=== PATIENT | female | born 1955 | race Caucasian/White ===

== ENCOUNTER 2023-05-11 08:03 | Outpatient (OUT) | payer MEDICARE, OTHER, SELFPAY ==
--- NOTE | 2023-05-11 08:15 | XR_ITS ---
The [address] [address] Patient Name: JAMES AYALA MRN: [id number] date: 1955 Sex: F Assigned Patient Location: [facility] Current Patient Location: [facility] Accession/Order Number: [id number] Exam Date: 05/11/2023 08:15 Report Date: 05/11/2023 08:39 At the request of: DANNY GUY Procedure: XR abdomen 1V EXAMINATION: XR abdomen 1V HISTORY: Kidney Stone N20.0 COMPARISON: XR KUB 08/02/2018 FINDINGS: KIDNEY/URETER - RIGHT: No visible renal or ureteral calcifications. KIDNEY/URETER - LEFT: No visible renal or ureteral calcifications. PELVIS: No visible ureteral stones. Chronic pelvic calcifications consistent with phleboliths. BOWEL: No abnormal dilation or deviation. BONES: Posterior mechanical fusion L3-4-5. OTHER: Multiple surgical clips within abdomen. XR/XR abdomen 1V IMPRESSION: 1. No appreciable urinary tract calculi. Electronically authenticated by: ANN PERKINS Date: 05/11/2023 08:39
== END 2023-05-11 08:04 | disposition home or self-care (01) ==
PROVIDERS: Visit Provider Urology
DX: N20.0 Calculus of kidney (principal)
CPT/HCPCS: 74018

== ENCOUNTER 2024-04-17 03:18 | Emergency (ER) | payer MEDICARE, OTHER, SELFPAY ==
[2024-04-17 03:24] VITALS: BP 188/99; PULSE 81; TEMP 36.6; O2SAT 98; BMI 32.3
--- NOTE | 2024-04-17 03:42 | ED.GENADUL1 ---
HPI HPI - General Adult General Chief complaint: Back Pain/Injury Stated complaint: flank pain Time Seen by Provider: 04/17/24 03:37 Source: patient Mode of arrival: walk-in Limitations: no limitations History of Present Illness HPI narrative: left flank pain 2 days radiates to LLQ. Past lumbar back surgery. Denies pain radiating down her leg. no fever or nausea Related Data Home Medications ?Medication ?Instructions ?Recorded ?Confirmed cetirizine 10 mg tablet (24Hour 10 mg PO DAILY 04/17/24 04/17/24 Allergy) losartan 100 mg tablet 100 mg PO DAILY 04/17/24 04/17/24 omeprazole 20 mg capsule,delayed 20 mg PO DAILY 04/17/24 04/17/24 release potassium bicarbonate-citric acid 25 meq PO BID 04/17/24 04/17/24 25 mEq effervescent tablet (Klor-Con/EF) Allergies Allergy/AdvReac Type Severity Reaction Status Date / Time Sulfa (Sulfonamide Allergy Rash Verified 04/17/24 03:28 Antibiotics) codeine AdvReac Nausea Verified 04/17/24 03:28 Opioid HPI Opioid Management Most Recent Opioid Data: Last Pain Scale 0 04/17/24 04:57 Last ED Pain Assessment 04/17/24 04:57 Last MAR Pain Assessment 04/17/24 04:05 Review of Systems ROS Status of ROS 10 or more systems reviewed and unremarkable except as noted in history and below [facility] Medical History (Updated 04/17/24 @ 06:39 by Srikanth Snyder MD) HTN (hypertension) ?I10 - Essential (primary) hypertension (ICD-10) Surgical History (Updated 04/17/24 @ 03:34 by Krystal Molina) Bariatric surgery status ?Z98.84 - Bariatric surgery status (ICD-10) Exam Constitutional Vital Signs, click to edit/add: Last Vital Signs Temp 98 F 04/17/24 03:24 Pulse 62 04/17/24 05:53 Resp 16 04/17/24 05:53 BP 97/67 04/17/24 05:53 Pulse Ox 97 04/17/24 05:53 O2 Del Method Room Air 04/17/24 05:00 Common normals: no apparent distress, average body habitus and oriented x3 HENMT Common normals: normocephalic and head/scalp atraumatic Eye Common normals: EOMs intact bilaterally and conjunctivae normal Respiratory Common normals: normal respiratory effort, no retractions, no use of accessory muscles and clear to auscultation bilaterally Cardio Common normals: regular rate, regular rhythm, S1 normal heart sound and S2 normal heart sound Back & Pelvis Other: mild L CVA tenderness Extremity Common normals: normal to inspection and full ROM Neuro Common normals: oriented x3, CN's II-XII intact bilaterally and moves all extremities Psych Appearance: grossly normal Course Vital Signs Vital signs: Vital Signs Temperature 98 F 04/17/24 03:24 Pulse Rate 81 04/17/24 03:24 Respiratory Rate 20 04/17/24 03:24 Blood Pressure 188/99 H 04/17/24 03:24 Pulse Oximetry 98 04/17/24 03:24 Oxygen Delivery Method Room Air 04/17/24 03:24 Temperature 98 F 04/17/24 03:24 Pulse Rate 62 04/17/24 05:53 Respiratory Rate 16 04/17/24 05:53 Blood Pressure 97/67 04/17/24 05:53 Pulse Oximetry 97 04/17/24 05:53 Oxygen Delivery Method Room Air 04/17/24 05:00 Medical Decision Making [facility] Narrative Medical decision making narrative: patient presents complaining of left CVA pain radiating to her LLQ suspicious for kidney stone. Past history of stones. CT without finding of left ureteral stone. did find non obstructive right 2mm stone. labs unremarkable except mild elevated Random BS at 128. likely elevated due to pain. UA pending. Pain has improved nicely with Toradol UA returned without findings of infection. she is advised that her back pain is likely the cause of her pain. Discharged with flexeril and advised to follow up with her doctor Lab Data Labs: Lab Results 04/17/24 04/17/24 Range/Units 03:32 05:43 WBC 8.3 (4.0-11.0) 10^3/uL RBC 4.65 (4.20-5.40) 10^6/uL Hgb 13.4 (12.0-16.0) g/dL Hct 42.3 (36.0-48.0) % MCV 91.0 (81.0-99.0) fL MCH 28.8 (26.7-34.0) pg MCHC 31.7 (29.9-35.2) g/dL RDW 13.4 (11.0-15.0) % Plt Count 233 (150-450) 10^3/uL MPV 10.7 (9.5-13.5) fL Neut % (Auto) 67.3 (43.0-75.0) % Lymph % (Auto) 24.8 (20.5-60.0) % Dane % (Auto) 5.4 (1.7-12.0) % Eos % (Auto) 0.6 L (0.9-7.0) % Baso % (Auto) 0.7 (0.2-2.0) % Neut # (Auto) 5.6 (1.4-6.5) 10^3/uL Lymph # (Auto) 2.1 (1.2-3.8) 10^3/uL Dane # (Auto) 0.5 (0.3-0.8) 10^3/uL Eos # (Auto) 0.1 (0.0-0.7) 10^3/uL Baso # (Auto) 0.1 (0.0-0.1) 10^3/uL Abs Immat Gran (auto) 0.10 H (0.00-0.03) 10^3/uL Imm/Tot Granulo (auto) 1.2 H (0.0-0.5) % Sodium 137 (136-145) mmol/L Potassium 4.1 (3.5-5.1) mmol/L Chloride 102 (98-107) mmol/L Carbon Dioxide 28.8 (21.0-32.0) mmol/L Anion Gap 10.3 BUN 12.0 (7.0-18.0) mg/dL Creatinine 0.79 (0.55-1.02) mg/dL Est GFR ( Amer) >60 (>=60) Est GFR (Non-Af Amer) >60 (>=60) BUN/Creatinine Ratio 15.2 Glucose 128 H (74-106) mg/dL Calcium 9.2 (8.5-10.1) mg/dL Urine Color Yellow (YELLOW) Urine Clarity Clear (CLEAR) Urine pH 6.5 (5.0-9.0) Ur Specific [place] 1.020 (1.005-1.025) Urine Protein Negative (NEG/TRACE) mg/dL Urine Glucose (UA) Negative (NEGATIVE) mg/dL Urine Ketones Negative (NEGATIVE) mg/dL Urine Occult Blood Negative (NEGATIVE) Urine Nitrite Negative (NEGATIVE) Urine Bilirubin Negative (NEGATIVE) Urine Urobilinogen 0.2 (0.2-1.0) EU/dL Ur Leukocyte Esterase Small A (NEGATIVE) Urine RBC None seen (0-2) #/HPF Urine WBC 2-5 A (NONE SEEN) #/HPF Ur Squamous Epith Cells Rare (NONE/RARE) #/LPF Urine Crystals None seen (None Seen) #/HPF Amorphous Sediment Rare Urine Bacteria None seen (NONE SEEN) #/HPF Urine Casts None seen (NONE SEEN) #/LPF Urine Mucus Trace A (NONE SEEN) Ur Culture Indicated? No Discharge Plan Discharge Stand Alone Forms: Work/School Release, Portal Instructions Chief Complaint: Back Pain/Injury Clinical Impression: Acute left flank pain Patient Disposition: Home, Self-Care Prescriptions / Home Meds: No Action losartan 100 mg tablet 100 mg PO DAILY Klor-Con/EF 25 mEq tablet, effervescent 25 meq PO BID omeprazole 20 mg capsule,delayed release(DR/EC) 20 mg PO DAILY cetirizine [24Hour Allergy] 10 mg tablet 10 mg PO DAILY Print Language: Hong [place]er Instructions: Flank Pain (ED) Referrals: Physician,Non-Staff, MD [Primary Care Provider] - 1 week
--- NOTE | 2024-04-17 03:43 | CT_ITS ---
The [address] [address] Patient Name: JAMES AYALA MRN: [facility]:[id number] date: 1955 Sex: F Assigned Patient Location: ER Current Patient Location: Accession/Order Number: [id number] Exam Date: 04/17/2024 04:08 Report Date: 04/17/2024 05:21 At the request of: TEJ MEZA Procedure: CT abdomen pelvis wo con EXAM: CT abdomen pelvis wo con HISTORY: left flank pain COMPARISON: CT abdomen and pelvis examination dated 05/24/2021. TECHNIQUE: Noncontrast axial CT images through the abdomen and pelvis were obtained with coronal and sagittal reformats. Dose reduction techniques were achieved by using automated exposure control and/or adjustment of mA and/or kV according to patient size and/or use of iterative reconstruction technique. FINDINGS: There is a stable, likely benign 1.7 cm nodule in the right lower lobe (series 3, image 1). Abdomen: Please note that the sensitivity for detection of focal lesions or vascular disease is markedly reduced without intravenous contrast. The liver and spleen are unremarkable. There is no intra or extrahepatic biliary duct dilatation. The gallbladder is surgically absent. There are nonobstructive right renal calculi measuring up to 2 mm. No ureteral calculus is seen. There is colonic diverticulosis without evidence of acute inflammation. There are postsurgical changes of a gastric bypass. Otherwise, the pancreas, adrenal glands, and bowel loops, including the appendix, are unremarkable. There is no mesenteric or retroperitoneal lymphadenopathy. Pelvis: The bladder demonstrates wall thickening. The rectum is unremarkable. There is no iliac or inguinal lymphadenopathy. The uterus is present. The left ovary appears within normal limits by CT. The right ovary is not clearly seen. There is mild atherosclerotic disease. Bone windows show no aggressive osseous lesions. There are postsurgical changes of L3-L5 posterior spinal fusion. The hardware causes streak artifact which renders evaluation of adjacent structures suboptimal. There is some lucency about the L5 screws. There is a new compression deformity of the L1 vertebral body. CT/CT abdomen pelvis wo con IMPRESSION: 1. Nonobstructive right renal calculi with no ureteral calculus or left renal calculi seen. 2. Status post cholecystectomy and gastric bypass. 3. Colonic diverticulosis without evidence of acute inflammation. 4. Normal appendix. 5. Urinary bladder wall thickening. Please correlate with urinalysis for infection. 6. Remote appearing compression deformity of the L1 vertebral body, new since at least 05/24/2021. Please correlate with point tenderness. 7. Postsurgical changes of L3-L5 posterior spinal fusion with some lucency about the L5 screw suggestive of loosening. Electronically authenticated by: Brett CHOW Date: 04/17/2024 05:21
[2024-04-17 03:51] LABS: Basophils Absolute Auto 0.1 10^3/uL (0.0-0.1); Basophils Percent Auto 0.7 % (0.2-2.0); Eosinophils Absolute Auto 0.1 10^3/uL (0.0-0.7); Eosinophils Percent Auto 0.6 % (0.9-7.0); Hematocrit 42.3 % (36.0-48.0); Hemoglobin 13.4 g/dL (12.0-16.0); Immature Granulocytes Pct Auto 1.2 % (0.0-0.5); Lymphocytes Absolute Auto 2.1 10^3/uL (1.2-3.8); Lymphocytes Percent Auto 24.8 % (20.5-60.0); Mean Corpuscular HGB Conc 31.7 g/dL (29.9-35.2); Mean Corpuscular Hemoglobin 28.8 pg (26.7-34.0); Mean Platelet Volume 10.7 fL (9.5-13.5); Monocytes Absolute Auto 0.5 10^3/uL (0.3-0.8); Monocytes Percent Auto 5.4 % (1.7-12.0); Neutrophils Absolute Auto 5.6 10^3/uL (1.4-6.5); Neutrophils Percent Auto 67.3 % (43.0-75.0); Platelet Count 233 10^3/uL (150-450); Red Blood Count 4.65 10^6/uL (4.20-5.40); Red Cell Distribution Width 13.4 % (11.0-15.0); White Blood Count 8.3 10^3/uL (4.0-11.0)
[2024-04-17 03:52] LABS: Anion Gap 10.3; BUN Creatinine Ratio 15.2; Calcium 9.2 mg/dL (8.5-10.1); Carbon Dioxide 28.8 mmol/L (21.0-32.0); Chloride 102 mmol/L (98-107); Estimated GFR (African America >60 (>=60); Estimated GFR (Non-African Ame >60 (>=60); Glucose 128 mg/dL (74-106); Potassium 4.1 mmol/L (3.5-5.1); Sodium 137 mmol/L (136-145)
[2024-04-17] MEDS: KETOROLAC TROMETHAMINE 30 MG/ML VIAL IVP (04:05)
[2024-04-17 04:57] VITALS: BP 142/68; PULSE 77; O2SAT 95
[2024-04-17 05:53] VITALS: BP 97/67; PULSE 62; O2SAT 97
[2024-04-17 05:53] LABS: Bilirubin Urine NEGATIVE (NEGATIVE); Blood Urine NEGATIVE (NEGATIVE); Clarity Urine CLEAR (CLEAR); Color Urine YELLOW (YELLOW); Glucose Urine UA NEGATIVE (NEGATIVE); Ketones Urine NEGATIVE (NEGATIVE); Leukocyte Esterase Urine SMALL (NEGATIVE); Nitrite Urine NEGATIVE (NEGATIVE); Protein Urine NEGATIVE (NEG/TRACE); Urobilinogen Urine 0.2 EU/dL (0.2-1.0); pH Urine 6.5 (5.0-9.0)
[2024-04-17 05:56] LABS: Urine Microscopic Indicated YES
[2024-04-17 05:59] LABS: Amorphous Sediment Urine RARE; Bacteria Urine NONE SEEN #/HPF (NONE SEEN); Cast Seen? NONE SEEN #/LPF (NONE SEEN); Crystals Seen? None Seen #/HPF (None Seen); Mucus Urine TRACE (NONE SEEN); RBC Urine NONE SEEN #/HPF (0-2); Squamous Epithelial Cell Urine RARE #/LPF (NONE/RARE); Urine Culture Indicated NO
[2024-04-17] MEDS: CYCLOBENZAPRINE HCL 10 MG TABLET PO (06:53)
[2024-04-17 07:03] VITALS: BP 147/86; PULSE 69; O2SAT 98
== END 2024-04-17 07:08 | disposition home or self-care (01) ==
PROVIDERS: Emergency Provider Internal Medicine
DX: R10.9 Unspecified abdominal pain (principal); Z87.442 Personal history of urinary calculi
CPT/HCPCS: 36415; 74176; 80048; 81001; 85025; 96374; 99284; J1885

== ENCOUNTER 2024-04-23 11:54 | Observation (INO) | payer MEDICARE, OTHER, SELFPAY ==
[2024-04-23] VITALS (19 sets, daily range): BP systolic 90–132; BP diastolic 54–75; PULSE 66–87; TEMP 36.6–37.9; O2SAT 91–98; BMI 32.3; BMI 33.6
--- NOTE | 2024-04-23 12:35 | ECG_ITS ---
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
--- NOTE | 2024-04-23 12:36 | PC.NURSE ---
2 weeks ago dx with kidney stone. 10 days ago seen for back pain at [facility]. dx with UTI prescribed keflex. Last dose taken today. positive blood cultures. no further medications prescribed.
[2024-04-23] MEDS: 0.9 % SODIUM CHLORIDE 1,000 ML 1000 ML IV (12:49)
[2024-04-23] MEDS: ONDANSETRON PF 4 MG/2 ML VIAL IV (12:50)
[2024-04-23] MEDS: KETOROLAC TROMETHAMINE 30 MG/ML VIAL 15 MG IVP (12:50)
[2024-04-23] MEDS: MORPHINE SULFATE 2 MG/ML SYRINGE IV (12:51)
[2024-04-23 12:55] LABS: Hematocrit 33.8 % (36.0-48.0); Hemoglobin 10.7 g/dL (12.0-16.0); Mean Corpuscular HGB Conc 31.7 g/dL (29.9-35.2); Mean Corpuscular Hemoglobin 28.1 pg (26.7-34.0); Mean Corpuscular Volume 88.7 fL (81.0-99.0); Mean Platelet Volume 10.5 fL (9.5-13.5); Platelet Count 219 10^3/uL (150-450); Red Blood Count 3.81 10^6/uL (4.20-5.40); Red Cell Distribution Width 13.6 % (11.0-15.0); White Blood Count 6.5 10^3/uL (4.0-11.0)
--- OUTSIDE RECORDS SUMMARY | 2024-04-23 13:11 | XMS_ITS | CCD ---
Author Organization [facility] [employer] Care Team Providers Care Director [employer] Name Role Phone MD NICOLAS MARTINEZ Admitting Unavail able MD NICOLAS MARTINEZ Attending Unavail able PUENTE, DARY MARLY Primary Care Unavailable RAMA ELIZALDE Consulting Unavailab Kareem MONGE, Neville Delgadillo Consulting Unavaila WILLIAM Benson Consulting Unavailable PUENTE, DARY MARLY Consulting Unavailable MD NICOLAS MARTINEZ Attending Unavail able PUENTE, DARY MARLY Primary Care Unavailable MD NICOLAS MARTINEZ Attending Unavail able PUENTE, DARY MARLY Primary Care Unavailable JAYLYN RUIZ Attending Unavailable [facility] Primary Care Unavailable [place] Consulting Unavailable JAYLYN RUIZ Admitting Unavailable JAYLYN RUIZ Consulting Unavailable PUENTE, DARY Farhad Primary Care Physician [phone] Martin ALEMAN Attending Unavailable YOUNG FONTAINE Attending Unavailab lauren HANPUENTE, DARY L Referring Unavailable PUENTE, DARY L Primary Care Unavailable SARITHA DARY L Referring Unavailable PUENTE, DARY L Primary Care Unavailable Dary Puente MD Primary Care Provider MIGDALIA CARVER Attending Unavailable PUENTE, DARY L Primary Care Unavailable PUENTE, DARY L Referring Unavailable ELGAFY, RYAN Attending Unavailable ELGAFY, RYAN Attending Unavailable ELGAFY, RYAN Attending Unavailable ELGAFY, RYAN Attending Unavailable ELGAFY, RYAN Attending Unavailable Allergies Allergy Classification Reported Allergen(s) Allergy Type Date of Onset Reaction(s) Facility NSAIDs (1 source) NSAIDs; Translations: [NSAIDs] Drug Allergy [facility] Repository Opioid Agonists (1 source) Codeine; Translations: [codeine] Drug Allergy [facility] Repository Sulfamethoxazole / Trimethoprim (1 source) Sulfamethoxazole / Trimethoprim; Translations: [Bactrim] Drug Allergy [facility] Repository (4 sources) Codeine; Translations: [CODEINE] Drug Allergy 11-10-19 14 [facility] Repository (1 source) Sulfamethoxazole / Trimethoprim Drug Allergy 04-05-20 13 [facility] Repository (7 sources) nickel; Translations: [Nickel] Drug Allergy 10-29-19 22 Unknown (qualifier value), Itching [facility] (3 sources) Sulfonamides (Antibiotic); Translations: [sulfa drugs] Drug allergy Unknown (qualifier value) [facility] (2 sources) Sulfamethoxazole / Trimethoprim; Translations: [SULFAMETHOXAZOLE-T RIMETHOPRIM] Drug Allergy 02-20-20 17 [facility] Repository (4 sources) Sulfonamides (Antibiotic); Translations: [SULFA (SULFONAMIDE ANTIBIOTICS)] Propensity to adverse reactions to drug (disorder) 01-01-20 17 Hives, Rash [facility] Repository (1 source) Codeine Drug Allergy 11-27-19 18 Vomiting [facility] Medications Current Medications Medication Drug Class(es) Dates Sig (Normalized) Sig (Original) [id number] 200 actuat albuterol 0.09 mg/actuat metered dose inhaler (3 sources) beta2-Adrenergic Agonist Start: 01-09-2022 take 2 puff(s) by inhalation every six hours as needed for wheezing albuterol (PROVENTIL HFA;VENTOLIN HFA) 90 mcg/actuation inhaler Indications: Mild intermittent asthma without complication Inhale 2 puffs every 6 (six) hours as needed for wheezing or shortness of breath. 18 g 11 01/09/2022 Active Start: 10-18-2021 albuterol (PRO VENTIL,VENTOLIN) nebulizer solution 2.5 mg End: 10-08-2023 albuterol sulfate (PROAIR HF A INHL) Inhale as needed. 0 10/08/2023 Discontinued (Duplicate Listing) Biotin (2 sources) Start: 06-02-2023 biotin Daily, Refills(s) 0 Start Date: 06/02/23 Status: Ordered take 1 capsule by mouth in the m orning biotin 10,000 mcg capsule Take 1 capsule by mouth in the morning. 0 Active calcium citrate 1190 mg / cholecalciferol 0.005 mg oral tablet (1 source) Vitamin D Start: 06-02-2023 take 1 tablet by mouth twice daily calcium (as citrate)-vitamin D 250 mg-200 intl units oral tablet tab(s), Oral, BID, Refill(s) 0 Start Date: 06/02/23 Status: Ordered calcium citrate/vitamin D3 (CALCIUM CITRATE + D ORAL) (1 source) calcium citrate/vitamin D3 (CALCIUM CITRATE + D ORAL) Take by mouth 3 (three) times a day. 0 Active Zyrtec (2 sources) Histamine-1 Receptor Antagonist Start: 06-02-2023 Zyrtec Daily, Refills(s) 0 Start Date: 06/02/23 Status: Ordered Start: 05-04-2017 take 1 tablet by pradeep once daily cetirizine (ZyrTEC) 10 mg tablet Indications: Seasonal allergic rhinitis due to pollen , Mild persistent asthma without complication Take 1 tablet (10 mg total) by mouth daily. 90 tablet 2 05/04/2017 Active fluticasone propionate 0.05 mg/actuat metered dose nasal spray (1 source) Corticosteroid Start: 05-04-2017 take 2 spray(s) nasal route once daily fluticasone (FLONASE) 50 mcg/actuation nasal spray Indications: Seasonal allergic rhinitis due to pollen , Mild persistent asthma without complication Administer 2 sprays into each nostril daily. 90 day supply 47.4 mL 2 05/04/2017 Active losartan potassium 50 mg oral tablet (3 sources) Angiotensin 2 Receptor Elisabeth Start: 09-08-2023 take 1 tablet by mouth in the morning losartan (COZAAR) 50 mg tablet Take 1 tablet (50 mg total) by mouth in the morning. 0 09/08/2023 Active Start: 06-02-2023 losartan 25 mg Tab Refills(s) 0 Start Date: 06/02/23 Status: Ordered multivitamin capsule (1 source) take 1 capsule by mouth in the morning multivitamin capsule Take 1 capsule by mouth in the morning. 0 Active Multivitamins and Minerals (2 sources) Start: Multivitamins and Minerals Refill(s) 0 Start Date: 04/29/21 Status: Ordered omeprazole 20 mg delayed release oral capsule (3 sources) Proton Pump Inhibitor Start: omeprazole 20 mg Cap-DR 90 EA, Refills(s) 0 Start Date: 06/02/22 Status: Ordered Start: 02-04-2022 take 1 capsule by [facility] once daily in the morning omeprazole (PriLOSEC) 20 mg capsule 1 capsule in am Orally Once a day 0 02/04/2022 Active trolamine salicylate (1 source) trolamine salicy late (ASPERCREME TOP) Apply topically as needed. 0 Active Completed/Discontinued Medications Medication Drug Class(es) Dates Sig (Normalized) Sig (Original) Effer-K 25 mEq oral tablet, effervescent (1 source) Start: 06-02-2022 take 1 tablet by mouth twice daily Effer-K 25 mEq oral tablet, effervescent 25 mEq = 1 tab(s), Oral, BID, # 60 tab(s), Refills(s) 6, [id number], 167, cm, 06/02/22 11:47:00 EDT, Height/Length Dosing, 103.7, kg, 06/02/22 11:47:00 EDT, Weight Dosing Start Date: 06/02/22 Status: Ordered FLUoxetine 10 mg oral capsule (3 sources) Serotonin Reuptake Inhibitor Start: 06-02-2022 take 1 capsule by mouth once daily FLUoxetine 10 mg Cap 30 EA, take 1 capsule by mouth once daily, Refills(s) 0 Start Date: 06/02/22 Status: Ordered FLUoxetine (PROz ac) 10 mg tablet Take 1 tablet (10 mg total) by mouth. 0 Active gabapentin 300 mg oral capsule (1 source) Anti-epileptic Agent Start: 11-19-2022 End: 10-08-2023 gabapentin (NEURONTIN) 300 mg capsule 1 capsule (300 mg total) 3 (three) times a day. 0 11/19/2022 10/08/2023 Discontinued (Surgery) magnesium oxide 400 mg oral tablet (1 source) End: 10-08-2023 take 1 tablet by mouth every other day magnesium oxide (MAGOX) 400 mg tablet Take 1 tablet (400 mg total) by mouth every other day. 0 10/08/2023 Discontinued (Patient Stopped On Own) potassium bicarbonate 25 meq effervescent oral tablet (2 sources) Start: 09-05-2021 take 1 tablet by mouth twice daily Effer-K 25 mEq oral tablet, effervescent 25 mEq = 1 tab(s), Oral, BID, # 60 tab(s), Refills(s) 6, [facility]acy: [facility] #[id number], 167, cm, 06/02/22 11:47:00 EDT, Height/Length Dosing, 103.7, kg, 06/02/22 11:47:00 EDT, Weight Dosing Start Date: 06/02/22 Status: Ordered Problems Active Problems Problem Classification Problem Date Documented Da te Episodic/Chronic Abdominal pain (4 sources) Unspecified abdominal pain; Translations: [UNSPECIFIED ABDOMINAL PAIN] Onset: 05-24-2021 Episodic Asthma (3 sources) Asthma; Translations: [Asthmatic bronchitis] Onset: 01-29-2017 04-29-2021 Chronic Calculus of urinary tract (6 sources) Personal history of urinary calculi; Translations: [Kidney stone] Onset: 05-28-2021 06-02-2022 Episodic Diabetes mellitus without complication (3 sources) Type 2 diabetes mellitus without complications; Translations: [Type 2 diabetes mellitus without complication] Onset: 01-02-2017 01-02-2017 Chronic Disorders of lipid metabolism (4 sources) Pure hypercholesterolemi a, unspecified; Translations: [Hypercholesterolem ia] Onset: 01-02-2017 04-29-2021 Chronic Esophageal disorders (2 sources) Gastro-esophageal reflux disease without esophagitis; Translations: [Gastroesophageal reflux disease] Onset: 01-29-2017 01-29-2017 Chronic Essential hypertension (4 sources) Essential (primary) hypertension; Translations: [Hypertensive disorder] Onset: 01-29-2017 04-29-2021 Chronic Mood disorders (1 source) Major depressive disorder; Translations: [Major depressive disorder, single episode, unspecified] Onset: 01-29-2017 01-29-2017 Chronic Nonmalignant breast conditions (4 sources) Unspecified lump in the right breast, upper outer quadrant; Translations: [Lump in right breast] Onset: 09-29-2023 10-08-2023 Episodic Osteoarthritis (2 sources) Arthritis 04-29-2021 Chronic Other aftercare (1 source) care home (current) use of aspirin; Translations: [MCFP CURRENT USE OF ASPIRIN] Onset: 05-28-2021 Episodic Other aftercare (1 source) 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 drugs; Translations: [POLICE LIE[employer] PRECINCT USE ORAL HYPOGLYCEMIC DX] Onset: 05-28-2021 Episodic Other aftercare (1 source) Other termite technician (current) drug therapy; Translations: [OTH POLICE LIEUTENANT PRECINCT CURRENT DRUG THERAPY] Onset: 05-28-2021 Episodic Other and unspecified benign neoplasm (1 source) Lipoma of breast; Translations: [Benign lipomatous neoplasm of skin and subcutaneous tissue of trunk] 10-08-2023 Episodic Other ear and sense organ disorders (1 source) Bilateral hearing loss; Translations: [Unspecified hearing loss, bilateral] Onset: 05-17-2019 05-17-2019 Chronic Other nutritional; endocrine; and metabolic disorders (1 source) Obesity; Translations: [Obesity, unspecified] Onset: 01-29-2017 01-29-2017 Chronic Other nutritional; endocrine; and metabolic disorders (3 sources) Severe obesity; Translations: [Morbid (severe) obesity due to excess calories] Onset: 09-26-2021 09-26-2021 Chronic Other upper respiratory disease (1 source) Seasonal allergic rhinitis; Translations: [Other seasonal allergic rhinitis] Onset: 05-04-2017 05-04-2017 Chronic Residual codes; unclassified (1 source) Obstructive sleep apnea syndrome; Translations: [Obstructive sleep apnea (adult) (pediatric)] Onset: 01-29-2017 01-29-2017 Chronic Residual codes; unclassified (1 source) Acquired absence of other specified parts of digestive tract; Translations: [ACQ ABSENCE OTH PART DIGESTV TRACT] Onset: 05-28-2021 Episodic Unclassified (1 source) New Patient Onset: 10-08-2023 Unclassified (2 sources) Wound Check; Translations: [Wound Check] Onset: 04-08-2023 Urinary tract infections (1 source) Urinary tract infection, site not specified; Translations: [UTI SITE NOT SPECIFIED] Onset: 05-28-2021 Episodic Past or Other Problems Problem Classification Problem Date Documented Date Episodic/Chronic Complications of surgical procedures or medical care (2 sources) Disruption of external operation (surgical) wound, not elsewhere classified, initial encounter; Translations: [Disruption of external operation (surgical) wound, not elsewhere classified, initial encounter] Onset: 04-15-2023 Episodic Deficiency and other anemia (3 sources) Anemia; Translations: [Anemia, unspecified] Onset: 11-26-2017 04-29-2021 Episodic Mood disorders (1 source) Mood disorders Onset: 05-17-2019 05-17-2019 Other aftercare (1 source) Post-discharge follow-up; Translations: [Encounter for follow-up examination after completed treatment for conditions other than malignant neoplasm] Onset: 12-14-2017 12-14-2017 Episodic Other connective tissue disease (2 sources) Arthrodesis status; Translations: [Arthrodesis status] Onset: 04-29-2023 Episodic Other ear and sense organ disorders (1 source) Otalgia, left ear; Translations: [Otalgia, unspecified] Onset: 10-01-2017 10-01-2017 Episodic Other lower respiratory disease (1 source) Nodule of lung; Translations: [Solitary pulmonary nodule] Onset: 01-29-2017 01-29-2017 Episodic Other nervous system disorders (2 sources) Other acute postprocedural pain; Translations: [Other acute postprocedural pain] Onset: 04-29-2023 Episodic Other screening for suspected conditions (not mental disorders or infectious disease) (1 source) Cardiovascular stress test abnormal; Translations: [Abnormal result of other cardiovascular function study] Onset: 10-11-2021 10-11-2021 Episodic Other upper respiratory infections (1 source) Acute frontal sinusitis; Translations: [Acute frontal sinusitis, unspecified] Onset: 10-01-2017 10-01-2017 Episodic Results Test Name Value Interpretation Reference Range Facility Follow-Upon 03-30-2024 Follow-Up [id number] Brian Peterson 1955 Provider Department Center 03/30/2024 RYAN STEVENS MP ORTHO MPORTHO No family history on file Level of Service:65794 MD OFFICE/OUTPATIENT ESTABLISHED LOW MDM 20 MIN (GC) Reason for Visit and Comments: Follow-up [[id number]] [facility] 36on 03-23-2024 36 Approving, but needs appt for additional refills. [facility] Refillon 03-23-2024 Refill [id number] Brian Peterson 1955 F Date Provider Department Center 03/23/2024 HILDAHIEURYAN MP ORTHO TALIBRTHO No family history on file Reason for Visit and Comments: Med Refill [[id number]] [facility] Follow-Upon 09-30-2023 Follow-Up [id number] Brian Peterson 1955 F Date Provider Department Center 09/30/2023 HILDA RYAN MP ORTHO MPORTHO No family history on file Level of Service:25036 MD OFFICE/OUTPATIENT ESTABLISHED [facility] 10 MIN Reason for Visit and Comments: Follow-up [339658] [facility] MAMM DIAGNOSTIC UNILAT RT W CADon 09-29-2023 MAMM DIAGNOSTIC UNILAT RT W CAD MAMM DIAGNOSTIC UNILAT RT W CAD EXAM: MAMM DIAGNOSTIC UNILAT RT W CAD, US BREAST RT LIMITED, 09/29/2023 8:57 AM CLINICAL INDICATIONS: Mass of upper outer quadrant of right breast, COMPARISON: Mammogram 05/13/2023 TECHNIQUE: Supplemental views of the right breast were obtained for diagnostic workup. Digital tomosynthesis images were obtained, with creation of synthetic 2D views. Computer aided detection was utilized. . Targeted ultrasound of the palpable abnormality also performed. FINDINGS: There are scattered areas of fibroglandular density. At the site of palpable abnormality 11:00 right breast, no mammographic abnormality seen. Targeted ultrasound of this region shows a 3.0 x 2.5 x 1.5 cm isoechoic to hyperechoic lesion with slight internal heterogeneity and no internal color flow vascularity. There are no other suspicious masses, calcifications, or areas of architectural distortions. IMPRESSION: Palpable area in the right breast is probably benign, likely a lipoma. Recommend correlation with physical examination findings. Six-month right breast ultrasound suggested to ensure stability. BI-RADS: BI-RADS 3 - Probably Benign Recommendation: Ultrasound in 6 months Patient was given the results before leaving the department. Finalized by Jay Taylor MD on 09/29/2023 9:30 AM 3 b US 6 MONTH [facility] US BREAST RT LIMITEDon 09-29 US BREAST RT LIMITED US BREAST RT LIMITED EXAM: MAMM DIAGNOSTIC UNILAT RT W CAD, US BREAST RT LIMITED, 09/29/2023 8:57 AM CLINICAL INDICATIONS: Mass of upper outer quadrant of right breast, COMPARISON: Mammogram 05/13/2023 TECHNIQUE: Supplemental views of the right breast were obtained for diagnostic workup. Digital tomosynthesis images were obtained, with creation of synthetic 2D views. Computer aided detection was utilized. . Targeted ultrasound of the palpable abnormality also performed. FINDINGS: There are scattered areas of fibroglandular density. At the site of palpable abnormality 11:00 right breast, no mammographic abnormality seen. Targeted ultrasound of this region shows a 3.0 x 2.5 x 1.5 cm isoechoic to hyperechoic lesion with slight internal heterogeneity and no internal color flow vascularity. There are no other suspicious masses, calcifications, or areas of architectural distortions. IMPRESSION: Palpable area in the right breast is probably benign, likely a lipoma. Recommend correlation with physical examination findings. Six-month right breast ultrasound suggested to ensure stability. BI-RADS: BI-RADS 3 - Probably Benign Recommendation: Ultrasound in 6 months Patient was given the results before leaving the department. Finalized by Jay Taylor MD on 09/29/2023 9:30 AM 3 b US 6 MONTH [facility] Ambulatory Visit Summaryon 1 Ambulatory Visit Summary FRANCISCA PETERSON :1955 Visit Date:06/02/2023 Ambulatory Visit Instructions Your Diagnosis Kidney stone Tests Performed Urnls Dip Stick Auto w/o Microscopy POC [id number] US Renal -- Results Pending -- XR Abdomen 1 View -- Results Pending -- Please visit your patient portal for your results or contact your primary care physician. Your Care Team Attending Physician - ZHEN VIDAL, MCKENZIE Fisher Primary Care Physician - SARITHA MONGE, DARY Llamas This Is Your Medications List Contact prescribing physician if questions or concerns biotin calcium-vitamin D (calcium (as citrate)-vitamin D 250 mg-200 intl units oral tablet) cetirizine (Zyrtec) fluoxetine (FLUoxetine 10 mg Cap) losartan (losartan 25 mg Tab) multivitamin with minerals (Multivitamins and Minerals) omeprazole (omeprazole 20 mg Cap-DR) potassium bicarbonate (Effer-K 25 mEq oral tablet, effervescent) Procedures Performed Gastric bypass (02/03/2022), Arthroplasty of the knee, Back, Cholecystectomy, Colonoscopy. Discharge Vitals Heart Rate (Peripheral) 68 Respiratory Rate 16 Blood Pressure 123/80 Height 167 cm Height 66 in Weight 87 kg Weight 191.4 lb BMI 31.2 What to do next Scheduled Follow-Up Appointments Thursday 9:45 AM EDT With: MALENA MONGE, Martin Singh Where: [facility] [place] [facility] Patient Educationon 06-02-20 Patient Education Urology Kidney Stones Kidney stones are rock-like masses that form inside of the kidneys. Kidneys are organs that make pee (urine). A kidney stone may move into other parts of the urinary tract, including: ? The tubes that connect the kidneys to the bladder (ureters). ? The bladder. ? The tube that carries urine out of the body (urethra). Kidney stones can cause very bad pain and can block the flow of pee. The stone usually leaves your body (passes) through your pee. You may need to have a doctor take out the stone. What are the causes? Kidney stones may be caused by: ? A condition in which certain glands make too much parathyroid hormone (primary hyperparathyroidism). ? A buildup of a type of crystals in the bladder made of a chemical called uric acid. The body makes uric acid when you eat certain foods. ? Narrowing (stricture) of one or both of the ureters. ? A kidney blockage that you were born with. ? Past surgery on the kidney or the ureters, such as gastric bypass surgery. What increases the risk? You are more likely to develop this condition if: ? You have had a kidney stone in the past. ? You have a family history of kidney stones. ? You do not drink enough water. ? You eat a diet that is high in protein, salt (sodium), or sugar. ? You are overweight or very overweight (obese). What are the signs or symptoms? Symptoms of a kidney stone may include: ? Pain in the side of the belly, right below the ribs (flank pain). Pain usually spreads (radiates) to the groin. ? Needing to pee often or right away (urgently). ? Pain when going pee (urinating). ? Blood in your pee (hematuria). ? Feeling like you may vomit (nauseous). ? Vomiting. ? Fever and chills. How is this treated? Treatment depends on the size, location, and makeup of the kidney stones. The stones will often pass out of the body through peeing. You may need to: ? Drink more fluid to help pass the stone. In some cases, you may be given fluids through an IV tube put into one of your veins at the hospital. ? Take medicine for pain. ? Make changes in your diet to help keep kidney stones from coming back. Sometimes, medical procedures are needed to remove a kidney stone. This may involve: ? A procedure to break up kidney stones using a beam of light (laser) or shock waves. ? Surgery to remove the kidney stones. Follow these instructions at home: Medicines ? Take [id number]-[id number] and prescription medicines only as told by your doctor. ? Ask your doctor if the medicine prescribed to you requires you to avoid driving or using heavy machinery. Eating and drinking ? Drink enough fluid to keep your pee pale yellow. You may be told to drink at least 8?10 glasses of water each day. This will help you pass the stone. ? If told by your doctor, change your diet. This may include: ? Limiting how much salt you eat. ? Eating more fruits and vegetables. ? Limiting how much meat, poultry, fish, and eggs you eat. ? Follow instructions from your doctor about eating or drinking restrictions. General instructions ? Collect pee samples as told by your doctor. You may need to collect a pee sample: ? 24 hours after a stone comes out. ? 8?12 weeks after a stone comes out, and every 6?12 months after that. ? Strain your pee every time you pee (urinate), for as long as told. Use the strainer that your doctor recommends. ? Do not throw out the stone. Keep it so that it can be tested by your doctor. ? Keep all follow-up visits as told by your doctor. This is important. You may need follow-up tests. How is this prevented? To prevent another kidney stone: ? Drink enough fluid to keep your pee pale yellow. This is the best way to prevent kidney stones. ? Eat healthy foods. ? Avoid certain foods as told by your doctor. You may be told to eat less protein. ? Stay at a healthy weight. Where to find more information ? National Kidney Foundation (NKF): www.kidney.org ? [employer] (UCF): www.urologyhealth.org Contact a doctor if: ? You have pain that gets worse or does not get better with medicine. Get help right away if: ? You have a fever or chills. ? You get very bad pain. ? You get new pain in your belly (abdomen). ? You pass out (faint). ? You cannot pee. Summary ? Kidney stones are rock-like masses that form inside of the kidneys. ? Kidney stones can cause very bad pain and can block the flow of pee. ? The stones will often pass out of the body through peeing. ? Drink enough fluid to keep your pee pale yellow. This information is not intended to replace advice given to you by your health care provider. Make sure you discuss any questions you have with your health care provider. Document Revised: 04/07/2022 Document Reviewed: 04/07/2022 [employer] Patient Education ? 2022 [employer]. [facility] Reminderson 06-02-2023 Reminders - From: Caroline Thompson To: GUERO Fontaine; Sent: 06/02/2023 14:58:54 EDT Show up: 05/03/2024 14:58:00 EDT Subject: KUB and JABIER prior to appt Reminder Message Please Remember to:_have pt complete JABIER and KUB prior to appt. Prefers TB. [facility] Urology Office/Clinic Noteon 06-02-2023 Urology Office/Clinic Note Chief Complaint 1yr KUB HPI Staff PRW pt 1yr KUB DX: Kidney Stone *Pt restarted on Effer-k therapy at time of last encounter... DC'd due to recent gastric bypass surgery at that time. KUB 05/11/23 Denies signs/symptoms of kidney stones. Occasional weak stream and urgency. Not bothersome. Denies urinary concerns. History of Present Illness staff HPI reviewed and agree. Review of Systems PHQ Score Initial Depression Screen Score: 0 no fever, chills, malaise, myalgia. no rash/lesions. no chest pain, palpitations, or SOB. no abdominal pain, nausea, vomiting. no unilateral calf swelling, redness, pain Physical Exam Vitals & Measurements HR: 68(Peripheral) RR: 16 BP: 123/80 HT: 66 in HT: 167 cm WT: 87 kg WT: 191.4 lb BMI: 31.2 General: nontoxic, NAD Mouth: moist mucosa Lungs: normal respiratory effort Cardio: regular rate, good distal perfusion Abdomen: nondistended, no suprapubic distention or tenderness, no CVA tenderness Neurologic: Grossly normal Skin: No rashes or suspicious lesions Assessment/Plan Dr. Aleman pt 1. Kidney stone (N20.0: Calculus of kidney) KUB 04/29/22 [facility] - neg. KUB 05/11/23 [facility] - neg for stones. continues potassium citrate 1 tab BID. no side effects. UA today negative for blood and infection. Denies any stone episodes since last encounter. Will continue to monitor with JABIER (says hx uric acid stones) and KUB. Follow up with KUB and JABIER in 1 year or sooner if needed. Pt understands and agrees with plan. Follow-up With When Contact Information ZHEN VIDAL, MCKENZIE Fisher, URL [address] [place] [address] [phone] Additional Instructions: 1 yr w/ KUB Patient Education Kidney Stones, [id number] Documentation recorded by the georgina Thompson accurately reflects the services(s) I performed and decisions made by me. Authenticated by Mckenzie Fontaine PA-C on 06/02/2023 17:02:02. I, Caroline Thompson, personally scribed for Mckenzie Fontaine PA-C on 06/02/2023 14:57:48. . Problem List/Past Medical History Ongoing Anemia Arthritis Asthma High cholesterol Hypertension Kidney stone Kidney stones Historical No qualifying data Procedure/Surgical History Gastric bypass (02/03/2022), Arthroplasty of the knee, Back, Cholecystectomy, Colonoscopy. Medications biotin, Daily calcium (as citrate)-vitamin D 250 mg-200 intl units oral tablet, Oral, BID Effer-K 25 mEq oral tablet, effervescent, 25 mEq= 1 tab(s), Oral, BID, 6 refills FLUoxetine 10 mg Cap losartan 25 mg Tab Multivitamins and Minerals omeprazole 20 mg Cap-DR Hines, Daily Allergies Nickel (Unknown) sulfa drugs (Unknown) Social History Tobacco Former smoker, quit more than 30 days ago Tobacco Use:. Never Smokeless Tobacco Use:. Cigarettes, Household tobacco concerns: No. Yes, 06/02/2023 Family History Arthritis: Mother. Diabetes mellitus type 2: Mother. Heart disease: Father. High cholesterol: Mother and Father. Hypertension: Mother and Father. Stroke: Mother. Immunizations Vaccine Date Status pneumococcal 13-valent vaccine 05/24/2020 Recorded influenza virus vaccine, inactivated 05/24/2020 Recorded influenza virus vaccine, inactivated 07/06/2019 Recorded influenza virus vaccine, inactivated 06/08/2018 Recorded influenza virus vaccine, inactivated 06/17/2017 Recorded Lab Results Ambulatory Point of Care Results Bilirubin Urine Dipstick: Negative (06/02/23 14:06:00) Blood Urine Dipstick: Negative (06/02/23 14:06:00) Glucose Urine Dipstick: Negative (06/02/23 14:06:00) Ketones Urine Dipstick: Negative (06/02/23 14:06:00) Leukocytes Urine Dipstick: Negative (06/02/23 14:06:00) Nitrite Urine Dipstick: Negative (06/02/23 14:06:00) Protein Urine Dipstick: Negative (06/02/23 14:06:00) Specific [place] Urine Dipstick: 1.020 (06/02/23 14:06:00) Urine Appearance Urine Dipstick: Clear (06/02/23 14:06:00) Urine Color Urine Dipstick: Yellow (06/02/23 14:06:00) Urobilinogen Urine Dipstick: Normal 0.2-1 EU/dl (06/02/23 14:06:00) pH Urine Dipstick: 6 (06/02/23 14:06:00) Normal [facility] Comment on above: Result Comment: Elec tronically Signed By: MCKENZIE FONTAINE PA-C\.br\Date and Time Signed: 06/02/23 17:02 EDT\.br\Electronically Co-Signed By: Caroline Thompson.br\Date and Time Co-Signed: 06/02/23 14:58 EDT RAD - MISCon 05-11-2023 RAD - MISC [id number] [id number] :[id number] [facility] Follow-Upon 04-29-2023 Follow-Up [id number] Brian Peterson estephania 1955 F Date Provider Department Center 04/29/2023 RYAN STEVENS MP ORTHO MPORTHO No family history on file Level of Service:88600 MD POSTOP FOLLOW UP VISIT RELATED TO ORIGINAL PX Reason for Visit and Comments: Follow-up [[id number]] Normal [facility] C-REACTIVE PROTEINon 023 C REACTIVE PROTEIN (MG/L) IN SER/PLAS 24.1 mg/L High 0.0-7.0 [facility] Comment on above: Performed By: #### L [id number] ####[facility] (BEAKER)[address] [place] [address] Labon 04-15-2023 Lab [id number] Brian Peterson estephania 1955 F Date Provider Department Center 04/15/2023 2244-[facility] MP LAB RESOURCE MP DRAW Medical Pavi No family history on file Normal [facility] Office Visiton 04-15-2023 Follow-up visit [id number] Brian Peterson estephania 1955 F Date Provider Department Center 04/15/2023 RYAN STEVENS ORTHO MPORTHO No family history on file Level of Service:25306 MD POSTOP FOLLOW UP VISIT RELATED TO ORIGINAL PX (GC) Reason for Visit and Comments: Follow-up [[id number]] - Requesting lab work, low grade temp Pain [136] - Requesting lab work, low grade temp Wound Check [[id number]] - Requesting lab work, low grade temp Normal [facility] SEDIMENTATION RATEon 023 SEDIMENTATION RATE, ERYTHROCYTE 50 mm/hr High <=20 [facility] Comment on above: Performed By: #### L [id number] #### [facility] ([facility]) [address] [place] [address] URINALYSIS MICROSCOPIC WITH REFLEX CULTUREon 04-15-2023 CALCIUM OXALATE CRYSTALS (#/HPF) IN URINE Many Abnormal None Seen [facility] Comment on above: Performed By: #### L [id number] ####[facility] (BEAKER)[address] [place] [address] CASTS IN URINE Present Abnormal None Seen [facility] Comment on above: Performed By: #### L [id number] ####[facility] [place] [address] CRYSTALS IN URINE Present Abnormal None Seen [facility] Comment on above: Performed By: #### L [id number] ####[facility] [place] [address] HYALINE CASTS /LPF IN URINE SEDIMENT BY MICROSCOPY 7 /LPF High <1 [facility] Comment on above: Performed By: #### L [id number] ####[facility] [place] [address] MUCUS (#/HPF) IN URINE SEDIMENT Many Abnormal None Seen, Occasional, Few [facility] Comment on above: Performed By: #### L [id number] ####[facility] ([facility])[address] [place] [address] OTHER MICROSCOPIC ELEMENTS Normal [facility] Comment on above: Performed By: #### L [id number] ####[facility] (BEAKER)[address] [place] [address] RBC (#/HPF) IN URINE SEDIMENT 0-2 Abnormal None Seen [facility] Comment on above: Performed By: #### L [id number] ####[facility] H[facility]PITAL [facility] (BEAKER)[address] [place] [address] SQUAMOUS EPITHELIAL CELLS (#/HPF) IN URINE SEDIMENT Few Abnormal None Seen, Occasional [facility] Comment on above: Performed By: #### L [id number] ####[facility] (BEAKER)[address] [place] [address] WBC (LEUKOCYTE) (#/HPF) IN URINE SEDIMENT 3-5 Abnormal None Seen [facility] Comment on above: Performed By: #### L [id number] ####[facility] HOSP[facility] LAB ([facility])[address] [place] [address] URINALYSIS WITH REFLEX CULTU REon 04-15-2023 BILIRUBIN, TOTAL PRESENCE IN URINE Negative Normal Negative [facility] Comment on above: Performed By: #### L [id number] #### [facility] ([facility]) [address] [place] [address] Clarity (U) Slightly Cloudy Abnormal Clear [facility] Comment on above: Performed By: #### L [id number] #### [facility] ([facility]) [address] [place] [address] Color (U) Neena Abnormal Yellow [facility] Comment on above: Performed By: #### L [id number] #### [facility] ([facility]) [address] [place] [address] Glucose (U) [Mass/Vol] Negative Normal Negative [facility] Comment on above: Performed By: #### L [id number] #### [facility] ([facility]) [address] [place] [address] HEMOGLOBIN PRESENCE IN URINE Negative Normal Negative [facility] Comment on above: Performed By: #### L [id number] #### [facility] ([facility]) [address] [place] [address] Ketones Ql (U) Negative Normal Negative [facility] Comment on above: Performed By: #### L [id number] #### [facility] ([facility]) [address] [place] [address] LEUKOCYTE ESTERASE PRESENCE IN URINE BY TEST STRIP Trace Abnormal Negative [facility] Comment on above: Performed By: #### L [id number] #### [facility] ([facility]) [address] [place] [address] NITRITE PRESENCE IN URINE Negative Normal Negative [facility] Comment on above: Performed By: #### L [id number] #### [facility] ([facility]AKER) [address] [place] [address] pH (U) 5.0 [pH] Normal 5.0-8.0 [facility] Comment on above: Performed By: #### L [id number] #### [facility] (BEAKER) [address] [place] [address] Protein (U) [Mass/Vol] 30 mg/dL Abnormal Negative [facility] Comment on above: Performed By: #### L [id number] #### [facility] ([facility] [address] [facility] [place] [address] Specific gravity (U) [Rel density] 1.030 High 1.015-1.020 [facility] Comment on above: Performed By: #### L [id number] #### [facility] ([facility]) [address] [place] [address] URINE CULTURE, ROUTINEon Bacteria identified Cx Nom (U) No growth at 18-24 hours Normal [facility] Comment on above: Performed By: #### L [id number] ####[facility] ([facility] [place] [address] 36on 04-14-2023 36 Patient notified and verbalized understanding. Normal [facility] 36 Patient states she h as spiked a fever of 101.3 last night, she has been taking tylenol and got her temp down to 99.3 this morning. She is also experiencing chills. She is unsure whether it is just a cold or if this is the start of an infection. She has finished her script of doxycycline today. She has an appointment with us tomorrow. Do you have any suggestions for her until she sees us tomorrow? Normal [facility] Office Visiton 04-08-2023 Follow-up visit [id number] Brian Peterson 1955 F Date Provider Department Center 04/08/2023 RYAN STEVENS MP ORTHO MPORTHO No family history on file Level of Service:49293 MD POSTOP FOLLOW UP VISIT RELATED TO ORIGINAL PX (GC) Reason for Visit and Comments: Wound Check [[id number]] Normal [facility] CBC AUTO DIFFon 05-24-2021 BASO # 0.0 103/ul Normal 0.0-0.1 [facility] Comment on above: Performed By: #### C BC #### [facility] [address] [place] [address] Dr. Anirudh Richmond Basophils/100 WBC (Bld) 0.2 % Normal 0.2-2.0 [facility] Comment on above: Performed By: #### C BC #### [facility] [address] [place] [address] Dr. Anirudh Richmond EO # 0.0 103/ul Normal 0.0-0.7 [facility] Comment on above: Performed By: #### C BC #### [facility] [address] [place] [address] Dr. Anirudh Richmond Eosinophils/100 WBC (Bld) 0.2 % Critically low 0.9-7.0 [facility] Comment on above: Performed By: #### C BC #### [facility] [address] [place] [address] Dr. Anirudh Richmond Erythrocyte distribution width (RBC) [Ratio] 13.7 % Normal 11.0-15.0 [facility] Comment on above: Performed By: #### C BC #### [facility] [address] [place] [address] Dr. Anirudh Richmond Hematocrit (Bld) [Volume fraction] 44.9 % Normal 36.0-48.0 [facility] Comment on above: Performed By: #### C BC #### [facility] [address] [place] [address] Dr. Anirudh Richmond Hemoglobin (Bld) [Mass/Vol] 14.3 g/dL Normal 12.0-16.0 [facility] Comment on above: Performed By: #### C BC #### [facility] [address] [place] [address] Dr. Anirudh Richmond IG # 0.01 10e3/ul Normal 0.00-0.03 [facility] Comment on above: Performed By: #### C BC #### [facility] [address] [place] [address] Dr. Anirudh Richmond IG % 0.2 % Normal 0.0-0.5 [facility] Comment on above: Performed By: #### C BC #### [facility] [address] [place] [address] Dr. Anirudh Richmond LYMPH # 1.0 103/ul Critically low 1.2-3.8 [facility] Comment on above: Performed By: #### C BC #### [facility] [address] [place] [address] Dr. Anirudh Richmond Lymphocytes/100 WBC (Bld) 19.8 % Critically low 20.5-60.0 [facility] Comment on above: Performed By: #### C BC #### [facility] [address] [place] [address] Dr. Anirudh Richmond MANUAL DIFF REQ NO Normal [facility] Comment on above: Performed By: #### C BC #### [facility] [address] [place] [address] Dr. Anirudh Richmond MCH (RBC) [Entitic mass] 28.6 pg Normal 26.7-34.0 [facility] Comment on above: Performed By: #### C BC #### [facility] [address] [place] [address] Dr. Anirudh Richmond MCHC (RBC) [Mass/Vol] 31.8 g/dL Normal 29.9-35.2 [facility] Comment on above: Performed By: #### C BC #### [facility] [address] [place] [address] Dr. Anirudh Richmond MCV (RBC) [Entitic vol] 89.8 fL Normal 81.0-99.0 [facility] Comment on above: Performed By: #### C BC #### [facility] [address] [place] [address] Dr. Anirudh Richmond MONO # 0.6 103/ul Normal 0.3-0.8 [facility] Comment on above: Performed By: #### C BC #### [facility] [address] [place] [address] Dr. Anirudh Richmond Monocytes/100 WBC (Bld) 12.0 % Normal 1.7-12.0 [facility] Comment on above: Performed By: #### C BC #### [facility] [address] [place] [address] Dr. Anirudh Richmond NEUT # 3.6 103/ul Normal 1.4-6.5 [facility] Comment on above: Performed By: #### C BC #### [facility] [address] [place] [address] Dr. Anirudh Richmond Neutrophils/100 WBC (Bld) 67.6 % Normal 43.0-75.0 [facility] Comment on above: Performed By: #### C BC #### [facility] [address] [place] [address] Dr. Anirudh Richmond Platelet mean volume (Bld) [Entitic vol] 12.0 fL Normal 9.5-13.5 [facility] Comment on above: Performed By: #### C BC #### [facility] [address] [place] [address] Dr. Anirudh Richmond PLT 108 103/ul Critically low 150-450 [facility] Comment on above: Performed By: #### C BC #### [facility] [address] [place] [address] Dr. Anirudh Richmond RBC 5.00 106/ul Normal 4.20-5.40 [facility] Comment on above: Performed By: #### C BC #### [facility] [address] [place] [address] Dr. Anirudh Richmond WBC 5.3 103/ul Normal 4.0-11.0 [facility] Comment on above: Performed By: #### C BC #### [facility] [address] [place] [address] ABD/PELVIS WO CONon 05-24 CT ABD/PELVIS WO CON EXAMINATION: CT ABD/PELVIS WO CON, 05/24/2021 3:06 PM EDT HISTORY: Left flank pain. Difficulty urinating. History of stones. COMPARISON: None. TECHNIQUE: CT scan of the abdomen and pelvis was performed without IV contrast. CT dose reduction technique was used, including Automated Exposure Control. FINDINGS: Within the visualized right lower lobe of the lung there is a partially included 1.7 x 1.6 cm pulmonary nodule, which was present on a prior chest CT from [facility] dated 02/23/2014, previously measuring approximately 1.3 x 1.2 cm. The pleural spaces are clear. Prior cholecystectomy. Mild hepatosplenomegaly. Allowing for the lack of intravenous contrast, the pancreas, adrenal glands and the kidneys are unremarkable. Mild atherosclerotic calcifications are present. No enlarged lymph nodes are present within the abdomen or the pelvis. The appendix has normal appearance. Diverticulosis without radiographic evidence of diverticulitis. Small fat-containing umbilical hernia. Locule of nondependent air is present within the urinary bladder. IMPRESSION: 1. No renal or ureteral calculi. 2. Locule of nondependent air is present within the urinary bladder. Recommend correlation for recent urinary bladder catheterization which may have been introduced air into the urinary bladder. Alternatively, UTI is not excluded on the basis of this study. Recommend correlation with urinalysis. 3. Normal appendix. Diverticulosis without radiographic evidence of diverticulitis. 4. Right lower lobe pulmonary nodule is again identified which is incompletely included on the current study, currently measuring 1.7 x 1.6 cm, previously measuring 1.3 x 1.2 cm on 02/23/2014. This likely secondary to indolent growth of a benign nodule. Continued surveillance with follow-up dedicated chest CT in 12 months time could be considered. 5. Hepatosplenomegaly. Prior cholecystectomy. Electronically authenticated by: LAST TRUONG Date: 2021-05-24 18:02 Normal [facility] CULTURE URINEon 05-24-2021 CULTURE URINE Culture Observations : LIGHT GROWTH OF MIXED GENITAL NALLELY. NO POTENTIAL PATHOGENS SEEN. Normal [facility] Comment on above: Performed By: #### U RCX #### [facility] [address] [place] [address] Dr. Anirudh Richmond ER URINE PROFILEon Bilirubin Ql (U) Negative Normal NEGATIVE [facility] Comment on above: Performed By: #### U MICRO, ERUR #### [facility] [address] [place] [address] Dr. Anirudh Richmond Clarity (U) CLEAR Normal CLEAR [facility] Comment on above: Performed By: #### U MICRO, ERUR #### [facility] [address] [address] [address] Anirudh Richmond Color (U) ORANGE Abnormal YELLOW [facility] Comment on above: Performed By: #### U MICRO, ERUR #### [facility] [address] [address] [address] Anirudh PAZD A micrscopic examination will be performed if indicated. Normal [facility] Comment on above: Performed By: #### U MICRO, ERUR #### [facility] [address] [address] [address] Anirudh Richmond Glucose Ql (U) Negative Normal NEGATIVE [facility] Comment on above: Performed By: #### U MICRO, ERUR #### [facility] [address] [place] [address] Dr. Anirudh Richmond Hemoglobin Ql (U) Negative Normal NEGATIVE [facility] Comment on above: Performed By: #### U MICRO, ERUR #### [facility] [address] [place] [address] Dr. Anirudh Richmond Ketones Ql (U) Negative Normal NEGATIVE [facility] Comment on above: Performed By: #### U MICRO, ERUR #### [facility] [address] [place] [address] Dr. Anirudh Richmond LEUKOCYTES SMALL Abnormal NEGATIVE [facility] Comment on above: Performed By: #### U MICRO, ERUR #### [facility] [address] [address] [address] Anirudh Richmond Nitrite Ql (U) Negative Normal NEGATIVE [facility] Comment on above: Performed By: #### U MICRO, ERUR #### [facility] [address] [place] [address] Dr. Anirudh Richmond pH (U) 5.5 [pH] Normal 5-9 [facility] Comment on above: Performed By: #### U MICRO, ERUR #### [facility] [address] [place] [address] Dr. Anirudh Richmond SPEC GRAVITY >=1.030 Abnormal 1.005-<=1.025 [facility] Comment on above: Performed By: #### U MICRO, ERUR #### [facility] [address] [place] [address] Dr. Anirudh Richmond UA PROTEIN Negative Normal NEGATIVE/ TRACE [facility] Comment on above: Performed By: #### U MICRO, ERUR #### [facility] [address] [place] [address] Dr. Anirudh Richmond UR MICRO IND INDICATED Normal [facility] Comment on above: Performed By: #### U MICRO, ERUR #### [facility] [address] [place] [address] Dr. Anirudh Richmond Urobilinogen Qn (U) 0.2 {Gael'U}/dL Normal 0.2 - 1.0 [facility] Comment on above: Performed By: #### U MICRO, ERUR #### [facility] [address] [place] [address] Dr. Anirudh Richmond LIPASEon 05-24-2021 Lipase [Catalytic activity/Vol] 66.0 U/L Normal 23.0-300.0 [facility] Comment on above: Performed By: #### C LATOYA, LIPA #### [facility] [address] [place] [address] Dr. Anirudh Richmond PROF 14(COMP METB)on 021 Albumin [Mass/Vol] 3.8 g/dL Normal 3.5-5.0 [facility] Comment on above: Performed By: #### C MP, LIPA #### [facility] [address] [place] [address] Dr. Anirudh Richmond Albumin/Globulin [Mass ratio] 1.1 {ratio} Normal [facility] Comment on above: Performed By: #### C MP, LIPA #### [facility] [address] [place] [address] Dr. Anirudh Richmond ALP [Catalytic activity/Vol] 65 U/L Normal 38-126 [facility] Comment on above: Performed By: #### C MP, LIPA #### [facility] Laboratory [address] [address] [address] Anirudh Richmond ALT [Catalytic activity/Vol] 47 U/L Normal 9-52 [facility] Comment on above: Performed By: #### C MP, LIPA #### [facility] Laboratory [address] [address] [address] Anirudh Richmond Anion gap [Moles/Vol] 11.7 mmol/L Normal [facility] Comment on above: Performed By: #### C MP, LIPA #### [facility] Laboratory [address] [place] [address] Dr. Anirudh Richmond AST [Catalytic activity/Vol] 41 U/L Critically high 14-36 [facility] Comment on above: Performed By: #### C MP, LIPA #### [facility] Laboratory [address] [place] [address] Dr. Anirudh Richmond Bilirubin [Mass/Vol] 0.4 mg/dL Normal 0.2-1.3 [facility] Comment on above: Performed By: #### C MP, LIPA #### [facility] Laboratory [address] [place] [address] Dr. Anirudh Richmond Calcium [Mass/Vol] 9.2 mg/dL Normal 8.4-10.2 [facility] Comment on above: Performed By: #### C MP, LIPA #### [facility] Laboratory [address] [place] [address] Dr. Anirudh Richmond Chloride [Moles/Vol] 99 mmol/L Normal 98-107 [facility] Comment on above: Performed By: #### C MP, LIPA #### [facility] Laboratory [address] [place] [address] Dr. Anirudh Richmond CO2 [Moles/Vol] 28.9 mmol/L Normal 22.0-30.0 [facility] Comment on above: Performed By: #### C MP, LIPA #### [facility] Laboratory [address] [place] [address] Dr. Anirudh Richmond Creatinine [Mass/Vol] 0.92 mg/dL Normal 0.52-1.04 [facility] Comment on above: Performed By: #### C MP, LIPA #### [facility] Laboratory [address] [address] [address] Anirudh Richmond EGFR-AF [place] >60 Normal >=60 [facility] Comment on above: Performed By: #### C MP, LIPA #### [facility] Laboratory [address] [address] [address] Anirudh Richmond EGFR-NON AF [place] >60 Normal >=60 [facility] Comment on above: Performed By: #### C MP, LIPA #### [facility] Laboratory [address] [address] [address] Anirudh Richmond Globulin (S) [Mass/Vol] 3.5 g/dL Normal [facility] Comment on above: Performed By: #### C MP, LIPA #### [facility] Laboratory [address] [place] [address] Dr. Anirudh Richmond Glucose [Mass/Vol] 170 mg/dL Critically high 74-106 [facility] Comment on above: Performed By: #### C MP, LIPA #### [facility] Laboratory [address] [address] [address] Anirudh Richmond Potassium [Moles/Vol] 3.6 mmol/L Normal 3.4-5.0 [facility] Comment on above: Performed By: #### C MP, LIPA #### [facility] Laboratory [address] [address] [address] Anirudh Richmond Protein [Mass/Vol] 7.3 g/dL Normal 6.1-8.2 [facility] Comment on above: Performed By: #### C MP, LIPA #### [facility] Laboratory [address] [address] [address] Anirudh Richmond Sodium [Moles/Vol] 136 mmol/L Critically low 137-145 [facility] Comment on above: Performed By: #### C MP, LIPA #### [facility] Laboratory [address] [address] [address] Anirudh Richmond Urea nitrogen [Mass/Vol] 18.0 mg/dL Critically high 7.0-17.0 [facility] Comment on above: Performed By: #### C MP, LIPA #### [facility] Laboratory [address] [address] [address] Anirudh Richmond Urea nitrogen/Creatinin e [Mass ratio] 19.6 mg/mg Normal [facility] Comment on above: Performed By: #### C MP, LIPA #### [facility] Laboratory [address] [place] [address] Dr. Anirudh Richmond URINE MICROSCOPIC ONLYon BACTERIA SMALL Abnormal NONE SEEN [facility] Comment on above: Performed By: #### U MICRO, ERUR #### [facility] Laboratory [address] [place] [address] Dr. Anirudh Richmond Bacteria identified Cx Nom (U) INDICATED Normal [facility] Comment on above: Performed By: #### U MICRO, ERUR #### [facility] Laboratory [address] [place] [address] Dr. Anirudh Richmond CAST NONE SEEN Normal NONE SEEN [facility] Comment on above: Performed By: #### U MICRO, ERUR #### [facility] [address] [place] [address] Dr. Anirudh Richmond Crystals LM Nom (Urine sed) NONE SEEN Normal NONE SEEN [facility] Comment on above: Performed By: #### U MICRO, ERUR #### [facility] [address] [place] [address] Dr. Anirudh Richmond Epithelial cells LM Ql (Urine sed) FEW Abnormal NONE SEEN /RARE [facility] Comment on above: Performed By: #### U MICRO, ERUR #### [facility] [address] [place] [address] Dr. Anirudh Richmond MUCOUS TRACE Abnormal NONE SEEN [facility] Comment on above: Performed By: #### U MICRO, ERUR #### [facility] [address] [place] [address] Dr. Anirudh Richmond RBC NONE SEEN Abnormal 0-2 [facility] Comment on above: Performed By: #### U MICRO, ERUR #### [facility] [address] [place] [address] Dr. Anirudh Richmond WBC 5-10 Abnormal NONE SEEN [facility] Comment on above: Performed By: #### U MICRO, ERUR #### [facility] [address] [address] [address] Anirudh Richmond .eGFRon 03-07-2021 eGFR AA >60 Normal >=60 [facility] Comment on above: Result Comment: See comment. Performed By: #### E GFR #### [facility] [address] [place] [address] eGFR Non-AA >60 Normal >=60 [facility] Comment on above: Result Comment: Stag es of Chronic Kidney Disease GFR Stage 3a Mild to moderate loss of kidney function 59 to 45 Stage 3b Moderate to severe loss of kidney function 44 to 33 Stage 4 Severe loss of kidney function 29 to 15 Stage 5 Kidney failure Less than 15 GFR calculated using the CKD-EPI Creatinine Equation (2009): eGFR = 141 X min(SCr/?, 1)? X max(SCr /?, 1)-1.209 X 0.993Age X 1.018 [if female] X 1.159 [if Black] Abbreviations/Units: eGFR (estimated glomerular filtration rate) = mL/min/1.73 m2 SCr (standardized serum creatinine) = mg/dL ? = 0.7 (females) or 0.9 (males) ? = -0.329 (females) or -0.411 (males) min = indicates the minimum of SCr/? or 1 max = indicates the maximum of SCr/? or 1 age = years Performed By: #### E GFR #### [address] [address] Basic Metabolic Profileon Anion gap [Moles/Vol] 10 mmol/L Normal 7-17 [facility] Comment on above: Performed By: #### C [id number] #### [facility] [address] [place] [address] Calcium [Mass/Vol] 8.1 mg/dL Low 8.5-10.3 [facility] Comment on above: Performed By: #### C [id number] #### [facility] [address] [place] [address] Chloride [Moles/Vol] 103 mmol/L Normal 98-110 [facility] Comment on above: Performed By: #### C [id number] #### [address] [address] CO2 [Moles/Vol] 26 mmol/L Normal 22-32 [facility] Comment on above: Performed By: #### C [id number] #### [address] [address] Creatinine [Mass/Vol] 0.79 mg/dL Normal 0.44-1.03 [facility] Comment on above: Performed By: #### C [id number] #### [address] [address] Glucose [Mass/Vol] 162 mg/dL High 70-99 [facility] Comment on above: Performed By: #### C [id number] #### [address] [address] Potassium [Moles/Vol] 4.0 mmol/L Normal 3.4-4.8 [facility] Comment on above: Performed By: #### C [id number] #### [address] [address] Sodium [Moles/Vol] 135 mmol/L Normal 133-142 [facility] Comment on above: Performed By: #### C [id number] #### [address] [address] Urea nitrogen [Mass/Vol] 21 mg/dL Normal 8-26 [facility] Comment on above: Performed By: #### C [id number] #### [address] [address] Urea nitrogen/Creatinin e [Mass ratio] 26.6 mg/mg High 10.0-20.0 [facility] Comment on above: Performed By: #### C [id number] #### [address] [address] Hgb & Hcton 03-07-2021 Hematocrit (Bld) [Volume fraction] 38.1 % Normal 36.0-46.0 [facility] Comment on above: Performed By: #### H BA1C #### [address] [id number] Hemoglobin (Bld) [Mass/Vol] 12.9 g/dL Normal 12.0-16.0 [facility] Comment on above: Performed By: #### H BA1C #### [address] [address] Hgb A1con 03-07-2021 Glucose [Mass/Vol] 126 mg/dL High 68-114 [facility] Comment on above: Result Comment: Math ematical Calc approx. The mean gluc equivalency of A1c Performed By: #### M G #### [place] [address] Hgb A1c 6.0 % A1c High 4.0-5.6 [facility] Comment on above: Result Comment: Refe rence Range: 4.0 - 5.6 % Normal 5.7 - 6.4 % Pre-Diabetes > 6.5 % Diabetes Performed By: #### M G #### [address] [id number] Inpatient Clinical Summaryon 03-07-2021 Inpatient Clinical Summary [address] [address] [place] [address] Clinical Summary Person Information Name: Francisca Peterson Age: 65 Years : 1955 Sex: Female PCP: Dary Puente MD Marital Status: PCP: [phone] Race: White Ethnicity: Not or Language: Gambian Visit Id: Visit Reason: Speciality: Acuity: Enc Type: Observation Med Service: Surgery Arrival: 03/06/2021 06:33:06 Discharge: Dispo Type: Address: [address] [place] [address] [place] [address] Diagnosis: 1:HTN (hypertension); 2:High cholesterol; 3:Diabetes; 4:Left knee pain; 5:Arthritis of left knee; 6:Asthma; 7:Obesity Discharged To: Home Treatments: Devices/Equipment: Professional Skilled Services: Special Services and Community Resources: Mode of Discharge Transportation: Discharge Orders Activity Restrictions Activity as tolerated-follow precautions. Activity Restrictions Continue to use your walker, crutches or cane as instructed by your physical therapist. Your therapist will tell you when you can discontinue use of walking aids. For many patients walking aids are needed only for the first few days after surgery. Activity Restrictions Exercise twice a day using the exercises on the therapy instructions sheet. It is good to continue this exercise regimen indefinitely. Activity Restrictions Walking is the best form of exercise. Begin with 15 minutes 3-4 times per day. Increase your walking time as tolerated. Activity Restrictions Continue to wear the anti-embolic (DMITRY) stockings 22-24 hours per day for 4 weeks as tolerable. Discharge Patient Education Review and attach [facility] Hip/Knee Inpatient Discharge Special Instructions Your total joint implant may set off metal detectors. Inform appropriate security personnel that you have an implant. You will be able to obtain an appropriate card from your doctor's office (ask the nurse at your follow-up appointment). Discharge Special Instructions Avoid all dental procedures and cleanings for 90 days after your surgery. Discharge Special Instructions If your dentist feels manipulation of your gum/teeth may introduce bacteria into your blood, they will need to prescribe antibiotics. Discharge Special Instructions Watch for these warning sign/symptoms and call your doctor if any occurs: Trouble breathing or shortness of breath; Prolonged nausea or vomiting; Chills or fever above 101 degrees F; Pain getting worse or not being helped by pain medication. Discharge Special Instructions Bruising may occur in the thigh for knee replacement patients. Do not be alarmed if this occurs. Discharge Special Instructions You may shower directly over incision 7 days after your surgery if there is no drainage from your incision, or 24 hours after drainage has stopped. Discharge Special Instructions Apply ice to operative area 20 minutes per hour while awake. Apply cloth between ice and skin for protection. Discharge Special Instructions Maintain a reasonable weight to avoid stress on your hip or knee and other joints. Discharge Special Instructions Inform all doctors who are treating you, including your dentist that you have a total joint implant. Some long-term precautions may need to be taken. Discharge Special Instructions Antibiotic therapy is needed when dental work and some surgical procedures are done. Call your doctor before any dental or surgical appointments for instructions and prescription antibiotic. Discharge Wound Care Leave the Aquacel bandage in place for one week after your surgery (replace only as necessary for drainage with the replacement from the hospital) Allergies Bactrim (Hives) NSAIDs (Ulcer - Gastric or Duodenal) codeine (Nausea & vomiting) Functional Status: Sensory Deficits: None History of Falls: None Mobility Assistance Prior to Admission: ADLs: Minimal assistance Gait: Steady Ambulation Assist: Assistive Device: Gait belt, Walker Special Orthopedic Devices: Current Level of Assistance for Self-Care/Mobility: Cognitive Status: Orientation: Orientation Assessment Oriented x 4 Level of Consciousness: Alert Characteristics of Speech: Clear Aspiration Risk: None Affect/Behavior: Appropriate, Cooperative Laboratory or Other Results This Visit (last charted value for your 03/06/2021 visit) Hematology 03/07/2021 5:58 AM Hct: 38.1 % -- Normal range between ( 36.0 and 46.0 ) Hgb: 12.9 g/dL -- Normal range between ( 12.0 and 16.0 ) Chemistry 03/07/2021 5:58 AM Creatinine Lvl: 0.79 mg/dL -- Normal range between ( 0.44 and 1.03 ) BUN: 21 mg/dL -- Normal range between ( 8 and 26 ) Glucose Lvl: 162 mg/dL -- Normal range between ( 70 and 99 ) Potassium Lvl: 4.0 mmol/L -- Normal range between ( 3.4 and 4.8 ) Sodium Lvl: 135 mmol/L -- Normal range between ( 133 and 142 ) Hgb A1c: 6. (more content not included)... Normal [facility] Magnesiumon 03-07-2021 Magnesium [Mass/Vol] 1.7 mg/dL Normal 1.7-2.4 [facility] Comment on above: Performed By: #### M G #### [address] [address] POC Glucose Randomon 021 Glucose [Mass/Vol] 160 mg/dL High 70-99 [facility] Comment on above: Performed By: #### H BA1C #### [address] [address] Glucose [Mass/Vol] 145 mg/dL High 70-99 [facility] Comment on above: Performed By: #### C [id number] #### [facility] [address] [place] [address] Operative Reporton 1 Operative Report Indication for Surge ry LEFT KNEE ARTHRITIS Preoperative Diagnosis LEFT KNEE ARTHRITIS Postoperative Diagnosis LEFT KNEE ARTHRITIS Operation Arthroplasty Knee Total Replacement-MIS, Left Yo persona total knee Persona CR 7 titanium cemented femoral component Persona stemmed E titanium tibial plateau with a 14 x 30 mm titanium stem 32 mm vitamin E patella 10 mm MC vitamin E poly- Surgeon(s) Nicolas Martinez MD (Surgeon - Primary) Box Order Person Pearl VIDAL, Cynthia Sanchez (Nuclear Licensing Engineer) Anesthesia General Alicia MONGE, Zayda Canas (Superintendent Construction) Aaliyah CAMARAQUALITY ASSURANCE ASSOCIATE, Leonor Love (Provider) Santos CHENG, Ritu Patel (Provider) Estimated Blood Loss 150.0 mL Urine Output no fernández Findings as abve Specimen(s) none Complications none Tourniquet Time Tourniquet Cuff 44x4 [id number], Thigh (Left), Total Time 37 Settin mmHg Sponge/Needle Count correct Fluid Count 1500 cc Catheters, Drains, Tubes Device: Drain Hemovac 08/24 400mL [id number] Electronically signed by ___ Nicolas Martinez MD 03/06/21 13:05 EDT Technique Patient was brought into the operating room and placed in a supine position on the operating table. General anesthetic was administered. Patient received Ancef. Left lower extremity was prepped with ChloraPrep and draped in a sterile fashion. A 10 cm medial parapatellar quad sparing incision was made. This is taken down through the skin and subcu tissue. Arthrotomy is made along the medial border the patella tendon through the medial retinaculum medial quad steps made superior pole of patella. Fat pad was excised. Marked degenerative changes were noted within the knee. Central drill holes placed on the femoral canal distal femoral cut was set at 5 degrees of valgus. Femoral tower marked for 3 degrees of external rotation. A size seven 4-in-1 cutting block was then used. Surface tibia was then osteotomized with a tibial jig. Remnants of menisci removed posterior capsule was injected with 20 cc of the total joint compound. Undersurface patella was then osteotomized with a 32 mm patellar dome. Owings holes placed knee was then cleansed with Simpulse with gentamicin irrigation solution. Trial reduction was then carried out knee was noted to be well balanced both in flexion extension. Trial components removed the tourniquet was elevated 3 and 50 mmHg. Methylmethacrylate was prepared. The tibial component was then cemented in place this is followed by cementing the femoral component placed and found the patella dome was cemented place all excess cement was removed. The 10 mm MC polywas then inserted and seated correctly. The tourniquet was released good hemostasis was noted. The defect structures were injected with the total joint compound as was skin margins. The vancomycin powder was sprinkled into the knee joint proper deep fascial layer was then closed with #1 Vicryl [id number] sutures over 2 Hemovac drains the subcu was sprinkled with remainder the vancomycin powder and closed in layers with the 2-0 Vicryl interrupted sutures. Skin was reapproximated 3-0 undyed Monocryl subcuticular stitch followed by Steri-Strips and skin fluffs ABDs Kerlix roll and Abel wrap from toe to groin. General acetic was discontinued. Patient received a gram of Ancef transferred to recovery in stable condition Modifier 22 Patient has a BMI over 40. This took an additional 5 minutes preparation time additional 45 minutes of surgical time an additional 10 minutes for a layered closure. Electronically signed by ___ Nicolas Martinez MD 03/06/21 13:09 EDT Normal [facility] POC Glucose Randomon 021 Glucose [Mass/Vol] 217 mg/dL High 70-99 [facility] Comment on above: Performed By: #### H [facility] #### [address] [address] Glucose [Mass/Vol] 146 mg/dL High 70-99 [facility] Comment on above: Performed By: #### C [id number] #### [address] [address] Glucose [Mass/Vol] 136 mg/dL High 70-99 [facility] Comment on above: Performed By: #### C [id number] #### [address] [address] Glucose [Mass/Vol] 98 mg/dL Normal 70-99 [facility] Comment on above: Performed By: #### H BA1C #### [address] [address] Glucose [Mass/Vol] 108 mg/dL High 70-99 [facility] Comment on above: Performed By: #### H BA1C #### [address] [address] .eGFRon 02-07-2021 eGFR AA >60 Normal >=60 [facility] Comment on above: Result Comment: See comment. Performed By: #### E GFR #### [address] [address] eGFR Non-AA 59 mL/min/1.73m? Low >=60 [facility] Comment on above: Result Comment: Stag es of Chronic Kidney Disease GFR Stage 3a Mild to moderate loss of kidney function 59 to 45 Stage 3b Moderate to severe loss of kidney function 44 to 33 Stage 4 Severe loss of kidney function 29 to 15 Stage 5 Kidney failure Less than 15 GFR calculated using the CKD-EPI Creatinine Equation (2009): eGFR = 141 X min(SCr/?, 1)? X max(SCr /?, 1)-1.209 X 0.993Age X 1.018 [if female] X 1.159 [if Black] Abbreviations/Units: eGFR (estimated glomerular filtration rate) = mL/min/1.73 m2 SCr (standardized serum creatinine) = mg/dL ? = 0.7 (females) or 0.9 (males) ? = -0.329 (females) or -0.411 (males) min = indicates the minimum of SCr/? or 1 max = indicates the maximum of SCr/? or 1 age = years Performed By: #### E GFR #### [address] [address] CBC w/ Diffon 02-07-2021 Erythrocyte distribution width (RBC) [Ratio] 14.0 % Normal 11.6-14.8 [facility] Comment on above: Performed By: #### H ULI #### [address] [address] Hematocrit (Bld) [Volume fraction] 45.1 % Normal 36.0-46.0 [facility] Comment on above: Performed By: #### Lawrence MCNALLY #### [address] [address] Hemoglobin (Bld) [Mass/Vol] 15.0 g/dL Normal 12.0-16.0 [facility] Comment on above: Performed By: #### Lawrence MCNALLY #### [address] [address] MCH (RBC) [Entitic mass] 29.9 pg Normal 27.0-35.0 [facility] Comment on above: Performed By: #### Lawrence MCNALLY #### [address] [address] MCHC 33.4 % Normal 31.0-37.0 [facility] Comment on above: Performed By: #### Lawrence MCNALLY #### [address] [address] MCV (RBC) [Entitic vol] 89.5 fL Normal 80.0-100.0 [facility] Comment on above: Performed By: #### Lawrence MCNALLY #### [address] [address] Platelet 156 x10*3/mcL Normal 150-350 [facility] Comment on above: Performed By: #### Lawrence MCNALLY #### [address] [address] Platelet mean volume (Bld) [Entitic vol] 9.7 fL Normal 6.7-10.6 [facility] Comment on above: Performed By: #### Lawrence BASHIR1C #### [address] [address] RBC 5.04 x10*6/mcL Normal 3.80-5.20 [facility] Comment on above: Performed By: #### Lawrence MCNALLY #### [address] [address] WBC 6.2 x10*3/mcL Normal 4.5-11.0 [facility] Comment on above: Performed By: ###John MCNALLY #### [address] [address] CMPon 02-07-2021 Albumin [Mass/Vol] 4.2 g/dL Normal 3.2-4.9 [facility] Comment on above: Performed By: ###John MCNALLY #### [address] [address] Albumin/Globulin [Mass ratio] 1.6 {ratio} Normal 1.1-2.2 [facility] Comment on above: Performed By: ###John MCNALLY #### [address] [address] Alk Phos 48 IU/L Normal 32-91 [facility] Comment on above: Performed By: #### Lawrence MCNALLY #### [address] [address] ALT [Catalytic activity/Vol] 49 U/L Normal 14-54 [facility] Comment on above: Performed By: ###John MCNALLY #### [address] [address] Anion gap [Moles/Vol] 13 mmol/L Normal 7-17 [facility] Comment on above: Performed By: ###John MCNALLY #### [address] [address] AST [Catalytic activity/Vol] 39 U/L Normal 15-41 [facility] Comment on above: Performed By: #### Lawrence MCNALLY #### [address] [address] Bili Total 1.0 mg/dL Normal 0.3-1.2 [facility] Comment on above: Performed By: #### Lawrence MCNALLY #### [address] [address] Calcium [Mass/Vol] 9.8 mg/dL Normal 8.5-10.3 [facility] Comment on above: Performed By: #### Lawrence MCNALLY #### [address] [address] Chloride [Moles/Vol] 101 mmol/L Normal 98-110 [facility] Comment on above: Performed By: #### Lawrence MCNALLY #### [address] [address] CO2 [Moles/Vol] 30 mmol/L Normal 22-32 [facility] Comment on above: Performed By: #### Lawrence MCNALLY #### [address] [address] Creatinine [Mass/Vol] 0.99 mg/dL Normal 0.44-1.03 [facility] Comment on above: Performed By: #### Lwarence MCNALLY #### [address] [address] Glucose [Mass/Vol] 117 mg/dL High 70-99 [facility] Comment on above: Performed By: #### Lawrence MCNALLY #### [address] [address] Potassium [Moles/Vol] 3.8 mmol/L Normal 3.4-4.8 [facility] [facility] Comment on above: Performed By: #### Lawrence MCNALLY #### [address] [address] Protein [Mass/Vol] 6.9 g/dL Normal 6.5-8.1 [facility] Comment on above: Performed By: #### Lawrence MCNALLY #### [address] [address] Sodium [Moles/Vol] 140 mmol/L Normal 133-142 [facility] Comment on above: Performed By: #### Lawrence BA1C #### [address] [address] Urea nitrogen [Mass/Vol] 24 mg/dL Normal 8-26 [facility] Comment on above: Performed By: #### Lawrence MCNALLY #### [address] [address] Urea nitrogen/Creatinin e [Mass ratio] 24.2 mg/mg High 10.0-20.0 [facility] Comment on above: Performed By: ###John MCNALLY #### [address] [address] Diff Autoon 02-07-2021 Baso Absolute 0.1 x10*3/mcL Normal 0.0-0.2 [facility] Comment on above: Performed By: ###John MCNALLY #### [address] [address] Basophils/100 WBC (Bld) 1.0 % Normal 0.0-1.5 [facility] Comment on above: Performed By: ###John Bravo BA1C #### [address] [address] Eos Absolute 0.1 x10*3/mcL Normal 0.0-0.4 [facility] Comment on above: Performed By: #### Lawrence MCNALLY #### [address] [address] Eosinophils/100 WBC (Bld) 1.7 % Normal 0.0-5.4 [facility] Comment on above: Performed By: ###John Bravo BA1C #### [address] [address] Lymph Absolute 1.9 x10*3/mcL Normal 1.0-4.8 [facility] Comment on above: Performed By: ###John MCNALLY #### [address] [address] Lymphocytes/100 WBC (Bld) 31.2 % Normal 27.2-40.8 [facility] Comment on above: Performed By: #### H BA1C #### [address] [address] Gallia Absolute 0.6 x10*3/mcL Normal 0.1-1.1 [facility] Comment on above: Performed By: #### H BA1C #### [address] [address] Monocytes/100 WBC (Bld) 9.2 % Normal 3.7-11.9 [facility] Comment on above: Performed By: #### H BA1C #### [address] [address] Neutro Absolute 3.5 x10*3/mcL Normal 1.8-7.7 [facility] Comment on above: Performed By: #### H BA1C #### [address] [address] Neutro Auto 56.9 % Normal 47.2-70.8 [facility] Comment on above: Performed By: #### H BA1C #### [address] [address] Hgb A1con 02-07-2021 Glucose [Mass/Vol] 134 mg/dL High 68-114 [facility] Comment on above: Result Comment: Math ematical Calc approx. The mean gluc equivalency of A1c Performed By: #### H BA1C #### [address] [address] Hgb A1c 6.3 % A1c High 4.0-5.6 [facility] Comment on above: Result Comment: Refe rence Range: 4.0 - 5.6 % Normal 5.7 - 6.4 % Pre-Diabetes > 6.5 % Diabetes Performed By: #### H BA1C #### [address] [address] Vital Signs Date Time Vital Sign Value Performing Clinician Faci lity 10-08-2023 10:39-0500 Body height 168.9 cm Migdalia Carver PR INTERN-HEEL BUILDER [facility] 10-08-2023 10:39-0500 Body mass index (BMI) [Ratio] 31.26 kg/m2 Migdalia Carver PR INTERN-HEEL BUILDER Work Phone[facility] 10-08-2023 10:39-0500 Body weight 89.18 kg Migdalia Carver PR INTERN-HEEL BUILDER [facility] 10-08-2023 10:39-0500 Respiratory rate 16 /min Migdalia Carver PR INTERN-HEEL BUILDER Work Phone[facility] 06-02-2023 14:07-0400 Blood Pressure Location MCKENZIE FONTAINE [facility] 06-02-2023 14:07-0400 Diastolic blood pressure 80 mm[Hg] MCKENZIE ZHEN [facility] 06-02-2023 14:07-0400 Heart rate 68 /min MCKENZIE ZHEN [facility] 06-02-2023 14:07-0400 Respiratory rate 16 /min MCKENZIE ZHEN [facility] 06-02-2023 14:07-0400 Systolic blood pressure 123 mm[Hg] MCKENZIE ZHEN [facility] 06-02-2022 11:45-0400 Blood Pressure Location Martin ALEMAN [facility] 06-02-2022 11:45-0400 Diastolic blood pressure 90 mm[Hg] Martin ALEMAN [facility] 06-02-2022 11:45-0400 Heart rate 80 /min Martin ALEMAN [facility] 06-02-2022 11:45-0400 Respiratory rate 16 /min Martin ALEMAN [facility] 06-02-2022 11:45-0400 Systolic blood pressure 140 mm[Hg] Martin ALEMAN [facility] Encounters Encounter Date Encounter Type Care Provider Facility Start: 06-03-2024 ambulatory Martin Smithi ty:[facility] Start: 03-30-2024 End: 03-30-2024 ambulatory [facility] Start: 10-08-2023 End: 10-08-2023 ambulatory MIGDALIA CARVER [facility] Start: 10-08-2023 End: 10-08-2023 Office consultation new/estab patient 40 min Migdalia Lozaman PR INTERN-HEEL BUILDER Work Phone: [facility] Comment on above: Lipoma of breast (Pr imary Dx); Mass of right breast, unspecified quadrant; Other signs and symptoms in breast Start: 09-30-2023 End: 09-30-2023 ambulatory [facility] Start: 09-29-2023 End: 09-30-2023 ambulatory [facility] Start: 06-02-2023 End: 06-03-2023 ambulatory YOUNG FONTAINE Facility:[facility] Start: 06-02-2023 End: 06-02-2023 Patient encounter procedure MCKENZIE FONTAINE [facility] Start: 04-29-2023 End: 04-29-2023 ambulatory [facility] Start: 04-15-2023 End: 04-15-2023 ambulatory [facility] Start: 04-15-2023 End: 04-15-2023 [facility] Start: 04-08-2023 End: 04-08-2023 ambulatory [facility] Start: 06-02-2022 End: 06-02-2022 Patient encounter procedure Martin ALEMAN [facility] Start: 05-24-2021 End: 05-24-2021 ambulatory JAYLYN RUIZ Facility: Start: 03-06-2021 End: 03-07-2021 ambulatory MD NICOLAS MARTINEZ Facility:[facility] Start: 02-25-2021 End: 02-26-2021 ambulatory MD NICOLAS MARTINEZ Facility:[facility] Start: 02-07-2021 End: 02-08-2021 ambulatory MD NICOLAS MARTINEZ Facility:[facility] Procedures Date Procedure Procedure Detail Performing Clinician Start: 03-30-2024 Follow-up visit Follow-up [facility] Start: 09-29-2023 Mammography Migdalia rodas PR INTERN-HEEL BUILDER Work Phone: Start: 02-03-2022 Bypass of stomach Rogelio ALEMAN Start: 12-14-2017 Diabetic retinal eye exam Migdalia Carver PR INTERN-HEEL BUILDER Work Phone: Arthroplasty of knee Martin ALEMAN Back structure, excl uding neck (body structure) MCKENZIE FONTAINE Cholecystectomy Martin MULTANI Colonoscopy Martin ALEMAN Plan of Treatment Date Care Activity Detail Author Start: 10-08-2024 Adult BMI Screening [facility] Start: 10-08-2024 Tobacco Screening [facility] Start: 09-29-2024 Screening for malign ant neoplasm of breast [facility] Start: 03-30-2024 End: 10-08-2024 US Breast - right limited Ultrasound breast limited right Imaging Routine Mass of right breast, unspecified quadrant Lipoma of breast Other signs and symptoms in breast Expected: 03/30/2024, Expires: 10/08/2024 [employer] Work Phone: Comment on above: Expected: 03/30/2024 , Expires: 10/08/2024 Start: 03-07-2023 Adult BMI Follow Up Plan Adult BMI Follow Up Plan [facility] Start: 2019 Fall Risk Screening Fall [facility] ing [facility] Start: 12-14-2018 Glaucoma screening Diabetic Op [facility]thalmology Exam [facility] Start: 1973 Administration of varicella zoster vaccine Zoster (Shingles) Vaccine (1 of 2) [facility] Start: 1973 DTaP,Tdap and Td Vac cines (1 - Tdap) DTaP,Tdap and Td Vaccines (1 - Tdap) [facility] Start: 1972 Diabetic foot examination Diabetic F oot Exam [facility] Start: 1966 Depression Screening Depression Scre ening [facility] Immunizations Immunization Date Immunization Notes Care Provider Dulce reyes 05-24-2020 influenza virus vaccine, unspecified formulation Martin ALEMAN [facility] 05-24-2020 pneumococcal conjuga te vaccine, 13 valent Martin ALEMAN [facility] 07-06-2019 influenza virus vaccine, unspecified formulation Martin ALEMAN [facility] 06-08-2018 influenza virus vaccine, unspecified formulation Martin ALEMAN [facility] 06-08-2018 influenza, injectabl e, quadrivalent, preservative free Migdalia Carver PR INTERN-HEEL BUILDER Work Phone: [employer] 06-17-2017 influenza virus vaccine, unspecified formulation Martin ALEMAN [facility] 06-17-2017 influenza, injectabl e, quadrivalent, preservative free Migdalia Carver PR INTERN-HEEL BUILDER Work Phone: [employer] Payers Date Payer Category Payer Medicare 2019 Medicare [id number] 2019 Unknown 2019 Unknown [id number] 1959 Medicare [id number] 1959 Unknown [id number] 1954 Unknown [id number] 2.16. [id number] 1954 Unknown [id number] 2.16. [id number] 1954 Unknown [id number] 2.16. [id number] 1954 Unknown [id number] 2.16.84 [id number] 1954 Unknown [id number] 2.16.8 [id number] 1954 Unknown [id number] 2.16.8 [id number] 1954 Unknown [id number] 2.16.8 [id number] 1954 Unknown [id number] 2.16.8 [id number] 1954 Unknown [id number] 2.16.8 [id number] Social History Date Type Detail Facility Start: 06-02-2022 End: 10-08-2023 Tobacco smoking status Ex-smoker (finding) [facility] Start: 09-13-2020 End: 10-08-2023 Sex Assigned At Female [facility] Tobacco smoking status Never [facility] End: 08-17-1978 History of tobacco use [facility] End: 08-17-1978 History of tobacco use [facility]igarette Sm[facility] Start: 09-13-2020 End: 10-08-2023 Cigarettes smoked current (pack per day) - Reported 0.5 [facility] Start: 10-08-2023 Tobacco use and exposure Smokeless tobacco [facility]-user [facility] Start: 10-08-2023 Alcohol intake Ex-drinker (finding) [facility] Start: 1955 Sex Assigned At Not on file [facility] [employer] [facility] Procedure Code Equipment Code Equipment Origin al Text Equipment Identifier Dates Inject 1 Pen Nee dle under the skin 4 (four) times a day. [id number] Start: 05-10-2018 Functional Status Date Assessment Result Facility 06-02-2023 Functional Status N/A [facility] 06-02-2022 Functional Status N/A [facility] Clinical Notes 03-06-2021 to 03-30-2024 Migdalia Carver APRN-HEEL BUILDER - 10/08/2023 10:00 AM EST Note Date & Type Note Facility 03-30-2024 Note Attestation signed by Ryan Tsai MD at 03/30/2024 11:33 AM Office Visit Attestation I personally saw this patient on the day of the encounter, performed the simpson portion(s) of the service and participated in the management and confirm the resident's documentation. Please note there may be an additional personal documentation from me. Chief Complaint: low back pain improved 03/30/24 Patient presents for follow-up now 13 months status post L3-L5 decompression and instrumented fusion for spondylolisthesis and spinal stenosis. Patient is doing very well postoperatively. She states her pain is minimal and is only noted after long periods of activity. She is states that she has begun mowing the grass, but wears her back brace when she does this. This has helped her pain during that cavity. She has no radicular symptoms. She denies any numbness/tingling. 09/30/23 HPI Radicular pain: improved Numbness/tingling: No Pain is getting: gradually improving Weakness: No Gait disturbance: No Fine hand dexterity problem: No Previous treatment for this problem: 02/12/2023 L3-L5 Decompression with Instrumented Fusion for spondylolisthesis and spinal stenosis ROS Constitutional: Fatigue: No Weight loss: No Fever: No Chills: No Past Surgical History: Procedure Laterality Date CARDIAC CATHETERIZATION CHOLECYSTECTOMY COLONOSCOPY CYSTOSCOPY URETHRAL DILATION GASTRIC BYPASS HERNIA REPAIR KNEE ARTHROPLASTY Left LITHOTRIPSY x3 LIVER BIOPSY PELVIC LAPAROSCOPY LAPAROSCOPY TIMES 3 UPPER GASTROINTESTINAL ENDOSCOPY Past Medical History: Diagnosis Date Allergic rhinitis Anemia Asthma Depression Diabetes (CMS/HCC) GERD (gastroesophageal reflux disease) Hepatic steatosis HL (hearing loss) Hyperlipidemia Hypertension Kidney stones Obesity PONV (postoperative nausea and vomiting) Pulmonary nodule RLL Sleep apnea Spondylolisthesis of lumbar region Past Surgical History: Procedure Laterality Date CARDIAC CATHETERIZATION CHOLECYSTECTOMY COLONOSCOPY CYSTOSCOPY URETHRAL DILATION GASTRIC BYPASS HERNIA REPAIR KNEE ARTHROPLASTY Left LITHOTRIPSY x3 LIVER BIOPSY PELVIC LAPAROSCOPY LAPAROSCOPY TIMES 3 UPPER GASTROINTESTINAL ENDOSCOPY Allergies Allergen Reactions Codeine GI intolerance Pt said might have been due to a kidney stone at the time, but is uncertain. Nickel Other reaction(s): Unknown Other reaction(s): Unknown Sulfa (Sulfonamide Antibiotics) Unknown Sulfamethoxazole-Trimethoprim Other reaction(s): Rash , Hives Current Outpatient Medications: albuterol 90 mcg/actuation inhaler, inhale 2 puffs by mouth and INTO THE LUNGS every 6 hours if neede... (REFER TO PRESCRIPTION NOTES)., Disp: , Rfl: ascorbic acid/multivit-min (EMERGEN-C IMMUNE PLUS ORAL), Take by mouth., Disp: , Rfl: biotin 1 mg tablet, Take 1,000 mcg by mouth in the morning., Disp: , Rfl: calcium citrate-vitamin D2 250 mg-2.5 mcg (100 unit) tablet, Take 1 tablet by mouth in the morning, at noon, and at bedtime., Disp: , Rfl: cetirizine (ZyrTEC) 10 mg tablet, Take 10 mg by mouth in the morning., Disp: , Rfl: doxycycline (Vibramycin) 100 mg capsule, take 1 capsule by mouth IN THE MORNING and at bedtime WITH A FULL GLASS OF WATER for 10 days (DO NOT LIE DOWN FOR AT ;EAST 30 MINUTES AFTER TAKING), Disp: 20 capsule, Rfl: 0 FLUoxetine (PROzac) 10 mg tablet, Take 10 mg by mouth in the morning., Disp: , Rfl: fluticasone (Flonase) 50 mcg/actuation nasal spray, Administer 1 spray into each nostril if needed for rhinitis. Shake gently. Before first use, prime pump. After use, clean tip and replace cap., Disp: , Rfl: gabapentin (Neurontin) 300 mg capsule, take 1 capsule by mouth IN THE MORNING AT NOON and at bedtime, Disp: 90 capsule, Rfl: 0 magnesium oxide (Mag-Ox) 400 mg (241.3 mg magnesium) tablet, Take 400 mg by mouth every other day., Disp: , Rfl: multivitamin capsule, Take 1 capsule by mouth in the morning., Disp: , Rfl: omeprazole (PriLOSEC) [address] capsule, Take 20 mg by mouth before breakfast., Disp: , Rfl: potassium bicarbonate (K-Lyte) 25 mEq effervescent tablet, Take 25 mEq by mouth in the morning and at bedtime., Disp: , Rfl: gabapentin (Neurontin) 300 mg capsule, Take 1 capsule (300 mg) by mouth in the morning, at noon, and at bedtime., Disp: 90 capsule, Rfl: 1 gabapentin (Neurontin) 300 mg capsule, Take 1 capsule (300 mg) by mouth in the morning, at noon, and at bedtime., Disp: 90 capsule, Rfl: 0 Social History Socioeconomic History Marital status: Spouse name: Not on file Number of children: Not on file Years of education: Not on file Highest education level: Not on file Occupational History Not on file Tobacco Use Smoking status: Former Types: [employer] (more content not included)... [facility] 10-08-2023 History of Present illness Narrative Images from the original note were not included. 10/08/2023 DIAGNOSIS: Francisca Peterson is a 68 y.o. female who [facility] for evaluation and recommendations regarding a right breast mass/lesion detected on imaging.. HISTORY OF PRESENT ILLNESS: Francisca Peterson is a 68 y.o. female who reports palpable right breast concern. Patient reports hx of palpable concern in 2017. This was worked up with diagnostic imaging and was felt to be benign. Patient reports a > 100 lb weight loss over the last 1.5 years following gastric bypass surgery. She states that this area feels significantly larger. Patient denies any other breast symptoms. Patient underwent right diagnostic mammogram and right breast ultrasound on 09/29/2023 at [facility]. Per the radiologist's report, at the site of palpable abnormality 11:00 right breast, no mammographic abnormality seen. Targeted ultrasound of this region shows a 3.0 x 2.5 x 1.5 cm isoechoic to hyperechoic lesion with slight internal heterogeneity and no internal color flow vascularity. This is probably benign, likely a lipoma. Recommend correlation with physical examination findings. Six-month right breast ultrasound suggested to ensure stability. GYNECOLOGICAL HISTORY AND RISK ASSESSMENT: First day of last menstrual period No LMP recorded (lmp unknown). Patient is postmenopausal. Age when you started your period: 12 Have you ever taken control pills? yes Have you ever taken Fertility Medication? yes Number of pregnancies: 1 Number of live births: 1 Age at first : 31 Did you breast feed? no Age at menopause: 50's Have you ever taken hormone replacement therapy? no HEALTH HISTORY: The patient's past medical history, medications, and allergies have been reviewed in Epic. PAST MEDICAL HISTORY: Past Medical History: Diagnosis Date Allergic Anemia Anxiety Asthma Breast disorder small lump on left breast keloid Dental disease missing teeth lower, crown on left side. Depression Diabetes mellitus type 2, controlled ([facility]) GERD (gastroesophageal reflux disease) Hearing loss Hepatic steatosis Hyperlipidemia Hypertension Kidney stones Dr Aleman Nodule of right lung OA (osteoarthritis) of neck Visual impairment wears corrective lenses PAST SURGICAL HISTORY: Past Surgical History: Procedure Laterality Date CHOLECYSTECTOMY COLONOSCOPY COLONOSCOPY N/A 12/04/2017 Performed by Ishan Hart MD at [facility] Coronary angiogram and left ventricular gram/pressure N/A 10/23/2021 Performed by Lisandra Carter MD at [facility] CARDIAC CATH LABS EGD N/A 12/04/2017 Performed by Ishan Hart MD at [facility] GASTRIC BYPASS 02/03/2022 LAPAROSCOPY x 3 LITHOTRIPSY PELVIC LAPAROSCOPY POSTERIOR LAMINECTOMY / DECOMPRESSION LUMBAR SPINE 02/12/2023 REPLACEMENT TOTAL KNEE Left 03/06/2021 URETHRAL DILATION MEDICATIONS: Current Outpatient Medications: albuterol (PROVENTIL HFA;VENTOLIN HFA) 90 mcg/actuation inhaler, Inhale 2 puffs every 6 (six) hours as needed for wheezing or shortness of breath. (Patient taking differently: Inhale 2 puffs as needed for wheezing or shortness of breath.), Disp: 18 g, Rfl: 11 BD ULTRA-FINE ADE PEN NEEDLE 32 gauge x 5/32 needle, Inject 1 Pen Needle under the skin 4 (four) times a day., Disp: 100 each, Rfl: 1 biotin 10,000 mcg capsule, Take 1 capsule by mouth in the morning., Disp: , Rfl: calcium citrate/vitamin D3 (CALCIUM CITRATE + D ORAL), Take by mouth 3 (three) times a day., Disp: , Rfl: cetirizine (ZyrTEC) 10 mg tablet, Take 1 tablet (10 mg total) by mouth daily., Disp: 90 tablet, Rfl: 2 FLUoxetine (PROzac) 10 mg tablet, Take 1 tablet (10 mg total) by mouth., Disp: , Rfl: fluticasone (FLONASE) 50 mcg/actuation nasal spray, Administer 2 sprays into each nostril daily. 90 day supply (Patient taking differently: Administer 2 sprays into each nostril as needed. 90 day supply), Disp: 47.4 mL, Rfl: 2 KLOR-CON/EF 25 mEq disintegrating tablet, 2 (two) times a day., Disp: , Rfl: losartan (COZAAR) 25 mg tablet, 1 tablet Orally Once a day for 90 days, Disp: , Rfl: losartan (COZAAR) 50 mg tablet, Take 1 tablet (50 mg total) by mouth in the morning., Disp: , Rfl: multivitamin capsule, Take 1 capsule by mouth in the morning., Disp: , Rfl: omeprazole (PriLOSEC) 20 mg capsule, 1 capsule in am Orally Once a day, Disp: , Rfl: trolamine salicylate (ASPERCREME TOP), Apply topically as needed., Disp: , Rfl: albuterol sulfate (PROAIR HFA INHL), Inhale as needed. (Patient not taking: Reported on 10/08/2023), Disp: , Rfl: gabapentin (NEURONTIN) 300 mg capsule, 1 capsule (300 mg total) 3 (three) times a day. (Patient not taking: Reported on 10/08/2023), Disp: , Rfl: magnesium oxide (MAGOX) 400 mg tablet, Take 1 tablet (400 mg total) by mouth every other day. (Patient not taking: Reported on 10/08/2023), Disp: , Rfl: Current Facility-Administered Medications: albuterol (PROVENTIL,VENTOLIN) nebulizer solution 2.5 mg, 2.5 mg, nebulization, Once, Teetee Lawrence APRN-CHARLA Facility-Administered Medications Ordered in Other Visits: sodium chloride 0.9 % flush 10 mL, 10 mL, intravenous, PRN, Bladimir Covarrubias, , 10 mL at 12/20/21 0814 ALLERGIES: Allergies Allergen Reactions Codeine Vomiting Pt said might have been due to a kidney stone at the time, but is uncertain. Nickel Itching Sulfa (Sulfonamide Antibiotics) Hives and Rash FAMILY HISTORY Family History Problem Relation Age of Onset Asthma Mother COPD Mother Diabetes Mother Hyperlipidemia Mother Stroke Mother Hypertension Mother Heart failure Mother Heart disease Mother Heart disease Father Aneurysm Father Hyperlipidemia Father Diabetes Maternal Grandmother Diabetes Maternal Grandfather Ovarian cancer Maternal Aunt Kidney cancer Maternal Aunt Colon cancer Paternal Uncle Prostate cancer Paternal Uncle Pancreatic cancer Paternal Aunt Breast cancer Neg Hx SOCIAL HISTORY Social History Socioeconomic History Marital status: Spouse name: Alejandro Number of children: 1 Occupational History 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 Pertinent patient information is noted below: Review of Systems Constitutional: Negative for chills, fatigue, fever and unexpected weight change. HENT: Negative for congestion, ear pain, hearing loss, postnasal drip, sneezing and sore throat. Eyes: Negative for pain and redness. Respiratory: Negative for cough, shortness of breath and wheezing. Cardiovascular: Negative for chest pain and palpitations. Gastrointestinal: Negative for abdominal pain, constipation, diarrhea, nausea and vomiting. Genitourinary: Negative for dysuria, frequency, menstrual problem, pelvic pain, vaginal bleeding and vaginal discharge. Musculoskeletal: Negative for arthralgias, back pain and myalgias. Skin: Negative for rash and wound. Neurological: Negative for dizziness, weakness, numbness and headaches. Psychiatric/Behavioral: Negative for confusion. The patient is not nervous/anxious. BREASTS: breast lump PHYSICAL EXAMINATION Resp 16 Ht 168.9 cm (5' 6.5 ) Wt 89.2 kg (196 lb 9.6 oz) LMP (LMP Unknown) BMI 31.26 kg/m GENERAL: no acute distress, well developed, well nourished. EYES: normal sclera/conjunctiva. ENT: hearing normal for conversation. NECK: no cervical lymphadenopathy, neck supple, trachea midline, no masses. LUNGS: clear to auscultation bilaterally, no wheeze, rhonchi or rales, normal respiratory effort. CARDIO: Regular rate and rhythm, S1 & S2 normal, no murmurs. BREAST (R): 11 o'clock far outer 1/3 with 3cm x 1cm firm, smooth, mobile mass; no skin changes, no tenderness, no nipple discharge, no nipple retraction, no supra/infraclavicular adenopathy, no axillary adenopathy, symmetrical breasts. BREAST (L): no masses present, no skin changes, no tenderness, no nipple discharge, no nipple retraction, no supra/infraclavicular adenopathy, no axillary adenopathy, symmetrical breasts. LYMPHATIC: no upper extremity lymphedema. ABDOMEN: soft, nontender, no masses palpable. MUSCULOSKELETAL: Gait normal, no CVAT, no spinal tenderness. NEUROLOGIC: alert and oriented to time, place and person. PSYCH: judgement and insight good, mood/affect full range. RADIOGRAPHIC IMAGING BREAST IMAGING reviewed and discussed with the patient: Mammography diagnostic unilateral right with CAD Narrative EXAM: MAMM DIAGNOSTIC UNILAT RT W CAD, US BREAST RT LIMITED, 09/29/2023 8:57 AM CLINICAL INDICATIONS: Mass of upper outer quadrant of right breast, COMPARISON: Mammogram 05/13/2023 TECHNIQUE: Supplemental views of the right breast were obtained for diagnostic workup. Digital tomosynthesis images were obtained, with creation of synthetic 2D views. Computer aided detection was utilized. . Targeted ultrasound of the palpable abnormality also performed. FINDINGS: There are scattered areas of fibroglandular density. At the site of palpable abnormality 11:00 right breast, no mammographic abnormality seen. Targeted ultrasound of this region shows a 3.0 x 2.5 x 1.5 cm isoechoic to hyperechoic lesion with slight internal heterogeneity and no internal color flow vascularity. There are no other suspicious masses, calcifications, or areas of architectural distortions. Impression Palpable area in the right breast is probably benign, likely a lipoma. Recommend correlation with physical examination findings. Six-month right breast ultrasound suggested to ensure stability. BI-RADS: BI-RADS 3 - Probably Benign Recommendation: Ultrasound in 6 months Patient was given the results before leaving the department. Finalized by Jay Taylor MD on 09/29/2023 9:30 AM 3 b US 6 MONTH ASSESSMENT: ICD-10-CM 1. Lipoma of breast D17.1 2. Mass of right breast, unspecified quadrant N63.10 Francisca Peterson is a 68 y.o. female with palpable concern right breast. PLAN OF CARE: Discussed and reviewed with patient recent imaging findings and clinical breast exam findings. Case consulted with radiologist at [facility] to ensure appropriate treatment recommendations. Mammogram shows changes most compatible with weight loss. No suspicious findings on mammogram or targeted ultrasound. Calcs stable. Lump is consistent with lipoma. Treatment options discussed. Will request 6 month f/u ultrasound, to be scheduled at [facility]. Follow up to be determined - await imaging results. Patient advised to monitor, notify our office of any changes, questions or concerns. The patient is in agreement with plan as discussed. All questions answered. Total time spent was 30 minutes: Preparing to see the patient (e.g., review of tests) Obtaining and/or reviewing separately obtained history Performing a medically appropriate examination and/or evaluation Counseling and educating the patient/family/caregiver Ordering medications, tests, or procedures Referring and communicating with other health career law clerk (not separately reported) Documenting clinical information in the electronic or other health record Independently interpreting results (not separately reported) and communicating results to the patient/family/caregiver Migdalia Carver CNP [facility] Breast Surgery [phone] FLOYD Tripathi 10/08/23 1627 documented in this encounter [facility] 09-30-2023 Note Chief Complaint: low back pain improved HPI Radicular pain: improved Numbness/tingling: No Pain is getting: gradually improving Weakness: No Gait disturbance: No Fine hand dexterity problem: No Previous treatment for this problem: 02/12/2023 L3-L5 Decompression with Instrumented Fusion for spondylolisthesis and spinal stenosis ROS Constitutional: Fatigue: No Weight loss: No Fever: No Chills: No Past Surgical History: Procedure Laterality Date CARDIAC CATHETERIZATION CHOLECYSTECTOMY COLONOSCOPY CYSTOSCOPY URETHRAL DILATION GASTRIC BYPASS HERNIA REPAIR KNEE ARTHROPLASTY Left LITHOTRIPSY x3 LIVER BIOPSY PELVIC LAPAROSCOPY LAPAROSCOPY TIMES 3 UPPER GASTROINTESTINAL ENDOSCOPY Past Medical History: Diagnosis Date Allergic rhinitis Anemia Asthma Depression Diabetes (CMS/HCC) GERD (gastroesophageal reflux disease) Hepatic steatosis HL (hearing loss) Hyperlipidemia Hypertension Kidney stones Obesity PONV (postoperative nausea and vomiting) Pulmonary nodule RLL Sleep apnea Spondylolisthesis of lumbar region Past Surgical History: Procedure Laterality Date CARDIAC CATHETERIZATION CHOLECYSTECTOMY COLONOSCOPY CYSTOSCOPY URETHRAL DILATION GASTRIC BYPASS HERNIA REPAIR KNEE ARTHROPLASTY Left LITHOTRIPSY x3 LIVER BIOPSY PELVIC LAPAROSCOPY LAPAROSCOPY TIMES 3 UPPER GASTROINTESTINAL ENDOSCOPY Allergies Allergen Reactions Codeine GI intolerance Pt said might have been due to a kidney stone at the time, but is uncertain. Nickel Other reaction(s): Unknown Other reaction(s): Unknown Sulfa (Sulfonamide Antibiotics) Unknown Sulfamethoxazole-Trimethoprim Other reaction(s): Rash , Hives Current Outpatient Medications: albuterol 90 mcg/actuation inhaler, inhale 2 puffs by mouth and INTO THE LUNGS every 6 hours if neede... (REFER TO PRESCRIPTION NOTES)., Disp: , Rfl: ascorbic acid/multivit-min (EMERGEN-C IMMUNE PLUS ORAL), Take by mouth., Disp: , Rfl: biotin 1 mg tablet, Take 1,000 mcg by mouth in the morning., Disp: , Rfl: calcium citrate-vitamin D2 250 mg-2.5 mcg (100 unit) tablet, Take 1 tablet by mouth in the morning, at noon, and at bedtime., Disp: , Rfl: cetirizine (ZyrTEC) 10 mg tablet, Take 10 mg by mouth in the morning., Disp: , Rfl: FLUoxetine (PROzac) 10 mg tablet, Take 10 mg by mouth in the morning., Disp: , Rfl: fluticasone (Flonase) 50 mcg/actuation nasal spray, Administer 1 spray into each nostril if needed for rhinitis. Shake gently. Before first use, prime pump. After use, clean tip and replace cap., Disp: , Rfl: gabapentin (Neurontin) 300 mg capsule, Take 1 capsule (300 mg) by mouth in the morning, at noon, and at bedtime., Disp: 90 capsule, Rfl: 1 gabapentin (Neurontin) 300 mg capsule, Take 1 capsule (300 mg) by mouth in the morning, at noon, and at bedtime., Disp: 90 capsule, Rfl: 0 magnesium oxide (Mag-Ox) 400 mg (241.3 mg magnesium) tablet, Take 400 mg by mouth every other day., Disp: , Rfl: multivitamin capsule, Take 1 capsule by mouth in the morning., Disp: , Rfl: omeprazole (PriLOSEC) [address] capsule, Take 20 mg by mouth before breakfast., Disp: , Rfl: potassium bicarbonate (K-Lyte) 25 mEq effervescent tablet, Take 25 mEq by mouth in the morning and at bedtime., Disp: , Rfl: Social History Socioeconomic History Marital status: Spouse name: Not on file Number of children: Not on file Years of education: Not on file Highest education level: Not on file Occupational History Not on file Tobacco Use Smoking status: Former Types: Cigarettes Quit date: 1978 Years since quittin.1 Smokeless tobacco: Never Vaping Use Vaping Use: Never used Substance and Sexual Activity Alcohol use: Not Currently Drug use: Never Sexual activity: Defer Other Topics Concern Not on file Social History Narrative Not on file Social Determinants of Health Financial Resource Strain: Low Risk (02/12/2023) Overall Financial Resource Strain (CARDIA) Difficulty of Paying Living Expenses: Not hard at all Food Insecurity: Not on file (02/12/2023) Transportation Needs: Not on file (02/12/2023) Physical Activity: Not on file Stress: Not on file Social Connections: Not on file Intimate Partner Violence: Not on file (04/15/2023) Housing Stability: Not on file (02/12/2023) No family history on file. Physical Exam There were no vitals taken for this visit. Musculoskeletal Ortho spine musculoskeletal examination: Alignment spine: normal Tenderness: no midline or paraspinal Range of motion Cervical spine: normal Range of motion lumbar spine: normal Neurological Biceps strength: 5 Wrist extension: 5 Triceps strength: 5 Finger flexor: 5 Finger abduction strength: 5 Flexion at the hip strength: 5 Quadriceps strength: 5 Tibialis anterior strength: 5 Plantar flexion strength: 5 Extensor Hallicis Longus strength: 5 Sensory Exam: intact Straigh (more content not included)... [facility] 06-02-2023 Hospital Discharge instructions Patient Education 06/02/2023 14:51:40 Kidney Stones, [id number] Kidney Stones Kidney stones are rock-like masses that form inside of the kidneys. Kidneys are organs that make pee (urine). A kidney stone may move into other parts of the urinary tract, including: The tubes that connect the kidneys to the bladder (ureters). The bladder. The tube that carries urine out of the body (urethra). Kidney stones can cause very bad pain and can block the flow of pee. The stone usually leaves your body (passes) through your pee. You may need to have a doctor take out the stone. What are the causes? Kidney stones may be caused by: A condition in which certain glands make too much parathyroid hormone (primary hyperparathyroidism). A buildup of a type of crystals in the bladder made of a chemical called uric acid. The body makes uric acid when you eat certain foods. Narrowing (stricture) of one or both of the ureters. A kidney blockage that you were born with. Past surgery on the kidney or the ureters, such as gastric bypass surgery. What increases the risk? You are more likely to develop this condition if: You have had a kidney stone in the past. You have a family history of kidney stones. You do not drink enough water. You eat a diet that is high in protein, salt (sodium), or sugar. You are overweight or very overweight (obese). What are the signs or symptoms? Symptoms of a kidney stone may include: Pain in the side of the belly, right below the ribs (flank pain). Pain usually spreads (radiates) to the groin. Needing to pee often or right away (urgently). Pain when going pee (urinating). Blood in your pee (hematuria). Feeling like you may vomit (nauseous). Vomiting. Fever and chills. How is this treated? Treatment depends on the size, location, and makeup of the kidney stones. The stones will often pass out of the body through peeing. You may need to: Drink more fluid to help pass the stone. In some cases, you may be given fluids through an IV tube put into one of your veins at the hospital. Take medicine for pain. Make changes in your diet to help keep kidney stones from coming back. Sometimes, medical procedures are needed to remove a kidney stone. This may involve: A procedure to break up kidney stones using a beam of light (laser) or shock waves. Surgery to remove the kidney stones. Follow these instructions at home: Medicines Take qpnu-vpd-kinoaox and prescription medicines only as told by your doctor. Ask your doctor if the medicine prescribed to you requires you to avoid driving or using heavy machinery. Eating and drinking Drink enough fluid to keep your pee pale yellow. You may be told to drink at least 8 10 glasses of water each day. This will help you pass the stone. If told by your doctor, change your diet. This may include: ?Limiting how much salt you eat. ?Eating more fruits and vegetables. ?Limiting how much meat, poultry, fish, and eggs you eat. Follow instructions from your doctor about eating or drinking restrictions. General instructions Collect pee samples as told by your doctor. You may need to collect a pee sample: ?24 hours after a stone comes out. ?8 12 weeks after a stone comes out, and every 6 12 months after that. Strain your pee every time you pee (urinate), for as long as told. Use the strainer that your doctor recommends. Do not throw out the stone. Keep it so that it can be tested by your doctor. Keep all follow-up visits as told by your doctor. This is important. You may need follow-up tests. How is this prevented? To prevent another kidney stone: Drink enough fluid to keep your pee pale yellow. This is the best way to prevent kidney stones. Eat healthy foods. Avoid certain foods as told by your doctor. You may be told to eat less protein. Stay at a healthy weight. Where to find more information National Kidney Foundation (NKF): www.kidney.org [facility] (UCF): www.urologyhealth.org Contact a doctor if: You have pain that gets worse or does not get better with medicine. Get help right away if: You have a fever or chills. You get very bad pain. You get new pain in your belly (abdomen). You pass out (faint). You cannot pee. Summary Kidney stones are rock-like masses that form inside of the kidneys. Kidney stones can cause very bad pain and can block the flow of pee. The stones will often pass out of the body through peeing. Drink enough fluid to keep your pee pale yellow. This information is not intended to replace advice given to you by your health care provider. Make sure you discuss any questions you have with your health care provider. Document Revised: 04/07/2022 Document Reviewed: 04/07/2022 [employer] Patient Education 2022 [employer]. Follow Up Care 06/02/2022 12:11:19 With:MCKENZIE FONTAINE PA-C, URL Address: [address] [place] [id number] When: Unknown Comments:1 yr w/ [facility] 04-29-2023 Note Orthopedic Surgery Subjective 02/12/2023 L3-L5 Decompression with Instrumented Fusion 04/29/23 Doing well, wound healed, low back and radicular pain improved 02/12/2023 L3-L5 Decompression with Instrumented Fusion for spondylolisthesis and spinal stenosis 02/25/23 Doing well, lbp and radicular pain improving Patient History Past Surgical History: Procedure Laterality Date CARDIAC CATHETERIZATION CHOLECYSTECTOMY COLONOSCOPY CYSTOSCOPY URETHRAL DILATION GASTRIC BYPASS HERNIA REPAIR KNEE ARTHROPLASTY Left LITHOTRIPSY x3 LIVER BIOPSY PELVIC LAPAROSCOPY LAPAROSCOPY TIMES 3 UPPER GASTROINTESTINAL ENDOSCOPY Past Medical History: Diagnosis Date Allergic rhinitis Anemia Asthma Depression Diabetes (CMS/HCC) GERD (gastroesophageal reflux disease) Hepatic steatosis HL (hearing loss) Hyperlipidemia Hypertension Kidney stones Obesity PONV (postoperative nausea and vomiting) Pulmonary nodule RLL Sleep apnea Spondylolisthesis of lumbar region Objective Exam: - Incision healed - Limited lumbar spine ROM, no swelling, and no tenderness - Sensation intact - Motor 5/5 all simpson muscle groups Assessment/Plan Francisca Peterson is a 68 y.o. year old female s/p L3-L5 Decompression with Instrumented Fusion (02/12/2023) Recommend PT, continue with bone stimulator Follow up in 3 months [facility] 04-15-2023 Note Attestation signed by Ryan Tsai MD at 04/15/2023 12:13 PM I personally saw and examined the patient on the same date of service as resident/fellow Ha Gilliam. I discussed the findings and therapeutic plan with the resident/fellow Ha Gilliam. I agree with the documentation, except for any edits/updates below. Teaching Physician's Revisions: Ryan Tsai Orthopedic Surgery Subjective 02/12/2023 L3-L5 Decompression with Instrumented Fusion 04/15/23 Francisca is a 68-year-old female returning to clinic for continued concern for her surgical wound dehiscence. She reports several days of fevers and chills over the last week which is now resolved. She reports an ongoing feeling of malaise and is concerned that she may have a complication with her surgical wound. Denies any substantial drainage from the wound, And she completed her course of doxycycline this past Thursday. 04/08/2023 Francisca Is a 68-year-old female returning to clinic for ongoing wound care for superficial surgical site dehiscence. Nora remains in good functioning condition with no appreciable output in the canister. Denies any numbness, fevers, chills, nausea, vomiting. Reports that she has 5 additional days doxycycline left. 04/01/2023 Patient doing well today. Daughter adjusted vac and stopped beeping. Minimal output in canister but substantial in sponge. She denies any new onset weakness, numbness, tingling. She denies any fevers, chills, chest pain or shortness of breath/lung symptoms. 03/25/23 Patient states that previous wound vac was tough on her skin and she had a small eschar on buttocks, trimmed tegaderm and this has improved. She is out of doxycycline and had output from drain past 3 days. She denies any new onset weakness, numbness, tingling. She denies any fevers, chills, chest pain or shortness of breath/lung symptoms. 03/18/23 Patient tolerated Nora well. She feels she has been doing most things and being compliant with restrictions. She denies any new onset weakness, numbness, tingling. She denies any fevers, chills, chest pain or shortness of breath/lung symptoms. 03/11/23 Wound dehisced about a week ago. Patient has had significant amounts of serous discharge. She had 1 episode of fevers last Thursday lasting for a day. This is an isolated event and has been afebrile last week. She denies any additional fevers Chills chest pain shortness of breath nausea vomiting additional systemic symptoms. Patient History Past Surgical History: Procedure Laterality Date CARDIAC CATHETERIZATION CHOLECYSTECTOMY COLONOSCOPY CYSTOSCOPY URETHRAL DILATION GASTRIC BYPASS HERNIA REPAIR KNEE ARTHROPLASTY Left LITHOTRIPSY x3 LIVER BIOPSY PELVIC LAPAROSCOPY LAPAROSCOPY TIMES 3 UPPER GASTROINTESTINAL ENDOSCOPY Past Medical History: Diagnosis Date Allergic rhinitis Anemia Asthma Depression Diabetes (CMS/HCC) GERD (gastroesophageal reflux disease) Hepatic steatosis HL (hearing loss) Hyperlipidemia Hypertension Kidney stones Obesity PONV (postoperative nausea and vomiting) Pulmonary nodule RLL Sleep apnea Spondylolisthesis of lumbar region Objective Exam: -Interval healing of surgical wound without any appreciable continued opening. No surrounding erythema, endurance. No drainage. - Limited lumbar spine ROM, no swelling, and no tenderness - Sensation intact - Motor 5/5 all simpson muscle groups Assessment/Plan Francisca Peterson is a 67 y.o. year old female s/p L3-L5 Decompression with Instrumented Fusion (02/12/2023) At this time, no concern for acute infection of her lumbar wound. She does not need to keep this covered any longer. We would like to investigate her feelings of ongoing malaise with a UA, ESR, CRP. We will have her follow-up in approximately 10 days and we will call her if any of these lab results come back abnormal. Ha Gilliam MD Orthopedic surgery resident, PGY 5 By using the attestations below, the signing clinician agrees that I have read and verify that the documentation has been personally reviewed by me and ensure that the documentation accurately reflects the encounter. Office Visit Attestation GC: I personally saw this patient on the day of the encounter, performed the simpson portion(s) of the service and participated in the management and confirm the resident's documentation. Please note there may be an additional personal documentation from me. [facility] 04-08-2023 Note Attestation signed by Ryan Tsai MD at 04/08/2023 4:28 PM I personally saw and examined the patient on the same date of service as resident/fellow Ha Gilliam. I discussed the findings and therapeutic plan with the resident/fellow Ha Gilliam. I agree with the documentation, except for any edits/updates below. Teaching Physician's Revisions: Ryan Tsai Orthopedic Surgery Subjective 02/12/2023 L3-L5 Decompression with Instrumented Fusion 04/08/23 Francisca Is a 68-year-old female returning to clinic for ongoing wound care for superficial surgical site dehiscence. Nora remains in good functioning condition with no appreciable output in the canister. Denies any numbness, fevers, chills, nausea, vomiting. Reports that she has 5 additional days doxycycline left. 04/01/2023 Patient doing well today. Daughter adjusted vac and stopped beeping. Minimal output in canister but substantial in sponge. She denies any new onset weakness, numbness, tingling. She denies any fevers, chills, chest pain or shortness of breath/lung symptoms. 03/25/23 Patient states that previous wound vac was tough on her skin and she had a small eschar on buttocks, trimmed tegaderm and this has improved. She is out of doxycycline and had output from drain past 3 days. She denies any new onset weakness, numbness, tingling. She denies any fevers, chills, chest pain or shortness of breath/lung symptoms. 03/18/23 Patient tolerated Nora well. She feels she has been doing most things and being compliant with restrictions. She denies any new onset weakness, numbness, tingling. She denies any fevers, chills, chest pain or shortness of breath/lung symptoms. 03/11/23 Wound dehisced about a week ago. Patient has had significant amounts of serous discharge. She had 1 episode of fevers last Thursday lasting for a day. This is an isolated event and has been afebrile last week. She denies any additional fevers Chills chest pain shortness of breath nausea vomiting additional systemic symptoms. Patient History Past Surgical History: Procedure Laterality Date CARDIAC CATHETERIZATION CHOLECYSTECTOMY COLONOSCOPY CYSTOSCOPY URETHRAL DILATION GASTRIC BYPASS HERNIA REPAIR KNEE ARTHROPLASTY Left LITHOTRIPSY x3 LIVER BIOPSY PELVIC LAPAROSCOPY LAPAROSCOPY TIMES 3 UPPER GASTROINTESTINAL ENDOSCOPY Past Medical History: Diagnosis Date Allergic rhinitis Anemia Asthma Depression Diabetes (CMS/HCC) GERD (gastroesophageal reflux disease) Hepatic steatosis HL (hearing loss) Hyperlipidemia Hypertension Kidney stones Obesity PONV (postoperative nausea and vomiting) Pulmonary nodule RLL Sleep apnea Spondylolisthesis of lumbar region Objective Exam: -Improving appearance of wound proximally and distally with only a pinpoint open proximally and approximately 2 cm open distally. No appreciable drainage at this time - Limited lumbar spine ROM, no swelling, and no tenderness - Sensation intact - Motor 5/5 all simpson muscle groups Assessment/Plan Francisca Peterson is a 67 y.o. year old female s/p L3-L5 Decompression with Instrumented Fusion (02/12/2023) At this point, we feel that we may discontinue the Prevena. Wound reinforced with Steri-Strips and covered with gauze and Tegaderm Change Tegaderm if necessary, otherwise keep dressing clean dry and intact until follow-up Complete doxycycline as ordered Return to clinic 1 week Ha Gilliam MD Orthopedic surgery resident, PGY 5 By using the attestations below, the signing clinician agrees that I have read and verify that the documentation has been personally reviewed by me and ensure that the documentation accurately reflects the encounter. Office Visit Attestation GC: I personally saw this patient on the day of the encounter, performed the simpson portion(s) of the service and participated in the management and confirm the resident's documentation. Please note there may be an additional personal documentation from me. [facility] 06-02-2022 Hospital Discharge instructions Patient Education 06/02/2022 11:52:01 Kidney Stones, [id number] Kidney Stones Kidney stones are rock-like masses that form inside of the kidneys. Kidneys are organs that make pee (urine). A kidney stone may move into other parts of the urinary tract, including: The tubes that connect the kidneys to the bladder (ureters). The bladder. The tube that carries urine out of the body (urethra). Kidney stones can cause very bad pain and can block the flow of pee. The stone usually leaves your body (passes) through your pee. You may need to have a doctor take out the stone. What are the causes? Kidney stones may be caused by: A condition in which certain glands make too much parathyroid hormone (primary hyperparathyroidism). A buildup of a type of crystals in the bladder made of a chemical called uric acid. The body makes uric acid when you eat certain foods. Narrowing (stricture) of one or both of the ureters. A kidney blockage that you were born with. Past surgery on the kidney or the ureters, such as gastric bypass surgery. What increases the risk? You are more likely to develop this condition if: You have had a kidney stone in the past. You have a family history of kidney stones. You do not drink enough water. You eat a diet that is high in protein, salt (sodium), or sugar. You are overweight or very overweight (obese). What are the signs or symptoms? Symptoms of a kidney stone may include: Pain in the side of the belly, right below the ribs (flank pain). Pain usually spreads (radiates) to the groin. Needing to pee often or right away (urgently). Pain when going pee (urinating). Blood in your pee (hematuria). Feeling like you may vomit (nauseous). Vomiting. Fever and chills. How is this treated? Treatment depends on the size, location, and makeup of the kidney stones. The stones will often pass out of the body through peeing. You may need to: Drink more fluid to help pass the stone. In some cases, you may be given fluids through an IV tube put into one of your veins at the hospital. Take medicine for pain. Make changes in your diet to help keep kidney stones from coming back. Sometimes, medical procedures are needed to remove a kidney stone. This may involve: A procedure to break up kidney stones using a beam of light (laser) or shock waves. Surgery to remove the kidney stones. Follow these instructions at home: Medicines Take kako-dzq-hdidbjz and prescription medicines only as told by your doctor. Ask your doctor if the medicine prescribed to you requires you to avoid driving or using heavy machinery. Eating and drinking Drink enough fluid to keep your pee pale yellow. You may be told to drink at least 8 10 glasses of water each day. This will help you pass the stone. If told by your doctor, change your diet. This may include: ?Limiting how much salt you eat. ?Eating more fruits and vegetables. ?Limiting how much meat, poultry, fish, and eggs you eat. Follow instructions from your doctor about eating or drinking restrictions. General instructions Collect pee samples as told by your doctor. You may need to collect a pee sample: ?24 hours after a stone comes out. ?8 12 weeks after a stone comes out, and every 6 12 months after that. Strain your pee every time you pee (urinate), for as long as told. Use the strainer that your doctor recommends. Do not throw out the stone. Keep it so that it can be tested by your doctor. Keep all follow-up visits as told by your doctor. This is important. You may need follow-up tests. How is this prevented? To prevent another kidney stone: Drink enough fluid to keep your pee pale yellow. This is the best way to prevent kidney stones. Eat healthy foods. Avoid certain foods as told by your doctor. You may be told to eat less protein. Stay at a healthy weight. Where to find more information National Kidney Foundation (NKF): www.kidney.org [facility] (UCF): www.urologyhealth.org Contact a doctor if: You have pain that gets worse or does not get better with medicine. Get help right away if: You have a fever or chills. You get very bad pain. You get new pain in your belly (abdomen). You pass out (faint). You cannot pee. Summary Kidney stones are rock-like masses that form inside of the kidneys. Kidney stones can cause very bad pain and can block the flow of pee. The stones will often pass out of the body through peeing. Drink enough fluid to keep your pee pale yellow. This information is not intended to replace advice given to you by your health care provider. Make sure you discuss any questions you have with your health care provider. Document Released: 01/19/2009 Document Revised: 12/20/2019 Document Reviewed: 12/20/2019 [employer] Patient Education 2020 [employer]. Follow Up Care 04/29/2021 11:55:00 With:MALENA MONGE, Martin Singh, URL Address: [facility] [address] , [place] [address]- [phone] When:06/02/2023 Comments:KARINA [facility] 03-07-2021 Note Admission Informatio n Admitted for DJD of left knee Hospital Course Patient was taken to surgery, left total knee was preformed, post-op was stable, up in garibay, neg Homans Significant Findings DJD left knee Medications Home B-Complex SR, 1 tabs, Oral, Daily biotin 5000 mcg oral capsule, 1 caps, Oral, BID Centrum Chewables Adults, 1 tabs, Chewed, Daily Citracal + D, 1 tabs, Oral, BID Flonase 50 mcg/inh nasal spray, 1 sprays, Nasal, Daily, PRN FLUoxetine 20 mg oral capsule, 20 mg= 1 caps, Oral, qAM HumaLOG KwikPen 100 units/mL injectable solution, 12 units, Subcutaneous, qAM HumaLOG KwikPen 100 units/mL injectable solution, 15 units, Subcutaneous, Daily HumaLOG KwikPen 100 units/mL injectable solution, 18 units, Subcutaneous, qPM HumaLOG KwikPen 100 units/mL injectable solution, See Instructions hydroCHLOROthiazide 25 mg oral tablet, 25 mg= 1 tabs, Oral, qAM Januvia 100 mg oral tablet, 100 mg= 1 tabs, Oral, qAM Lantus Solostar Pen 100 units/mL subcutaneous solution, 51 units, Subcutaneous, HS (at bedtime) losartan 50 mg oral tablet, 50 mg= 1 tabs, Oral, qAM Mag-Ox 400, 400 mg, Oral, BID Nature's Bounty Red Krill Oil, 500 mg, Oral, HS (at bedtime) Osteo Bi-Flex Triple Strength, 1 caps, Oral, BID potassium citrate 15 mEq oral tablet, extended release, 30 mEq= 2 tabs, Oral, BID simvastatin 40 mg oral tablet, 40 mg= 1 tabs, Oral, HS (at bedtime) ZyrTEC 10 mg oral tablet, 10 mg= 1 tabs, Oral, Daily Prescriptions Mcalester 5 mg-325 mg oral tablet, 1 tabs, Oral, q6hr, PRN Xarelto 10 mg oral tablet, 10 mg= 1 tabs, Oral, Daily Procedures and Treatment Provided left total knee Physical Exam Vitals & Measurements T: 36.5 ?C (Oral) HR: 76 (Peripheral) RR: 18 BP: 107/71 SpO2: 94% HT: 167.64 cm HT: 167 cm WT: 127.8 kg BMI: 45.35 BMI: 45.7 Additional Vitals No qualifying data available. Discharge Plan 1. HTN (hypertension) 2. High cholesterol 3. Diabetes 4. Left knee pain 5. Arthritis of left knee Ordered: hydrocodone-acetaminophen, 1 tabs, Oral, q6hr, PRN, May take 1-2 tabs po q6, X 7 days, # 30 tabs, 0 Refill(s), 03/14/21 9:07:00 EDT 6. Asthma 7. Obesity Orders: acetaminophen, 650 mg, Oral, Tab, QID, First Dose: 03/06/21 17:00:00 EDT, Dispense From Location: [id number], 03/06/21 15:15:00 EDT acetaminophen, 650 mg, Oral, Tab, q4hr, PRN fever, First Dose: 03/06/21 15:15:00 EDT, Dispense From Location: [id number], 03/06/21 15:15:00 EDT bisacodyl, 10 mg, Rectal, Supp, Daily, PRN constipation, First Dose: 03/06/21 15:15:00 EDT, Dispense From Location: [id number], 03/06/21 15:15:00 EDT ceFAZolin, 1 g, IV Piggyback, Powder-Inj, q8hr for 3 doses, infuse over 0.5 hr, First Dose: 03/06/21 19:00:00 EDT, Stop Date: 03/07/21 18:59:00 EDT, [facility] Prophylaxis- Pre/Post-Op, 03/06/21 15:15:00 EDT cetirizine, 10 mg, Oral, Tab, Daily, First Dose: 03/07/21 9:00:00 EDT, Dispense From Location: [employer] 03/06/21 13:26:00 EDT Dextrose 10% in Water, 125 mL, IV Piggyback, Soln-IV, As Indicated for 20 doses, PRN other (see comment), infuse over 0.3 hr, First Dose: 03/06/21 13:02:00 EDT, Stop Date: Limited # of times, Dispense From Location: [id number], 03/06/21 13:02:00 EDT Dextrose 5% in Lactated Ringers Injection 1,000 mL, 1,000 mL, Soln-IV, IV, 80 mL/hr, Start Date: 03/06/21 15:15:00 EDT, Dispense From Location: [facility], 03/06/21 15:15:00 EDT docusate, 100 mg, Oral, Cap, BID, First Dose: 03/06/21 21:00:00 EDT, Dispense From Location: [address], 03/06/21 15:15:00 EDT FLUoxetine, 20 mg, Oral, Cap, qAM, First Dose: 03/07/21 9:00:00 EDT, Dispense From Location: [address], 03/06/21 13:26:00 EDT fluticasone nasal, 1 sprays, Nasal, [place], Daily, First Dose: 03/07/21 9:00:00 EDT, Dispense From Location: [facility], 03/06/21 12:56:00 EDT glucagon, 1 mg, Subcutaneous, Injection, As Indicated for 20 doses, PRN other (see comment), First Dose: 03/06/21 13:32:00 EDT, Stop Date: Limited # of times, Dispense From Location: [facility], 03/06/21 13:32:00 EDT hydroCHLOROthiazide, 25 mg, Oral, Tab, qAM, First Dose: 03/07/21 9:00:00 EDT, Dispense From Location: [address], 03/06/21 13:26:00 EDT hydrocodone-acetaminophen, 2 tabs, Oral, Tab, q4hr, PRN severe pain [7-10 on pain scale], First Dose: 03/06/21 14:45:00 EDT, Dispense From Location: [address], 03/06/21 14:45:00 EDT hydrocodone-acetaminophen, 1 tabs, Oral, Tab, q4hr, PRN moderate pain [4-6 on pain scale], First Dose: 03/06/21 14:45:00 EDT, Dispense From Location: [address], 03/06/21 14:45:00 EDT HYDROmorphone, 0.5 mg, IV Push, Injection, q3hr, PRN breakthrough pain, First Dose: 03/06/21 14:45:00 EDT, Dispense From Location: [id number], 03/06/21 14:45:00 EDT insulin aspart, sliding scale, Subcutaneous, Injection, AC, First Dose: 03/06/21 16:30:00 EDT, 03/06/21 17:49:00 EDT insulin aspart, 12 units, Subcutaneous, Injection, qAM, First Dose: 03/07/21 7:30:00 EDT, 03/06/21 17:49:00 EDT insulin (more content not included)... [facility] 03-06-2021 Note Chief Complaint Left knee arthritis Reason for Consultation Medical management of diabetes mellitus type II, hypertension, and hyperlipidemia History of Present Illness Ms. Peterson is a 65-year-old female with a past medical history of diabetes mellitus type 2 requiring insulin, asthma, hyperlipidemia, hypertension, and arthritis who is s/p elective left total knee arthroplasty with Dr. Martinez on 03/06/2021. She reports she takes her medications daily at home. The Hospitalist service was consulted for medical management. Review of Systems Constitutional: No fevers, chills, sweats. No excessive thirst or hunger. Denies appetite change, weight loss or weight gain Eyes: No visual change, eye drainage ENMT: No hearing changes, ear pain, nasal congestion, sore throat, URI sx Respiratory: No shortness of breath at rest or exertion. No cough, sputum, hemoptysis CV: No chest pain, palpitations, syncope. No orthopnea, PND. No lower extremity edema GI: No nausea, vomiting, diarrhea, constipation, blood in stool, abdominal pain : No decrease in urine, dysuria, hematuria, yeast MS: Left knee pain. No back or neck pain Skin: No rash, pruritus, abrasions Psychiatric: No anxiety, depression Physical Exam Vitals & Measurements T: 37 ?C (Oral) TMIN: 36.3 ?C (Temporal Artery) TMAX: 37.1 ?C (Oral) HR: 89 (Monitored) RR: 18 BP: 93/47 SpO2: 95% HT: 167.64 cm HT: 167 cm WT: 127.45 kg WT: 127.45 kg (Dosing) BMI: 45.35 BMI: 45.7 Physical Exam General: Alert oriented x3, in no apparent distress Eye: Normal conjunctiva, no scleral icterus, PERRL, EOMI l HENT: Normocephalic, moist oral mucosa Neck: Supple, non-tender, no lymphadenopathy Lungs: Clear to auscultation bilaterally. Regular, easy, unlabored respirations on room air Heart: S1-S2, normal rate, regular rhythm. No rubs, gallops, or murmurs. Pulses 2/2. No edema Abdomen: Soft, non-tender, non-distended, normal bowel sounds, no masses. LBM: 03/05 Extremities: No cyanosis or clubbing. L knee with surgical dressing intact, Hemovac in place with serosanguineous drainage, LLE capillary refill < 3 seconds Skin: No open sores or wounds Neurologic: Awake, alert, and oriented X3, no focal deficits Psychiatric: Calm and cooperative Assessment/Plan Left knee arthritis s/p left total knee arthroplasty Diabetes mellitus, type II requiring insulin Hypertension Hyperlipidemia Asthma -Check BMP -HgbA1c 6.3 01/2021 -POC glucose monitoring, continue home insulin regimen -insulin aspart 12u breakfast, 15u lunch, 15u HS -Levemir 51u HS -Resume home Januvia at discharge -Continue home HCTZ 25mg daily, losartan 50mg daily, simvastatin 40mg HS -Postoperative pain management and VTE prophylaxis per primary -Discharge planning per primary Problem List/Past Medical History Ongoing Arthritis of left knee Asthma Depression Diabetes Gastric ulcer High cholesterol History of kidney stones HTN (hypertension) Left knee pain Lung nodule Obesity PONV (postoperative nausea and vomiting) Positive H. pylori test Seasonal allergies Historical No qualifying data Procedure/Surgical History Bilateral wedge resection of ovary ESWL of kidney Laparoscopic cholecystectomy Laparoscopy Arthroplasty Knee Total Replacement-MIS (Left) (03/06/2021) Medications Inpatient acetaminophen, 650 mg, Oral, QID acetaminophen, 650 mg, Oral, q4hr, PRN bisacodyl, 10 mg= 1 supp, Rectal, Daily, PRN ceFAZolin Colace, 100 mg, Oral, BID Dextrose 10% in Water IV Piggyback, 125 mL, IV Piggyback, As Indicated, PRN Dextrose 5% in Lactated Ringers Injection 1,000 mL, 1000 mL, IV Fleet Enema 7 g-19 g rectal enema, 133 mL, Rectal, Daily, PRN Flonase 50 mcg/inh nasal spray, 50 mcg= 1 sprays, Nasal, Daily FLUoxetine, 20 mg, Oral, qAM glucagon, 1 mg, Subcutaneous, As Indicated, PRN hydroCHLOROthiazide, 25 mg, Oral, qAM hydrocodone-acetaminophen 5 mg-325 mg oral tablet, 1 tabs, Oral, q4hr, PRN hydrocodone-acetaminophen 5 mg-325 mg oral tablet, 2 tabs, Oral, q4hr, PRN HYDROmorphone, 0.5 mg= 0.5 mL, IV Push, q3hr, PRN Levemir, 51 units, Subcutaneous, HS (at bedtime) losartan, 50 mg, Oral, qAM Mag-Ox 400, 400 mg, Oral, BID magnesium hydroxide 8% oral suspension, 30 mL, Oral, Once, PRN multivitamin with minerals, 1 tabs, Oral, HS (at bedtime) Normal Saline Flush 0.9% injectable solution, 10 mL, IV Push, Once, PRN NovoLOG, sliding scale, Subcutaneous, AC NovoLOG, 12 units, Subcutaneous, qAM NovoLOG, 15 units, Subcutaneous, Daily NovoLOG, 18 units, Subcutaneous, qPM omeprazole, 20 mg, Oral, BID potassium citrate, 30 mEq, Oral, BID rivaroxaban, 10 mg, Oral, Daily simvastatin, 40 mg, Oral, HS (at bedtime) Zofran, 4 mg= 2 mL, IV Push, q6hr, PRN ZyrTEC, 10 mg, Oral, Daily Home B-Complex SR, 1 tabs, Oral, Daily biotin 5000 mcg oral capsule, 1 caps, Oral, BID Centrum Chewables Adults, 1 tabs, Chewed, Daily Citracal + D, 1 tabs, Oral, BID Flonase 50 mcg/in (more content not included)... [facility] Evaluation + Plan note Future Appointments Appointment Date:06/05/2023 09:30:00 AM Scheduled Provider:Martin ALEMAN MD Location:[facility] Appointment Type:URO Office Visit [facility] Evaluation + Plan note Future Appointments Appointment Date:06/03/2024 09:45:00 AM Scheduled Provider:Martin ALEMAN MD Location:[facility] Appointment Type:URO Office Visit [facility] Evaluation note Diagnosis Lipoma of breast- Primary Lipoma of other specified sites Mass of right breast, unspecified quadrant Other signs and symptoms in breast [facility] N[facility]ative No data available for this section [facility] InstructionsNot on filedocumented in this encounter [facility] No data available for this section [facility] Summary Purpose Family History No Family History Records FoundNo Family History Records Found No data available for this section No Family History Records FoundNo Family History Records FoundNo Family History Records FoundNo Family History Records Found Advance Directives No Advanced Directives Records FoundLatest Code Status on File Code Status Date Activated Date Inactivated Comments Full Code 11/27/2017 11:28 AM 11/28/2017 5:14 PM Additional Source Comments INFORMATION SOURCE (unrecogn ized section and content) DATE CREATED AUTHOR 03/09/2021 [facility] DATE CREATED AUTHOR AUTHOR'S ORGANIZ ATION 05/29/2021 [facility] DATE CREATED AUTHOR AUTHOR'S ORGANIZ ATION 06/03/2023 [facility] DATE CREATED AUTHOR AUTHOR'S ORGANIZ ATION 09/30/2023 [facility] DATE CREATED AUTHOR AUTHOR'S ORGANIZ ATION 10/16/2023 [facility] DATE CREATED AUTHOR AUTHOR'S ORGANIZ ATION 04/01/2024 [facility] Patient Care team informatio n (unrecognized section and content) 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 [employer] Relationship Specialty Start Date End Date Dary Puente MD [address] [place] [address] PCP - General Family Medicine 08/19/18 Reason for Visit (unrecogniz ed section and content) Reason Comments New Patient Specialty Diagnoses / Procedures Referred By Leigha meza Referred To Contact Breast Surgery Diagnoses Mass of right breast, unspecified quadrant Sancho, Sarah, [place] INTERN-CMA [address] [place] [address] [facility] [address] [place] [address] Referral ID Status Reason Start Date Expiration Date V isits Requested Visits Authorized [id number] Pending Review 09/16/2023 09/15/2024 1 1 FOR RECORDS PERTAINING TO PATIENTS WHO ARE OR HAVE BEEN ENROLLED IN A CHEMICAL DEPENDENCY/SUBSTANCEABUSE PROGRAM, SOME INFORMATION MAY BE OMITTED. This clinical summary was aggregated from multiple sources. Caution should be exercised in using it in the provision of clinical care. This summary normalizes information from multiple sources, and as a consequence, information in this document may materially change the coding, format and clinical context of patient data. In addition, data may be omitted in some cases. CLINICAL DECISIONS SHOULD BE BASED ON THE PRIMARY CLINICAL RECORDS. [employer] provides no warranty or guarantee of the accuracy or completeness of information in this document.
[2024-04-23 13:13] LABS: Lactate/Lactic Acid 1.3 mmol/L (0.4-2.0)
[2024-04-23 13:20] LABS: Alanine Aminotransferase 21 U/L (14-59); Albumin Globulin Ratio 0.6; Albumin Level 2.4 g/dL (3.4-5.0); Alkaline Phosphatase 116 U/L (46-116); Anion Gap 9.4; Aspartate Amino Transferase 19 U/L (15-37); BUN Creatinine Ratio 16.5; Bilirubin Total 0.5 mg/dL (0.2-1.0); Calcium 8.5 mg/dL (8.5-10.1); Carbon Dioxide 28.2 mmol/L (21.0-32.0); Chloride 98 mmol/L (98-107); Estimated GFR (African America >60 (>=60); Estimated GFR (Non-African Ame 53 (>=60); Globulin 4.1 g/dL; Glucose 203 mg/dL (74-106); Potassium 3.6 mmol/L (3.5-5.1); Sodium 132 mmol/L (136-145); Total Protein 6.5 g/dL (6.4-8.2); Troponin I High Sensitivity 12.9 pg/mL (4.0-51.3)
--- NOTE | 2024-04-23 13:30 | CT_ITS ---
The [address] [address] Patient Name: JAMES AYALA MRN: [facility]:[id number] date: 1955 Sex: F Assigned Patient Location: ER Current Patient Location: ER Accession/Order Number: [id number] Exam Date: 04/23/2024 14:17 Report Date: 04/23/2024 15:47 At the request of: DARYN CERON Procedure: CT abdomen pelvis w con EXAM: CT abdomen pelvis w con HISTORY: severe back pain , hx of positive bld culture COMPARISON: CT from April 17, 2024 TECHNIQUE: Postcontrast axial CT images through the abdomen and pelvis were obtained with coronal and sagittal reformats. Dose reduction techniques were achieved by using automated exposure control and/or adjustment of mA and/or kV according to patient size and/or use of iterative reconstruction technique. FINDINGS: A solid nodule in the right lower lobe that was previously seen, is only partially within the field of view. Refer to prior recent CT for further details. Abdomen: The liver and spleen are unremarkable. There is no intra or extrahepatic biliary duct dilatation. Cholecystectomy. There are nonobstructive right renal calculi measuring up to 2 mm. No ureteral calculus is seen. There is normal and symmetric renal enhancement. There are a few, scattered tiny renal cysts. There is a large colonic stool burden. No evidence for appendicitis. There is colonic diverticulosis without evidence of acute inflammation. There are postsurgical changes of a gastric bypass. Otherwise, the pancreas, adrenal glands, and bowel loops, are unremarkable. There is no mesenteric or retroperitoneal lymphadenopathy. Pelvis: The bladder appears unremarkable. The rectum is unremarkable. There is no iliac or inguinal lymphadenopathy. The uterus is present. The left ovary appears within normal limits by CT. The right ovary is not clearly seen. There is mild atherosclerotic disease. Bone windows show no aggressive osseous lesions. There are postsurgical changes of L3-L5 posterior spinal fusion. There is thin lucency about the L5 screws. Unchanged chronic appearing compression deformity of the L1 vertebral body. CT/CT abdomen pelvis w con IMPRESSION: 1. No acute findings in the abdomen or pelvis. Nonobstructive right renal calculi are again seen. Normal renal enhancement. 2. There is a large colonic stool burden suggesting constipation. Electronically authenticated by: ANALI TRINH Date: 04/23/2024 15:47
[2024-04-23 13:46] LABS: Lymphocytes Absolute Manual 0.58 10^3/uL (1.20-3.80); Monocytes Absolute Manual 0.58 10^3/uL (0.30-0.80); Segmented Neut Absolute Manual 5.33 10^3/uL (1.4-6.5)
[2024-04-23 14:13] LABS: Bilirubin Urine NEGATIVE (NEGATIVE); Blood Urine NEGATIVE (NEGATIVE); Clarity Urine CLEAR (CLEAR); Color Urine DK. YELLOW (YELLOW); Glucose Urine UA NEGATIVE (NEGATIVE); Ketones Urine 15 mg/dL (NEGATIVE); Leukocyte Esterase Urine NEGATIVE (NEGATIVE); Nitrite Urine NEGATIVE (NEGATIVE); Protein Urine TRACE mg/dL (NEG/TRACE); Urobilinogen Urine 0.2 EU/dL (0.2-1.0)
[2024-04-23 14:17] LABS: Urine Microscopic Indicated NO
[2024-04-23] MEDS: HYDROMORPHONE HCL 0.5 MG/0.5 ML SYRINGE IV (14:57)
--- NOTE | 2024-04-23 16:08 | ED_ITS ---
HPI HPI - General Adult General Chief complaint: Urogenital-Female Stated complaint: LOWER BACK PAIN Time Seen by Provider: 04/23/24 12:28 Source: patient and family Mode of arrival: Wheelchair Limitations: no limitations History of Present Illness HPI narrative: The patient is coming to us with a back pain that for the last 10 days got worse, he mentioned that initially she was here almost at the beginning of the month when she was diagnosed with a right-sided kidney stone, patient mentioned that she after she got discharged was on vacation in [place] and at that time she also had severe pain Her sister at the bedside mentioned that she has been having some episodes of confusion and also has been having decreased p.o. intake and severe pain in her back, they were called according to the sister from [facility] and told that she have a positive blood culture and she need to go to the nearest ER The patient came back to us today for that she still having back pain that she gave 10 out of 10 and is not controlled with the p.o. medication She has decreased p.o. intake no fever no chills and she has been taking Keflex after she was diagnosed with urine infection Related Data Home Medications ?Medication ?Instructions ?Recorded ?Confirmed cetirizine 10 mg tablet (24Hour 10 mg PO DAILY 04/17/24 04/17/24 Allergy) losartan 100 mg tablet 100 mg PO DAILY 04/17/24 04/17/24 omeprazole 20 mg capsule,delayed 20 mg PO DAILY 04/17/24 04/17/24 release potassium bicarbonate-citric acid 25 meq PO BID 04/17/24 04/17/24 25 mEq effervescent tablet (Klor-Con/EF) Allergies Allergy/AdvReac Type Severity Reaction Status Date / Time Sulfa (Sulfonamide Allergy Rash Verified 04/17/24 03:28 Antibiotics) codeine AdvReac Nausea Verified 04/17/24 03:28 Opioid HPI Opioid Management Most Recent Opioid Data: Last Pain Scale 8 04/23/24 14:57 Last ED Pain Assessment 04/17/24 04:57 Last MAR Pain Assessment 04/23/24 14:57 Review of Systems ROS Status of ROS 10 or more systems reviewed and unremark able except as noted in history and below [facility] Medical History (Updated 04/23/24 @ 16:11 by Alicja Cuevas MD) HTN (hypertension) ?I10 - Essential (primary) hypertension (ICD-10) Surgical History (Updated 04/17/24 @ 03:34 by Krystal Molina) Bariatric surgery status ?Z98.84 - Bariatric surgery status (ICD-10) Social History Little interest or pleasure in doing things: not at all Feeling down, depressed, or hopeless: not at all Exam Narrative Exam Narrative: Nurses notes and vital signs reviewed and patient is not hypoxic. General: Well-appearing and in no apparent distress. Skin: Warm, dry, no pallor noted. No rash. Head: Normocephalic, atraumatic. Neck: Supple, non-tender. Eye: Pupils are equal, round and EOMI. No scleral icterus. Ears, Nose, Mouth, and Throat: TM are clear, no nasal mucosal hypertrophy. Oral mucosa is moist, no posterior oropharynx erythema, uvula is mid-line Cardiovascular: Regular Rate and Rhythm without murmur, gallop or rub. Respiratory: No accessory muscle use or respiratory distress. Lungs are clear to auscultation, no wheezing, rales or rhonchi Chest Wall: no tenderness Back: No midline thoracic ,the patient have paraspinal muscle tenderness over the lower lumbar level no CVA tenderness Musculoskeletal: normal ROM, no calf or popliteal tenderness, no lower extremity edema/swelling GI: Abdomen is soft, non-distended. Normal bowel sounds. No masses appreciated. No tenderness to palpation. No rebound, guarding, or rigidity noted. Neurological: A&O x4. No cranial nerve dysfunction observed. No truncal ataxia. Moves all extremities. Sensation intact. Psychiatric: Cooperative and interactive. Normal mood and affect. Constitutional Vital Signs, click to edit/add: Last Vital Signs Temp 97.8 F 04/23/24 12:20 Pulse 66 04/23/24 15:01 Resp 14 04/23/24 15:01 BP 116/73 04/23/24 15:01 Pulse Ox 98 04/23/24 15:01 O2 Del Method Room Air 04/23/24 12:20 Course Vital Signs Vital signs: Vital Signs Temperature 97.8 F 04/23/24 12:20 Pulse Rate 79 04/23/24 12:20 Respiratory Rate 18 04/23/24 12:20 Blood Pressure 101/54 04/23/24 12:20 Pulse Oximetry 95 04/23/24 12:20 Oxygen Delivery Method Room Air 04/23/24 12:20 Temperature 97.8 F 04/23/24 12:20 Pulse Rate 66 04/23/24 15:01 Respiratory Rate 14 04/23/24 15:01 Blood Pressure 116/73 04/23/24 15:01 Pulse Oximetry 98 04/23/24 15:01 Oxygen Delivery Method Room Air 04/23/24 12:20 Medical Decision Making MDM Narrative Medical decision making narrative: The patient CBC and chemistry showed no acute significant pathology with the urine showing some ketones CAT scan of the abdomen pelvis obtained with contrast this time because the patient history of instruments in her lumbar level and the fact that positive blood culture could be obtained due to infection At the moment the patient is oriented x 4 and according to her sister she has been having some confusion which could be secondary to dementia and also could be secondary to infection although the patient right now does not have any signs of infection her blood workup The patient need further pain management as she was treated in the ER with Toradol morphine and Dilaudid to control her pain Patient will be admitted for pain control and her case was discussed with Dr. Quiñonez who agreed on admitting the patient Lab Data Labs: Lab Results 04/23/24 04/23/24 Range/Units 12:35 13:40 WBC 6.5 (4.0-11.0) 10^3/uL RBC 3.81 L (4.20-5.40) 10^6/uL Hgb 10.7 L (12.0-16.0) g/dL Hct 33.8 L (36.0-48.0) % MCV 88.7 (81.0-99.0) fL MCH 28.1 (26.7-34.0) pg MCHC 31.7 (29.9-35.2) g/dL RDW 13.6 (11.0-15.0) % Plt Count 219 (150-450) 10^3/uL MPV 10.5 (9.5-13.5) fL Seg Neuts % (Manual) 82.0 H (43.0-75.0) Lymphocytes % (Manual) 9.0 L (20.5-60.0) % Monocytes % (Manual) 9.0 (1.7-12.0) % Eosinophils % (Manual) 0.0 L (0.9-7.0) % Basophils % (Manual) 0.0 L (0.2-2.0) % Neutrophils # (Manual) 5.33 (1.4-6.5) 10^3/uL Lymphocytes # (Manual) 0.58 L (1.20-3.80) 10^3/uL Monocytes # (Manual) 0.58 (0.30-0.80) 10^3/uL Eosinophils # (Manual) 0.00 (0.00-0.70) 10^3/uL Basophils # (Manual) 0.00 (0.00-0.10) 10^3/uL Sodium 132 L (136-145) mmol/L Potassium 3.6 (3.5-5.1) mmol/L Chloride 98 (98-107) mmol/L Carbon Dioxide 28.2 (21.0-32.0) mmol/L Anion Gap 9.4 BUN 17.0 (7.0-18.0) mg/dL Creatinine 1.03 H (0.55-1.02) mg/dL Est GFR ( Amer) >60 (>=60) Est GFR (Non-Af Amer) 53 L (>=60) BUN/Creatinine Ratio 16.5 Glucose 203 H (74-106) mg/dL Lactate 1.3 (0.4-2.0) mmol/L Calcium 8.5 (8.5-10.1) mg/dL Total Bilirubin 0.5 (0.2-1.0) mg/dL AST 19 (15-37) U/L ALT 21 (14-59) U/L Alkaline Phosphatase 116 (46-116) U/L Troponin I High Sens 12.9 (4.0-51.3) pg/mL Total Protein 6.5 (6.4-8.2) g/dL Albumin 2.4 L (3.4-5.0) g/dL Globulin 4.1 g/dL Albumin/Globulin Ratio 0.6 Urine Color Dk. yellow (YELLOW) Urine Clarity Clear (CLEAR) Urine pH 6.0 (5.0-9.0) Ur Specific [place] 1.020 (1.005-1.025) Urine Protein Trace (NEG/TRACE) mg/dL Urine Glucose (UA) Negative (NEGATIVE) mg/dL Urine Ketones 15 A (NEGATIVE) mg/dL Urine Occult Blood Negative (NEGATIVE) Urine Nitrite Negative (NEGATIVE) Urine Bilirubin Negative (NEGATIVE) Urine Urobilinogen 0.2 (0.2-1.0) EU/dL Ur Leukocyte Esterase Negative (NEGATIVE) Discharge Plan Discharge Chief Complaint: Urogenital-Female Clinical Impression: Intractable back pain, Kidney calculi Patient Disposition: Admitted as Observation Time of Disposition Decision: 16:11
--- OUTSIDE RECORDS SUMMARY | 2024-04-23 16:59 | XMS_ITS | CCD ---
Author Organization [facility] CliniSyal Care Team Providers Care Magistrate Judge Name Role Phone MD NICOLAS MARTINEZ Admitting [...] Primary Care Unavailable JAYLYN RUIZ Attending Unavailable [facility] [place] [place] Primary Care Unavailable LAST TRUONG Consulting Unavailable JAYLYN RUIZ Admitting Unavailable JAYLYN RUIZ Consulting Unavailable PUENTE, DARY Farhad Primary Care Physician [phone] Martin ALEMAN Attending Unavailable YOUNG FONTAINE Attending [...] (1 source) NSAIDs; Translations: [NSAIDs] Drug Allergy [facility] Repository Opioid Agonists (1 source) Codeine; Translations: [codeine] Drug Allergy [facility] Repository Sulfamethoxazole / Trimethoprim (1 source) Sulfamethoxazole / Trimethoprim; Translations: [Bactrim] Drug Allergy [facility] Repository (4 sources) Codeine; Translations: [CODEINE] Drug Allergy 11-10-19 14 [facility] Repository (1 source) Sulfamethoxazole / Trimethoprim Drug Allergy 04-05-20 13 [facility] Repository (7 sources) nickel; Translations: [Nickel] Drug Allergy 10-29-19 22 Unknown (qualifier value), Itching [facility] (3 sources) Sulfonamides (Antibiotic); Translations: [sulfa drugs] Drug allergy Unknown (qualifier value) [facility] (2 sources) Sulfamethoxazole / Trimethoprim; Translations: [SULFAMETHOXAZOLE-T RIMETHOPRIM] Drug Allergy 02-20-20 17 [facility] Repository (4 sources) Sulfonamides (Antibiotic); Translations: [SULFA (SULFONAMIDE ANTIBIOTICS)] Propensity to adverse reactions to drug (disorder) 01-01-20 17 Hives, Rash [facility] Repository (1 source) Codeine Drug Allergy 11-27-19 18 Vomiting [facility] Medications Current Medications Medication Drug Class(es) Dates Sig (Normalized) Sig (Original) [id number] 200 actuat albuterol 0.09 mg/actuat metered dose [...] Ordered Start: 02-04-2022 take 1 capsule by [facility] once daily in the morning omeprazole (PriLOSEC) [...] BID, # 60 tab(s), Refills(s) 6, [id number], 167, cm, 06/02/22 11:47:00 EDT, Height/Length Dosing, [...] # 60 tab(s), Refills(s) 6, Pharmacy: [facility] #[id number], 167, cm, 06/02/22 11:47:00 EDT, Height/Length Dosing, [...] Arthritis 04-29-2021 Chronic Other aftercare (1 source) FDC (current) use of aspirin; Translations: [FDC CURRENT USE OF ASPIRIN] Onset: 05-28-2021 Episodic Other aftercare (1 source) 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; Translations: [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 DX] Onset: 05-28-2021 Episodic Other aftercare (1 source) Other emt intermediate (current) drug therapy; Translations: [OTH VEGETABLE I FARMWORKER CURRENT DRUG THERAPY] Onset: 05-28-2021 Episodic Other [...] Interpretation Reference Range Facility Follow-Upon 03-30-2024 Follow-Up [id number] Brian Peterson 1955 Provider Department Center 03/30/2024 RYAN STEVENS MP ORTHO MPORTHO No family history on file Level of Service:85457 ND OFFICE/OUTPATIENT ESTABLISHED LOW MDM 20 MIN (GC) Reason for Visit and Comments: Follow-up [[id number]] [facility] 36on 03-23-2024 36 Approving, but needs appt for additional refills. [facility] Refillon 03-23-2024 Refill [id number] Brian Peterson 1955 F Date Provider Department Center 03/23/2024 HILDAHIEURYAN MP ORTHO TALIBRTHO No family history on file Reason for Visit and Comments: Med Refill [[id number]] [facility] Follow-Upon 09-30-2023 Follow-Up [id number] Brian Peterson 1955 F Date Provider Department Center 09/30/2023 HILDA RYAN MP ORTHO MPORTHO No family history on file Level of Service:45849 ND OFFICE/OUTPATIENT ESTABLISHED [facility] 10 MIN Reason for Visit and Comments: Follow-up [[id number]] Normal [facility] MAMM DIAGNOSTIC UNILAT RT W CADon 09-29-2023 [...] AM 3 b US 6 MONTH Normal [facility] US BREAST RT LIMITEDon 09-29 US [...] AM 3 b US 6 MONTH Normal [facility] Ambulatory Visit Summaryon 1 Ambulatory Visit Summary FRANCISCA PETERSON :1955 Visit Date:06/02/2023 Ambulatory Visit Instructions Your Diagnosis Kidney stone Tests Performed Urnls Dip Stick Auto w/o Microscopy POC 70815 US Renal -- Results Pending -- XR [...] MONGE, Martin Singh Where: [facility] [place] Normal [facility] Patient Educationon 06-02-20 Patient Education Urology Kidney [...] these instructions at home: Medicines ? Take tyjs-kgo-ssxeian and prescription medicines only as told by [...] provider. Document Revised: 04/07/2022 Document Reviewed: 04/07/2022 [employer] Patient Education ? 2022 [employer]. [facility] Reminderson 06-02-2023 Reminders - From: Caroline Thompson To: GUERO Fontaine; Sent: 06/02/2023 14:58:54 EDT Show up: 05/03/2024 14:58:00 EDT Subject: KUB and JABIER prior to appt Reminder Message Please Remember to:_have pt complete JABIER and KUB prior to appt. Prefers TB. Normal [facility] Urology Office/Clinic Noteon 06-02-2023 Urology Office/Clinic Note [...] Contact Information ZHEN VIDAL, MCKENZIE Fisher, URL [address] [place] [address] [phone] Additional Instructions: 1 yr w/ KUB Patient Education Kidney Stones, [id number] Documentation recorded by the georgina Thompson accurately [...] Protein Urine Dipstick: Negative (06/02/23 14:06:00) Specific [place] Urine Dipstick: 1.020 (06/02/23 14:06:00) Urine Appearance Urine Dipstick: Clear (06/02/23 14:06:00) Urine Color Urine Dipstick: Yellow (06/02/23 14:06:00) Urobilinogen Urine Dipstick: Normal 0.2-1 EU/dl (06/02/23 14:06:00) pH Urine Dipstick: 6 (06/02/23 14:06:00) Normal [facility] Comment on above: Result Comment: Elec tronically Signed By: MCKENZIE FONTAINE PA-C\.br\Date and Time Signed: 06/02/23 17:02 EDT\.br\Electronically Co-Signed By: Caroline Thompson.br\Date and Time Co-Signed: 06/02/23 14:58 EDT RAD - MISCon 05-11-2023 RAD - MISC [id number] 022 [id number] :127 Normal [facility] Follow-Upon 04-29-2023 Follow-Up [id number] Brian Peterson estephania 1955 F Date Provider Department Center 04/29/2023 RYAN STEVENS MP ORTHO MPORTHO No family history on file Level of Service:59079 ND POSTOP FOLLOW UP VISIT RELATED TO ORIGINAL PX Reason for Visit and Comments: Follow-up [[id number]] Normal [facility] C-REACTIVE PROTEINon 023 C REACTIVE PROTEIN (MG/L) IN SER/PLAS 24.1 mg/L High 0.0-7.0 [facility] Comment on above: Performed By: #### L [id number] ####[facility] ([facility])[address] [place] [address] Labon 04-15-2023 Lab [id number] Brian Peterson estephania 1955 F Date Provider Department Center 04/15/2023 [id number] RESOURCE MP DRAW Medical Pavi No family history on file Normal [facility] Office Visiton 04-15-2023 Follow-up visit [id number] Brian Peterson estephania 1955 F Date Provider Department Center 04/15/2023 RYAN STEVENS ORTHO MPORTHO No family history on file Level of Service:53306 ND POSTOP FOLLOW UP VISIT RELATED TO ORIGINAL PX (GC) Reason for Visit and Comments: Follow-up [[id number]] - Requesting lab work, low grade temp Pain [136] - Requesting lab work, low grade temp Wound Check [[id number]] - Requesting lab work, low grade temp Normal [facility] SEDIMENTATION RATEon 023 SEDIMENTATION RATE, ERYTHROCYTE 50 mm/hr High <=20 [facility] Comment on above: Performed By: #### L [id number] #### [facility] ([facility]) [address] [place] [address] URINALYSIS MICROSCOPIC WITH REFLEX CULTUREon 04-15-2023 CALCIUM OXALATE CRYSTALS (#/HPF) IN URINE Many Abnormal None Seen [facility] Comment on above: Performed By: #### L [id number] ####[facility] ([facility])[address] [place] [address] CASTS IN URINE Present Abnormal None Seen [facility] Comment on above: Performed By: #### L [id number] ####[facility] [place] [address] CRYSTALS IN URINE Present Abnormal None Seen [facility] Comment on above: Performed By: #### L [id number] ####[facility] [place] [address] HYALINE CASTS /LPF IN URINE SEDIMENT BY MICROSCOPY 7 /LPF High <1 [facility] Comment on above: Performed By: #### L [id number] ####[facility] [place] [address] MUCUS (#/HPF) IN URINE SEDIMENT Many Abnormal None Seen, Occasional, Few [facility] Comment on above: Performed By: #### L [id number] ####[facility] ([facility])[address] [place] [address] OTHER MICROSCOPIC ELEMENTS Normal [facility] Comment on above: Performed By: #### L [id number] ####[facility] ([facility])[address] [place] [address] RBC (#/HPF) IN URINE SEDIMENT 0-2 Abnormal None Seen [facility] Comment on above: Performed By: #### L [id number] ####[facility] ([facility])[address] [place] [address] SQUAMOUS EPITHELIAL CELLS (#/HPF) IN URINE SEDIMENT Few Abnormal None Seen, Occasional [facility] Comment on above: Performed By: #### L [id number] ####[facility] ([facility])[address] [place] [address] WBC (LEUKOCYTE) (#/HPF) IN URINE SEDIMENT 3-5 Abnormal None Seen [facility] Comment on above: Performed By: #### L [id number] ####[facility] ([facility])[address] [place] [address] URINALYSIS WITH REFLEX CULTU REon 04-15-2023 BILIRUBIN, TOTAL PRESENCE IN URINE Negative Normal Negative [facility] Comment on above: Performed By: #### L [id number] #### [facility] ([facility]) [address] [place] [address] Clarity (U) Slightly Cloudy Abnormal Clear [facility] Comment on above: Performed By: #### L [id number] #### [facility] ([facility]) [address] [place] [address] Color (U) Neena Abnormal Yellow [facility] Comment on above: Performed By: #### L [id number] #### [facility] ([facility]) [address] [place] [address] Glucose (U) [Mass/Vol] Negative Normal Negative [facility] Comment on above: Performed By: #### L [id number] #### [facility] ([facility]) [address] [place] [address] HEMOGLOBIN PRESENCE IN URINE Negative Normal Negative [facility] Comment on above: Performed By: #### L [id number] #### [facility] ([facility]) [address] [place] [address] Ketones Ql (U) Negative Normal Negative [facility] Comment on above: Performed By: #### L [id number] #### [facility] ([facility]) [address] [place] [address] LEUKOCYTE ESTERASE PRESENCE IN URINE BY TEST STRIP Trace Abnormal Negative [facility] Comment on above: Performed By: #### L [id number] #### [facility] ([facility]) [address] [place] [address] NITRITE PRESENCE IN URINE Negative Normal Negative [facility] Comment on above: Performed By: #### L [id number] #### [facility] ([facility]) [address] [place] [address] pH (U) 5.0 [pH] Normal 5.0-8.0 [facility] Comment on above: Performed By: #### L [id number] #### [facility] ([facility]) [address] [place] [address] Protein (U) [Mass/Vol] 30 mg/dL Abnormal Negative [facility] Comment on above: Performed By: #### L [id number] #### [facility] [address] [place] [address] Specific gravity (U) [Rel density] 1.030 High 1.015-1.020 [facility] Comment on above: Performed By: #### L [id number] #### [facility] ([facility]) [address] [facility] [place] [address] URINE CULTURE, ROUTINEon Bacteria identified Cx Nom (U) No growth at 18-24 hours Normal [facility] Comment on above: Performed By: #### L [id number] ####[facility] [place] [place] [address] 36on 04-14-2023 36 Patient notified and verbalized understanding. Normal [facility] 36 Patient states she h as spiked [...] her until she sees us tomorrow? Normal [facility] Office Visiton 04-08-2023 Follow-up visit [id number] Brian Peterson 1955 F Date Provider Department Center 04/08/2023 RYAN STEVENS MP ORTHO MPORTHO No family history on file Level of Service:82754 ND POSTOP FOLLOW UP VISIT RELATED TO ORIGINAL PX (GC) Reason for Visit and Comments: Wound Check [[id number]] Normal [facility] CBC AUTO DIFFon 05-24-2021 BASO # 0.0 103/ul Normal 0.0-0.1 [facility] Comment on above: Performed By: #### C BC #### [facility] [address] [place] [address] Dr. Anirudh Richmond Basophils/100 WBC (Bld) 0.2 % Normal 0.2-2.0 [facility] Comment on above: Performed By: #### C BC #### [facility] [address] [place] [address] Dr. Anirudh Richmond EO # 0.0 103/ul Normal 0.0-0.7 [facility] Comment on above: Performed By: #### C BC #### [facility] [address] [place] [address] Dr. Anirudh Richmond Eosinophils/100 WBC (Bld) 0.2 % Critically low 0.9-7.0 [facility] Comment on above: Performed By: #### C BC #### [facility] [address] [place] [address] Dr. Anirudh Richmond Erythrocyte distribution width (RBC) [Ratio] 13.7 % Normal 11.0-15.0 [facility] Comment on above: Performed By: #### C BC #### [facility] [address] [place] [address] Dr. Anirudh Richmond Hematocrit (Bld) [Volume fraction] 44.9 % Normal 36.0-48.0 [facility] Comment on above: Performed By: #### C BC #### [facility] [address] [place] [address] Dr. Anirudh Richmond Hemoglobin (Bld) [Mass/Vol] 14.3 g/dL Normal 12.0-16.0 [facility] Comment on above: Performed By: #### C BC #### [facility] [address] [place] [address] Dr. Anirudh Richmond IG # 0.01 10e3/ul Normal 0.00-0.03 [facility] Comment on above: Performed By: #### C BC #### [facility] [address] [place] [address] Dr. Anirudh Richmond IG % 0.2 % Normal 0.0-0.5 [facility] Comment on above: Performed By: #### C BC #### [facility] [address] [place] [address] Dr. Anirudh Richmond LYMPH # 1.0 103/ul Critically low 1.2-3.8 [facility] Comment on above: Performed By: #### C BC #### [facility] [address] [place] [address] Dr. Anirudh Richmond Lymphocytes/100 WBC (Bld) 19.8 % Critically low 20.5-60.0 [facility] Comment on above: Performed By: #### C BC #### [facility] [address] [place] [address] Dr. Anirudh Richmond MANUAL DIFF REQ NO Normal [facility] Comment on above: Performed By: #### C BC #### [facility] [address] [place] [address] Dr. nAirudh Richmond MCH (RBC) [Entitic mass] 28.6 pg Normal 26.7-34.0 [facility] Comment on above: Performed By: #### C BC #### [facility] [address] [place] [address] Dr. Anirudh Richmond MCHC (RBC) [Mass/Vol] 31.8 g/dL Normal 29.9-35.2 [facility] Comment on above: Performed By: #### C BC #### [facility] [address] [place] [address] Dr. Anirudh Richmond MCV (RBC) [Entitic vol] 89.8 fL Normal 81.0-99.0 [facility] Comment on above: Performed By: #### C BC #### [facility] [address] [place] [address] Dr. Anirudh Richmond MONO # 0.6 103/ul Normal 0.3-0.8 [facility] Comment on above: Performed By: #### C BC #### [facility] [address] [place] [address] Dr. Anirudh Richmond Monocytes/100 WBC (Bld) 12.0 % Normal 1.7-12.0 [facility] Comment on above: Performed By: #### C BC #### [facility] [address] [place] [address] Dr. Anirudh Richmond NEUT # 3.6 103/ul Normal 1.4-6.5 [facility] Comment on above: Performed By: #### C BC #### [facility] [address] [place] [address] Dr. Anirudh Richmond Neutrophils/100 WBC (Bld) 67.6 % Normal 43.0-75.0 [facility] Comment on above: Performed By: #### C BC #### [facility] [address] [place] [address] Dr. Anirudh Richmond Platelet mean volume (Bld) [Entitic vol] 12.0 fL Normal 9.5-13.5 [facility] Comment on above: Performed By: #### C BC #### [facility] [address] [place] [address] Dr. Anirudh Richmond PLT 108 103/ul Critically low 150-450 [facility] Comment on above: Performed By: #### C BC #### [facility] [address] [place] [address] Dr. Anirudh Richmond RBC 5.00 106/ul Normal 4.20-5.40 [facility] Comment on above: Performed By: #### C BC #### [facility] [address] [place] [address] Dr. Anirudh Richmond WBC 5.3 103/ul Normal 4.0-11.0 [facility] Comment on above: Performed By: #### C BC #### [facility] [address] [place] [address] ABD/PELVIS WO CONon [...] present on a prior chest CT from [facility] dated 02/23/2014, previously measuring approximately 1.3 x [...] LAST TRUONG Date: 2021-05-24 18:02 Normal [facility] CULTURE URINEon 05-24-2021 CULTURE URINE Culture Observations : LIGHT GROWTH OF MIXED GENITAL NALLELY. NO POTENTIAL PATHOGENS SEEN. Normal [facility] Comment on above: Performed By: #### U RCX #### [facility] [address] [place] [address] Dr. Anirudh Richmond ER URINE PROFILEon Bilirubin Ql (U) Negative Normal NEGATIVE [facility] Comment on above: Performed By: #### U MICRO, ERUR #### [facility] [address] [place] [address] Dr. Anirudh Richmond Clarity (U) CLEAR Normal CLEAR [facility] Comment on above: Performed By: #### U MICRO, ERUR #### [facility] [address] [address] [address] Anirudh Richmond Color (U) ORANGE Abnormal YELLOW [facility] Comment on above: Performed By: #### U MICRO, ERUR #### [facility] [address] [address] [address] Anirudh PAZD A micrscopic examination will be performed if indicated. Normal [facility] Comment on above: Performed By: #### U MICRO, ERUR #### [facility] [address] [address] [address] Anirudh Richmond Glucose Ql (U) Negative Normal NEGATIVE [facility] Comment on above: Performed By: #### U MICRO, ERUR #### [facility] [address] [place] [address] Dr. Anirudh Richmond Hemoglobin Ql (U) Negative Normal NEGATIVE [facility] Comment on above: Performed By: #### U MICRO, ERUR #### [facility] [address] [place] [address] Dr. Anirudh Richmond Ketones Ql (U) Negative Normal NEGATIVE [facility] Comment on above: Performed By: #### U MICRO, ERUR #### [facility] [address] [place] [address] Dr. Anirudh Richmond LEUKOCYTES SMALL Abnormal NEGATIVE [facility] Comment on above: Performed By: #### U MICRO, ERUR #### [facility] [address] [address] [address] Anirudh Richmond Nitrite Ql (U) Negative Normal NEGATIVE [facility] Comment on above: Performed By: #### U MICRO, ERUR #### [facility] [address] [place] [address] Dr. Anirudh Richmond pH (U) 5.5 [pH] Normal 5-9 [facility] Comment on above: Performed By: #### U MICRO, ERUR #### [facility] [address] [place] [address] Dr. Anirudh Richmond SPEC GRAVITY >=1.030 Abnormal 1.005-<=1.025 [facility] Comment on above: Performed By: #### U MICRO, ERUR #### [facility] [address] [place] [address] Dr. Anirudh Richmond UA PROTEIN Negative Normal NEGATIVE/ TRACE [facility] Comment on above: Performed By: #### U MICRO, ERUR #### [facility] [address] [place] [address] Dr. Anirudh Richmond UR MICRO IND INDICATED Normal [facility] Comment on above: Performed By: #### U MICRO, ERUR #### [facility] [address] [place] [address] Dr. Anirudh Richmond Urobilinogen Qn (U) 0.2 {Gael'U}/dL Normal 0.2 - 1.0 [facility] Comment on above: Performed By: #### U MICRO, ERUR #### [facility] [address] [place] [address] Dr. Anirudh Richmond LIPASEon 05-24-2021 Lipase [Catalytic activity/Vol] 66.0 U/L Normal 23.0-300.0 [facility] Comment on above: Performed By: #### C LATOYA, LIPA #### [facility] [address] [place] [address] Dr. Anirudh Richmond PROF 14(COMP METB)on 021 Albumin [Mass/Vol] 3.8 g/dL Normal 3.5-5.0 [facility] Comment on above: Performed By: #### C MP, LIPA #### [facility] [address] [place] [address] Dr. Anirudh Richmond Albumin/Globulin [Mass ratio] 1.1 {ratio} Normal [facility] Comment on above: Performed By: #### C MP, LIPA #### [facility] [address] [place] [address] Dr. Anirudh Richmond ALP [Catalytic activity/Vol] 65 U/L Normal 38-126 [facility] Comment on above: Performed By: #### C MP, LIPA #### [facility] [address] [address] [address] Anirudh Richmond ALT [Catalytic activity/Vol] 47 U/L Normal 9-52 [facility] Comment on above: Performed By: #### C MP, LIPA #### [facility] [address] [address] [address] Anirudh Richmond Anion gap [Moles/Vol] 11.7 mmol/L Normal [facility] Comment on above: Performed By: #### C MP, LIPA #### [facility] [address] [place] [address] Dr. Anirudh Richmond AST [Catalytic activity/Vol] 41 U/L Critically high 14-36 [facility] Comment on above: Performed By: #### C MP, LIPA #### [facility] [address] [place] [address] Dr. Anirudh Richmond Bilirubin [Mass/Vol] 0.4 mg/dL Normal 0.2-1.3 [facility] Comment on above: Performed By: #### C MP, LIPA #### [facility] [address] [place] [address] Dr. Anirudh Richmond Calcium [Mass/Vol] 9.2 mg/dL Normal 8.4-10.2 [facility] Comment on above: Performed By: #### C MP, LIPA #### [facility] [address] [place] [address] Dr. Anirudh Richmond Chloride [Moles/Vol] 99 mmol/L Normal 98-107 [facility] Comment on above: Performed By: #### C MP, LIPA #### [facility] [address] [place] [address] Dr. Anirudh Richmond CO2 [Moles/Vol] 28.9 mmol/L Normal 22.0-30.0 [facility] Comment on above: Performed By: #### C MP, LIPA #### [facility] [address] [place] [address] Dr. Anirudh Richmond Creatinine [Mass/Vol] 0.92 mg/dL Normal 0.52-1.04 [facility] [facility] Comment [facility]: Performed By: #### C MP, LIPA #### [facility] [address] [address] [address] Anirudh [place] EGFR-AF HUNGARIAN >60 Normal >=60 [facility] Comment on above: Performed By: #### C MP, LIPA #### [facility] [address] [address] [address] Anirudh [place] EGFR-NON AF HUNGARIAN >60 Normal >=60 [facility] Comment on above: Performed By: #### C MP, LIPA #### [facility] [address] [address] [address] Anirudh [place] Globulin (S) [Mass/Vol] 3.5 g/dL Normal [facility] Comment on above: Performed By: #### C MP, LIPA #### [facility] [address] [place] [address] Dr. Anirudh [place] Glucose [Mass/Vol] 170 mg/dL Critically high 74-106 T [facility] Comment on above: Performed By: #### C MP, LIPA #### [facility] [address] [address] [address] Anirudh [place] Potassium [Moles/Vol] 3.6 mmol/L Normal 3.4-5.0 [facility] Comment on above: Performed By: #### C MP, LIPA #### [facility] [address] [address] [address] Anirudh [place] Protein [Mass/Vol] 7.3 g/dL Normal 6.1-8.2 [facility] Comment on above: Performed By: #### C MP, LIPA #### [facility] [address] [address] [address] Anirudh [place] Sodium [Moles/Vol] 136 mmol/L Critically low 137-145 [facility] Comment on above: Performed By: #### C MP, LIPA #### [facility] [address] [address] [address] Anirudh [place] Urea nitrogen [Mass/Vol] 18.0 mg/dL Critically high 7.0-17.0 [facility] Comment on above: Performed By: #### C MP, LIPA #### [facility] [address] [address] [address] Anirudh [place] Urea nitrogen/Creatinin e [Mass ratio] 19.6 mg/mg Normal [facility] Comment on above: Performed By: #### C MP, LIPA #### [facility] [address] [place] [address] Dr. Anirudh [place] URINE MICROSCOPIC ONLYon BACTERIA SMALL Abnormal NONE SEEN [facility] Comment on above: Performed By: #### U MICRO, ERUR #### [facility] [address] [place] [address] Dr. Anirudh [place] Bacteria identified Cx Nom (U) INDICATED Normal [facility] Comment on above: Performed By: #### U MICRO, ERUR #### [facility] [address] [place] [address] Dr. Anirudh [place] CAST NONE SEEN Normal NONE SEEN [facility] Comment on above: Performed By: #### U MICRO, ERUR #### [facility] [address] [place] [address] Dr. Anirudh [place] Crystals LM Nom (Urine sed) NONE SEEN Normal NONE SEEN [facility] Comment on above: Performed By: #### U MICRO, ERUR #### [facility] [address] [place] [address] Dr. Anirudh [place] Epithelial cells LM Ql (Urine sed) FEW Abnormal NONE SEEN /RARE [facility] Comment on above: Performed By: #### U MICRO, ERUR #### [facility] [address] [place] [address] Dr. Anirudh [place] MUCOUS TRACE Abnormal NONE SEEN [facility] Comment on above: Performed By: #### U MICRO, ERUR #### [facility] [address] [place] [address] Dr. Anirudh [place] RBC NONE SEEN Abnormal 0-2 [facility] Comment on above: Performed By: #### U MICRO, ERUR #### [facility] [address] [place] [address] Dr. Anirudh [place] WBC 5-10 Abnormal NONE SEEN [facility] Comment on above: Performed By: #### U MICRO, ERUR #### [facility] [address] [address] [address] Anirudh [place] .eGFRon 03-07-2021 eGFR AA >60 Normal >=60 [facility] Comment on above: Result Comment: See comment. Performed By: #### E GFR #### [facility] [address] [place] [address] eGFR Non-AA >60 Normal >=60 [facility] Comment on above: Result Comment: Stag [...] years Performed By: #### E GFR #### [address] [address] Basic Metabolic Profileon Anion gap [Moles/Vol] 10 mmol/L Normal 7-17 [facility] Comment on above: Performed By: #### C D:[id number] #### [facility] [address] [place] [address] Calcium [Mass/Vol] 8.1 mg/dL Low 8.5-10.3 [facility] Comment on above: Performed By: #### C D:[id number] #### [facility] [address] [place] [address] Chloride [Moles/Vol] 103 mmol/L Normal 98-110 [facility] Comment on above: Performed By: #### C D:[id number] #### [address] [address] CO2 [Moles/Vol] 26 mmol/L Normal 22-32 [facility] Comment on above: Performed By: #### C D:[id number] #### [address] [address] Creatinine [Mass/Vol] 0.79 mg/dL Normal 0.44-1.03 [facility] Comment on above: Performed By: #### C D:[id number] #### [address] [address] Glucose [Mass/Vol] 162 mg/dL High 70-99 [facility] Comment on above: Performed By: #### C D:[id number] #### [address] [address] Potassium [Moles/Vol] 4.0 mmol/L Normal 3.4-4.8 [facility] Comment on above: Performed By: #### C D:[id number] #### [address] [address] Sodium [Moles/Vol] 135 mmol/L Normal 133-142 [facility] Comment on above: Performed By: #### C D:[id number] #### [address] [address] Urea nitrogen [Mass/Vol] 21 mg/dL Normal 8-26 [facility] Comment on above: Performed By: #### C D:[id number] #### [address] [address] Urea nitrogen/Creatinin e [Mass ratio] 26.6 mg/mg High 10.0-20.0 [facility] Comment on above: Performed By: #### C D:[id number] #### [address] [address] Hgb & Hcton 03-07-2021 Hematocrit (Bld) [Volume fraction] 38.1 % Normal 36.0-46.0 [facility] Comment on above: Performed By: #### H BA1C #### [address] [id number] Hemoglobin (Bld) [Mass/Vol] 12.9 g/dL Normal 12.0-16.0 [facility] Comment on above: Performed By: #### H BA1C #### [address] [address] Hgb A1con 03-07-2021 Glucose [Mass/Vol] 126 mg/dL High 68-114 [facility] Comment on above: Result Comment: Math ematical Calc approx. The mean gluc equivalency of A1c Performed By: #### M G #### [place] [address] Hgb A1c 6.0 % A1c High 4.0-5.6 [facility] Comment on above: Result Comment: Refe rence Range: 4.0 - 5.6 % Normal 5.7 - 6.4 % Pre-Diabetes > 6.5 % Diabetes Performed By: #### M G #### [address] [id number] Inpatient Clinical Summaryon 03-07-2021 Inpatient Clinical Summary [address] [address] [place] [address] Clinical Summary Person Information Name: Francisca Peterson Age: 65 Years : 1955 Sex: Female PCP: Dary Puente MD Marital Status: PCP: [id number] Race: White Ethnicity: Not or Language: Malawian Visit Id: Visit Reason: Speciality: Acuity: Enc Type: Observation Med Service: Surgery Arrival: 03/06/2021 06:33:06 Discharge: Dispo Type: Address: [address] [place] [address] [place] [address] Diagnosis: 1:HTN (hypertension); 2:High cholesterol; 3:Diabetes; 4:Left [...] Discharge Patient Education Review and attach [facility] Hip/Knee Inpatient Discharge Special Instructions Your total [...] A1c: 6. (more content not included)... Normal [facility] Magnesiumon 03-07-2021 Magnesium [Mass/Vol] 1.7 mg/dL Normal 1.7-2.4 [facility] Comment on above: Performed By: #### M G #### [address] [address] POC Glucose Randomon 021 Glucose [Mass/Vol] 160 mg/dL High 70-99 [facility] Comment on above: Performed By: #### H BA1C #### [address] [address] Glucose [Mass/Vol] 145 mg/dL High 70-99 [facility] Comment on above: Performed By: #### C D:[id number] #### [facility] [address] [place] [address] Operative Reporton 1 Operative Report Indication for [...] Surgeon(s) Nicolas Martinez MD (Surgeon - Primary) Saturator Pearl VIDAL, Cynthia Sanchez (Offensive Coordinator) Anesthesia General Alicia MONGE, Zayda Canas (Utility Manager) Aaliyah CAMARACOLD STORAGE SUPERVISOR, Leonor Love (Provider) Santos CHENG, Ritu Patel (Provider) Estimated Blood Loss 150.0 mL Urine Output no fernández Findings as abve Specimen(s) none Complications none Tourniquet Time Tourniquet Cuff 44x4 [id number], Thigh (Left), Total Time 37 Settin mmHg Sponge/Needle Count correct Fluid Count 1500 cc Catheters, Drains, Tubes Device: Drain Hemovac 08/24 400mL [id number] Electronically signed by ___ Nicolas Martinez MD [...] osteotomized with a 32 mm patellar dome. [place] holes placed knee was then cleansed with [...] layer was then closed with #1 Vicryl [id number] sutures over 2 Hemovac drains the subcu [...] Nicolas Martinez MD 03/06/21 13:09 EDT Normal [facility] POC Glucose Randomon 021 Glucose [Mass/Vol] 217 mg/dL High 70-99 [facility] Comment on above: Performed By: #### [facility] #### [address] [address] Glucose [Mass/Vol] 146 mg/dL High 70-99 [facility] Comment on above: Performed By: #### C D:[id number] #### [address] [address] Glucose [Mass/Vol] 136 mg/dL High 70-99 [facility] Comment on above: Performed By: #### C D:[id number] #### [address] [address] Glucose [Mass/Vol] 98 mg/dL Normal 70-99 [facility] Comment on above: Performed By: #### H BA1C #### [address] [address] Glucose [Mass/Vol] 108 mg/dL High 70-99 [facility] Comment on above: Performed By: #### H BA1C #### [address] [address] .eGFRon 02-07-2021 eGFR AA >60 Normal >=60 [facility] Comment on above: Result Comment: See comment. Performed By: #### E GFR #### [address] [address] eGFR Non-AA 59 mL/min/1.73m? Low >=60 [facility] Comment on above: Result Comment: Stag es [...] years Performed By: #### E GFR #### [address] [address] CBC w/ Diffon 02-07-2021 Erythrocyte distribution width (RBC) [Ratio] 14.0 % Normal 11.6-14.8 [facility] Comment on above: Performed By: #### H ULI #### [address] [address] Hematocrit (Bld) [Volume fraction] 45.1 % Normal 36.0-46.0 [facility] Comment on above: Performed By: #### Lawrence MCNALLY #### [address] [address] Hemoglobin (Bld) [Mass/Vol] 15.0 g/dL Normal 12.0-16.0 [facility] Comment on above: Performed By: #### Lawrence MCNALLY #### [address] [address] MCH (RBC) [Entitic mass] 29.9 pg Normal 27.0-35.0 [facility] Comment on above: Performed By: #### Lawrence MCNALLY #### [address] [address] MCHC 33.4 % Normal 31.0-37.0 [facility] Comment on above: Performed By: #### Lawrence MCNALLY #### [address] [address] MCV (RBC) [Entitic vol] 89.5 fL Normal 80.0-100.0 [facility] Comment on above: Performed By: #### Lawrence MCNALLY #### [address] [address] Platelet 156 x10*3/mcL Normal 150-350 [facility] Comment on above: Performed By: #### Lawrence MCNALLY #### [address] [address] Platelet mean volume (Bld) [Entitic vol] 9.7 fL Normal 6.7-10.6 [facility] Comment on above: Performed By: #### Lawrence BASHIR1C #### [address] [address] RBC 5.04 x10*6/mcL Normal 3.80-5.20 [facility] Comment on above: Performed By: #### Lawrence MCNALLY #### [address] [address] WBC 6.2 x10*3/mcL Normal 4.5-11.0 [facility] Comment on above: Performed By: ###John MCNALLY #### [address] [address] CMPon 02-07-2021 Albumin [Mass/Vol] 4.2 g/dL Normal 3.2-4.9 [facility] Comment on above: Performed By: ###John MCNALLY #### [address] [address] Albumin/Globulin [Mass ratio] 1.6 {ratio} Normal 1.1-2.2 [facility] Comment on above: Performed By: ###John MCNALLY #### [address] [address] Alk Phos 48 IU/L Normal 32-91 [facility] Comment on above: Performed By: #### Lawrence MCNALLY #### [address] [address] ALT [Catalytic activity/Vol] 49 U/L Normal 14-54 [facility] Comment on above: Performed By: ###John MCNALLY #### [address] [address] Anion gap [Moles/Vol] 13 mmol/L Normal 7-17 [facility] Comment on above: Performed By: ###John MCNALLY #### [address] [address] AST [Catalytic activity/Vol] 39 U/L Normal 15-41 [facility] Comment on above: Performed By: #### Lawrence MCNALLY #### [address] [address] Bili Total 1.0 mg/dL Normal 0.3-1.2 [facility] Comment on above: Performed By: #### Lawrence MCNALLY #### [address] [address] Calcium [Mass/Vol] 9.8 mg/dL Normal 8.5-10.3 [facility] Comment on above: Performed By: #### Lawrence MCNALLY #### [address] [address] Chloride [Moles/Vol] 101 mmol/L Normal 98-110 [facility] Comment on above: Performed By: #### Lawrence MCNALLY #### [address] [address] CO2 [Moles/Vol] 30 mmol/L Normal 22-32 [facility] Comment on above: Performed By: #### Lawrence MCNALLY #### [address] [address] Creatinine [Mass/Vol] 0.99 mg/dL Normal 0.44-1.03 [facility] Comment on above: Performed By: #### Lawrence MCNALLY #### [address] [address] Glucose [Mass/Vol] 117 mg/dL High 70-99 [facility] Comment on above: Performed By: #### Lawrence MCNALLY #### [address] [address] Potassium [Moles/Vol] 3.8 mmol/L Normal 3.4-4.8 [facility] Comment on above: Performed By: #### Lawrence MCNALLY #### [address] [address] Protein [Mass/Vol] 6.9 g/dL Normal 6.5-8.1 [facility] Comment on above: Performed By: #### Lawrence MCNALLY #### [address] [address] Sodium [Moles/Vol] 140 mmol/L Normal 133-142 [facility] Comment on above: Performed By: #### Lawrence BA1C #### [address] [address] Urea nitrogen [Mass/Vol] 24 mg/dL Normal 8-26 [facility] Comment on above: Performed By: #### Lawrence MCNALLY #### [address] [address] Urea nitrogen/Creatinin e [Mass ratio] 24.2 mg/mg High 10.0-20.0 [facility] Comment on above: Performed By: ###John MCNALLY #### [address] [address] Diff Autoon 02-07-2021 Baso Absolute 0.1 x10*3/mcL Normal 0.0-0.2 [facility] Comment on above: Performed By: ###John MCNALLY #### [address] [address] Basophils/100 WBC (Bld) 1.0 % Normal 0.0-1.5 [facility] Comment on above: Performed By: ###John Bravo BA1C #### [address] [address] Eos Absolute 0.1 x10*3/mcL Normal 0.0-0.4 [facility] Comment on above: Performed By: #### Lawrence MCNALLY #### [address] [address] Eosinophils/100 WBC (Bld) 1.7 % Normal 0.0-5.4 [facility] Comment on above: Performed By: ###John Bravo BA1C #### [address] [address] Lymph Absolute 1.9 x10*3/mcL Normal 1.0-4.8 [facility] Comment on above: Performed By: ###John MCNALLY #### [address] [address] Lymphocytes/100 WBC (Bld) 31.2 % Normal 27.2-40.8 [facility] Comment on above: Performed By: #### H BA1C #### [address] [address] Sarpy Absolute 0.6 x10*3/mcL Normal 0.1-1.1 [facility] Comment on above: Performed By: #### H BA1C #### [address] [address] Monocytes/100 WBC (Bld) 9.2 % Normal 3.7-11.9 [facility] Comment on above: Performed By: #### H BA1C #### [address] [address] Neutro Absolute 3.5 x10*3/mcL Normal 1.8-7.7 [facility] Comment on above: Performed By: #### H BA1C #### [address] [address] Neutro Auto 56.9 % Normal 47.2-70.8 [facility] Comment on above: Performed By: #### H BA1C #### [address] [address] Hgb A1con 02-07-2021 Glucose [Mass/Vol] 134 mg/dL High 68-114 [facility] Comment on above: Result Comment: Math ematical Calc approx. The mean gluc equivalency of A1c Performed By: #### H BA1C #### [address] [address] Hgb A1c 6.3 % A1c High 4.0-5.6 [facility] Comment on above: Result Comment: Refe rence Range: 4.0 - 5.6 % Normal 5.7 - 6.4 % Pre-Diabetes > 6.5 % Diabetes Performed By: #### H BA1C #### [address] [address] Vital Signs Date Time Vital Sign Value Performing Clinician Faci lity 10-08-2023 10:39-0500 Body height 168.9 cm Migdalia Carver [employer] [facility] 10-08-2023 10:39-0500 Body mass index (BMI) [Ratio] 31.26 kg/m2 Migdalia Carver [employer] [facility] 10-08-2023 10:39-0500 Body weight 89.18 kg Migdalia Carver W[employer]ER P[employer]GER [employer] [facility] 10-08-2023 10:39-0500 Respiratory rate 16 /min Migdalia Carver W[employer]ER P[employer]ENGER [employer] Work Phone: [facility]01[employer] [facility] 06-02-2023 14:07-0400 Blood Pressure Location MCKENZIE FONTAINE [facility] 06-02-2023 14:07-0400 Diastolic blood pressure 80 mm[Hg] MCKENZIE ZHEN [facility] 06-02-2023 14:07-0400 Heart rate 68 /min MCKENZIE ZHEN [facility] 06-02-2023 14:07-0400 Respiratory rate 16 /min MCKENZIE ZHEN [facility] 06-02-2023 14:07-0400 Systolic blood pressure 123 mm[Hg] MCKENZIE ZHEN [facility] 06-02-2022 11:45-0400 Blood Pressure Location Martin ALEMAN [facility] 06-02-2022 11:45-0400 Diastolic blood pressure 90 mm[Hg] Martin ALEMAN [facility] 06-02-2022 11:45-0400 Heart rate 80 /min Martin ALEMAN [facility] 06-02-2022 11:45-0400 Respiratory rate 16 /min Martin ALEMAN [facility] 06-02-2022 11:45-0400 Systolic blood pressure 140 mm[Hg] Martin ALEMAN [facility] Encounters Encounter Date Encounter Type Care Provider Facility Start: 06-03-2024 ambulatory Martin Smithi ty:[facility] Start: 03-30-2024 End: 03-30-2024 ambulatory [facility] Start: 10-08-2023 End: 10-08-2023 ambulatory MIGDALIA CARVER [facility] Start: 10-08-2023 End: 10-08-2023 Office consultation new/estab patient 40 min Migdalia Lozaman [employer] Work Phone: [facility] Comment on above: Lipoma of breast (Pr imary Dx); Mass of right breast, unspecified quadrant; Other signs and symptoms in breast Start: 09-30-2023 End: 09-30-2023 ambulatory [facility] Start: 09-29-2023 End: 09-30-2023 ambulatory [facility] Start: 06-02-2023 End: 06-03-2023 ambulatory YOUNG FONTAINE Facility:[facility] Start: 06-02-2023 End: 06-02-2023 Patient encounter procedure MCKENZIE FONTAINE [facility] Start: 04-29-2023 End: 04-29-2023 ambulatory [facility] Start: 04-15-2023 End: 04-15-2023 ambulatory [facility] Start: 04-15-2023 End: 04-15-2023 [facility] Start: 04-08-2023 End: 04-08-2023 ambulatory [facility] Start: 06-02-2022 End: 06-02-2022 Patient encounter procedure Martin ALEMAN [facility] Start: 05-24-2021 End: 05-24-2021 ambulatory JAYLYN RUIZ Facility: Start: 03-06-2021 End: 03-07-2021 ambulatory MD NICOLAS MARTINEZ Facility:[facility] Start: 02-25-2021 End: 02-26-2021 ambulatory MD NICOLAS MARTINEZ Facility:[facility] Start: 02-07-2021 End: 02-08-2021 ambulatory MD NICOLAS MARTINEZ Facility:[facility] Procedures Date Procedure Procedure Detail Performing Clinician Start: 03-30-2024 Follow-up visit Follow-up [facility] Start: 09-29-2023 Mammography Migdalia rodas [employer] Work Phone: Start: 02-03-2022 Bypass of stomach Rogelio ALEMAN Start: 12-14-2017 Diabetic retinal eye exam Migdalia Carver [employer] Work Phone: Arthroplasty of knee Martin ALEMAN Back structure, excl uding neck (body structure) MCKENZIE FONTAINE Cholecystectomy Martin MULTANI Colonoscopy Martin ALEMAN Plan of Treatment Date Care Activity Detail Author Start: 10-08-2024 Adult BMI Screening Adult BMI Screen [facility] [employer] [facility] Start: 10-08-2024 Tobacco [facility]ening [facility] Start: 09-29-2024 Screening for malign ant neoplasm of breast [facility] Start: 03-30-2024 End: 10-08-2024 US Breast - right limited Ultrasound breast limited right Imaging Routine Mass of right breast, unspecified quadrant Lipoma of breast Other signs and symptoms in breast Expected: 03/30/2024, Expires: 10/08/2024 [employer] Work Phone: Comment on above: Expected: 03/30/2024 , Expires: 10/08/2024 Start: 03-07-2023 Adult BMI Follow Up Plan Adult BMI [facility] Start: 2019 Fall Risk Screening [facility] Start: 12-14-2018 Glaucoma screening Diabetic Op [facility]thal[facility] Start: 1973 Administration of varicella zoster vaccine Zoster (Shingles) Vaccine (1 of 2) [facility] Start: 1973 DTaP,Tdap and Td Vac cines (1 - Tdap) DTaP,Tdap and Td Vaccines (1 - Tdap) [facility] Start: 1972 Diabetic foot examination Diabetic F oot Exam [facility] [employer] Start: 1966 Depression Screening Depression Scre ening [facility] Immunizations Immunization Date Immunization Notes Care Provider Dulce reyes 05-24-2020 influenza virus vaccine, unspecified formulation Martin ALEMAN [facility] 05-24-2020 pneumococcal conjuga te vaccine, 13 valent Martin ALEMAN [facility] 07-06-2019 influenza virus vaccine, unspecified formulation Martin ALEMAN [facility] 06-08-2018 influenza virus vaccine, unspecified formulation Martin ALEMAN [facility] 06-08-2018 influenza, injectabl e, quadrivalent, preservative free Migdalia Carver [employer] Work Phone: [employer] 06-17-2017 influenza virus vaccine, unspecified formulation Martni ALEMAN [facility] 06-17-2017 influenza, injectabl e, quadrivalent, preservative free Migdalia Carver [employer] P[employer] Work Phone: [employer] Payers Date Payer Category Payer Medicare 2019 Medicare [id number] 2019 Unknown 2019 Unknown [id number] 1960 Medicare [id number] 1960 Unknown [id number] 1955 Unknown [id number] 1955 Unknown [id number] 2.16. [id number] 1955 Unknown [id number] 2.16. [id number] 1955 Unknown [id number] 2.16.84 [id number] 1955 Unknown [id number] 2.16.8 [id number] 1955 Unknown [id number] 2.16.8 [id number] 1955 Unknown [id number] 2.16.8 [id number] 1955 Unknown [id number] 2.16.8 [id number] 1955 Unknown [id number] 2.16.8 [id number] Social History Date Type Detail Facility Start: 06-02-2022 End: 10-08-2023 Tobacco smoking status Ex-smoker (finding) [facility] Start: 09-13-2020 End: 10-08-2023 Sex Assigned At Female [facility] Tobacco smoking status Never [facility] End: 08-17-1978 History of tobacco use Current smoker [facility] [facility] End: 08-17-1978 History of tobacco use Cigarette Smoker [facility] [facility] Start: 09-13-2020 End: 10-08-2023 Cigarettes smoked current (pack per day) - [facility] Start: 10-08-2023 Tobacco use and exposure Smokeless tobacco non-user [facility] [facility] Start: 10-08-2023 Alcohol intake Ex-drinker (finding) [facility] [facility] Start: 1955 Sex Assigned At Not on file P [facility] Physical Therapy Medical Equipment Procedure Code Equipment Code Equipment Origin al Text Equipment Identifier Dates Inject 1 Pen Nee dle under the skin 4 (four) times a day. [id number] Start: 05-10-2018 Functional Status Date Assessment Result Facility 06-02-2023 Functional Status N/A [facility] 06-02-2022 Functional Status N/A [facility] Clinical Notes 03-06-2021 to 03-30-2024 Migdalia Carver APRN-SKIP MINER - 10/08/2023 10:00 AM EST Note Date [...] Former Types: [employer] (more content not included)... [facility] 10-08-2023 History of Present illness Narrative Images [...] and right breast ultrasound on 09/29/2023 at [facility]. Per the radiologist's report, at the [...] side. Depression Diabetes mellitus type 2, controlled ([facility]) GERD (gastroesophageal reflux disease) Hearing loss Hepatic steatosis Hyperlipidemia Hypertension Kidney stones Dr Aleman Nodule of right lung OA (osteoarthritis) of neck Visual impairment wears corrective lenses PAST SURGICAL HISTORY: Past Surgical History: Procedure Laterality Date CHOLECYSTECTOMY COLONOSCOPY COLONOSCOPY N/A 12/04/2017 Performed by Ishan Hart MD at [facility] Coronary angiogram and left ventricular gram/pressure N/A 10/23/2021 Performed by Lisandra Carter MD at [facility] CARDIAC CATH LABS EGD N/A 12/04/2017 Performed by Ishan Hart MD at [facility] GASTRIC BYPASS 02/03/2022 LAPAROSCOPY x 3 [...] of children: 1 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 Case consulted with radiologist at [facility] to ensure appropriate treatment recommendations. Mammogram shows changes most compatible with weight loss. No suspicious findings on mammogram or targeted ultrasound. Calcs stable. Lump is consistent with lipoma. Treatment options discussed. Will request 6 month f/u ultrasound, to be scheduled at [facility]. Follow up to be determined - await [...] procedures Referring and communicating with other health rn urgent care (not separately reported) Documenting clinical information in the electronic or other health record Independently interpreting results (not separately reported) and communicating results to the patient/family/caregiver Migdalia Carver CNP [facility] Breast Surgery [phone] FLOYD [facility] 10/08/23 1627 documented in this encounter [facility] 09-30-2023 Note Chief Complaint: low back pain [...] Exam: intact Straigh (more content not included)... [facility] 06-02-2023 Hospital Discharge instructions Patient Education 06/02/2023 14:51:40 Kidney Stones, Zbyt-iv-Xpiz Kidney Stones Kidney stones are rock-like masses [...] Follow these instructions at home: Medicines Take glkh-fsw-kqfghnu and prescription medicines only as told by [...] provider. Document Revised: 04/07/2022 Document Reviewed: 04/07/2022 [employer] Patient Education 2022 [employer] [facility]. Follow Up Care 06/02/2022 12:11:19 With:MCKENZIE FONTAINE PA-C, URL Address: [address] [place] [address] [phone] When: Unknown Comments:1 yr w/ KARINA [facility] 04-29-2023 Note Orthopedic Surgery Subjective 02/12/2023 L3-L5 [...] bone stimulator Follow up in 3 months [facility] 04-15-2023 Note Attestation signed by Ryan Tsai [...] be an additional personal documentation from me. [facility] 04-08-2023 Note Attestation signed by Ryan Tsai [...] be an additional personal documentation from me. [facility] 06-02-2022 Hospital Discharge instructions Patient Education 06/02/2022 11:52:01 Kidney Stones, Tkgm-rv-Mjhq Kidney Stones Kidney stones are rock-like masses [...] Follow these instructions at home: Medicines Take lgbo-krg-cficzbl and prescription medicines only as told by [...] 01/19/2009 Document Revised: 12/20/2019 Document Reviewed: 12/20/2019 [employer] Patient Education 2020 [facility] [facility]. Follow Up Care 04/29/2021 11:55:00 With:MALENA MONGE, Martin Singh, URL Address: [facility] [address] , [place] [address]- [phone] When:06/02/2023 Comments:KARINA [facility] 03-07-2021 Note Admission Informatio n Admitted for [...] 10 mg= 1 tabs, Oral, Daily Prescriptions Copan 5 mg-325 mg oral tablet, 1 tabs, [...] Dose: 03/06/21 17:00:00 EDT, Dispense From Location: [id number]-IRW-[id number], 03/06/21 15:15:00 EDT acetaminophen, 650 mg, Oral, Tab, q4hr, PRN fever, First Dose: 03/06/21 15:15:00 EDT, Dispense From Location: [id number]-TEX-[id number], 03/06/21 15:15:00 EDT bisacodyl, 10 mg, Rectal, Supp, Daily, PRN constipation, First Dose: 03/06/21 15:15:00 EDT, Dispense From Location: Ggqvvqy-GAD-4U, 03/06/21 15:15:00 EDT ceFAZolin, 1 g, IV Piggyback, Powder-Inj, q8hr for 3 doses, infuse over 0.5 hr, First Dose: 03/06/21 19:00:00 EDT, Stop Date: 03/07/21 18:59:00 EDT, [facility] Prophylaxis- Pre/Post-Op, 03/06/21 15:15:00 EDT cetirizine, 10 mg, Oral, Tab, Daily, First Dose: 03/07/21 9:00:00 EDT, Dispense From Location: [place], 03/06/21 13:26:00 EDT Dextrose 10% in Water, 125 mL, IV Piggyback, Soln-IV, As Indicated for 20 doses, PRN other (see comment), infuse over 0.3 hr, First Dose: 03/06/21 13:02:00 EDT, Stop Date: Limited # of times, Dispense From Location: Hrdsuyf-VXY-EW, 03/06/21 13:02:00 EDT Dextrose 5% in Lactated Ringers Injection 1,000 mL, 1,000 mL, Soln-IV, IV, 80 mL/hr, Start Date: 03/06/21 15:15:00 EDT, Dispense From Location: 6NU, 03/06/21 15:15:00 EDT docusate, 100 mg, Oral, Cap, BID, First Dose: 03/06/21 21:00:00 EDT, Dispense From Location: [address], 03/06/21 15:15:00 EDT FLUoxetine, 20 mg, Oral, Cap, qAM, First Dose: 03/07/21 9:00:00 EDT, Dispense From Location: [address], 03/06/21 13:26:00 EDT fluticasone nasal, 1 sprays, Nasal, [place], Daily, First Dose: 03/07/21 9:00:00 EDT, Dispense From Location: [facility], 03/06/21 12:56:00 EDT glucagon, 1 mg, Subcutaneous, Injection, As Indicated for 20 doses, PRN other (see comment), First Dose: 03/06/21 13:32:00 EDT, Stop Date: Limited # of times, Dispense From Location: [facility], 03/06/21 13:32:00 EDT hydroCHLOROthiazide, 25 mg, Oral, Tab, qAM, First Dose: 03/07/21 9:00:00 EDT, Dispense From Location: [address], 03/06/21 13:26:00 EDT hydrocodone-acetaminophen, 2 tabs, Oral, Tab, q4hr, PRN severe pain [7-10 on pain scale], First Dose: 03/06/21 14:45:00 EDT, Dispense From Location: [address], 03/06/21 14:45:00 EDT hydrocodone-acetaminophen, 1 tabs, Oral, Tab, q4hr, PRN moderate pain [4-6 on pain scale], First Dose: 03/06/21 14:45:00 EDT, Dispense From Location: [address], 03/06/21 14:45:00 EDT HYDROmorphone, 0.5 mg, IV Push, Injection, q3hr, PRN breakthrough pain, First Dose: 03/06/21 14:45:00 EDT, Dispense From Location: Mpggspo-VAR-[id number], 03/06/21 14:45:00 EDT insulin aspart, sliding scale, Subcutaneous, Injection, AC, First Dose: 03/06/21 16:30:00 EDT, 03/06/21 17:49:00 EDT insulin aspart, 12 units, Subcutaneous, Injection, qAM, First Dose: 03/07/21 7:30:00 EDT, 03/06/21 17:49:00 EDT insulin (more content not included)... [facility] 03-06-2021 Note Chief Complaint Left knee [...] Flonase 50 mcg/in (more content not included)... [facility] Evaluation + Plan note Future Appointments Appointment Date:06/05/2023 09:30:00 AM Scheduled Provider:Martin ALEMAN MD Location:[facility] Appointment Type:URO Office Visit [facility] Evaluation + Plan note Future Appointments Appointment Date:06/03/2024 09:45:00 AM Scheduled Provider:Martin ALEMAN MD Location:[facility] Appointment Type:URO Office Visit [facility] Evaluation note Diagnosis Lipoma of breast- Primary Lipoma of other specified sites Mass of right breast, unspecified quadrant Other signs and symptoms in breast documented [facility] Narrative No data available for this section [facility] InstructionsNot on filedocumented in this encounter [facility] No data available for this section [facility] Summary Purpose Family History No Family History [...] section and content) DATE CREATED AUTHOR 03/09/2021 [facility] DATE CREATED AUTHOR AUTHOR'S ORGANIZ ATION 05/29/2021 [facility] DATE CREATED AUTHOR AUTHOR'S ORGANIZ ATION 06/03/2023 [facility] DATE CREATED AUTHOR AUTHOR'S ORGANIZ ATION 09/30/2023 [facility] DATE CREATED AUTHOR AUTHOR'S ORGANIZ ATION 10/16/2023 [facility] DATE CREATED AUTHOR AUTHOR'S ORGANIZ ATION 04/01/2024 [facility] Patient Care team informatio n (unrecognized section and content) Magistrate Judge Relationship Specialty Start Date End Date Dary Puente MD [address] [place] [address] PCP - General Family Medicine 08/19/18 Reason for Visit (unrecogniz ed section and content) Reason Comments New Patient Specialty Diagnoses / Procedures Referred By Leigha meza Referred To Contact Breast Surgery Diagnoses Mass of right breast, unspecified quadrant Sancho, Sarah, 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 [employer] provides no warranty or guarantee of the accuracy or completeness of information in this document.
--- NOTE | 2024-04-23 17:07 | P.HP_ITS ---
HPI H&P: HPI History of Present Illness Chief complaint: INTRACTABLE BACK PAIN Narrative: 69 y o female with chronic back pain with prior hx of lumbar surgery presented to ED with intractable thoracolumbar back pain, generalized weakness. Her pain is mostly left sided. She was previously seen in ED on 04/17 and was discharged home after relatively unremarkable work up and improvement in her symptoms. She then developed fevers/chills, intermittent confusion and was evaluated at OSH and was sent home on oral Keflex for possible UTI. However, she continued to feel overall weak/tired and reports intermittent low grade fever at home, even while using anti pyretics. She also reports that her back pain had initially improved but subsequently got worse with spasms/low grade fever/ and diaphoresis. She denies neurological weakness/numbness. Pt reports inability to move/ambulate due to pain. Prior to her arrival to ED, she received a phone call from [facility] ED and was informed that her blood cx is positive for bacteria and she should report to ED. Upon review of her records, her blood cx was positive for serratia mercescens. Patient was admitted for dehydration, gram negative bacteremia, intractable back pain. CT scan did not show any sig/new changes in lumbar spine. She has small non obs renal stones but otherwise no acute intra abdominal pathology on CT Abd/pelvis. Opioid HPI Opioid Management Most Recent Pain and Opioid Data: Last Pain Scale 7 04/24/24 12:00 Last Pain Assessment 04/24/24 12:00 Last MAR Pain Assessment 04/24/24 09:51 Last ORT Total Score 0 04/23/24 16:58 Last ORT Risk Category Low Risk 04/23/24 16:58 Review of Systems ROS Status of ROS 10 or more systems reviewed and unremark able except as noted in history and below [facility] Medical History (Updated 04/24/24 @ 12:29 by Shaikh Olamide MD) Fusion of lumbar spine ?M43.26 - Fusion of spine, lumbar region (ICD-10) HTN (hypertension) ?I10 - Essential (primary) hypertension (ICD-10) Surgical History (Updated 04/17/24 @ 03:34 by Krystal Molina) Bariatric surgery status ?Z98.84 - Bariatric surgery status (ICD-10) Social History (Updated 04/24/24 @ 12:30 by Shaikh Olamide MD) Within the past year, how often did you have a drink containing alcohol: never Within the past year, how many standard drinks containing alcohol did you have on a typical day: 1 or 2 Within the past year, how often did you have six or more drinks on one occasion: never Total score: 0 Score interpretation: A score less than 3 is consistent with normal alcohol consumption. Smoking status: Never smoker Non-prescribed substance use: denies use Highest level of school completed/degree received: Associate degree: occupational, technical, vocational program Little interest or pleasure in doing things: more than half the days Feeling down, depressed, or hopeless: not at all Meds Home Medications and Allergies Home Medications ?Medication ?Instructions ?Recorded ?Confirmed ?Type losartan 100 mg tablet 100 mg PO DAILY 04/17/24 04/24/24 History gabapentin 300 mg capsule 300 mg PO Q8H 04/24/24 04/24/24 History Allergies Allergy/AdvReac Type Severity Reaction Status Date / Time Sulfa (Sulfonamide Allergy Rash Verified 04/17/24 03:28 Antibiotics) codeine AdvReac Nausea Verified 04/17/24 03:28 Exam Constitutional Vital Signs, click to edit/add: Last Vital Signs Temp 97.8 F 04/23/24 12:20 Pulse 71 04/23/24 16:31 Resp 16 04/23/24 16:31 BP 127/75 04/23/24 16:31 Pulse Ox 97 04/23/24 16:31 O2 Del Method Room Air 04/23/24 12:20 Documenting provider has reviewed patient's vital signs: yes Common normals: oriented x3 General appearance: cooperative, in distress mild (appears in pain) and lethargic HENMT Common normals: normocephalic and head/scalp atraumatic Head and scalp: normocephalic and atraumatic Eye Common normals: conjunctivae normal and no scleral icterus Conjunctiva: conjunctiva(e) normal Respiratory Common normals: normal respiratory effort and clear to auscultation bilaterally Effort & inspection: able to speak in complete sentences Auscultation: clear to auscultation bilaterally Cardio Common normals: regular rate, S1 normal heart sound and S2 normal heart sound Rate: regular rate Heart sounds: S1 normal and S2 normal GI Common normals: Normal to inspection, nondistended, normoactive bowel sounds present, soft to palpation, non-tender and no hepatosplenomegaly Palpation: soft and no hepatosplenomegaly Back & Pelvis Common normals: thoracic and lumbar spine normal to inspection Thoracic spine/upper back: normal to inspection, pain with ROM, paraspinal muscle tenderness Thoracic paraspinal muscle tenderness: left and paraspinal muscle spasm Thoracic paraspinal muscle spasm: left Lumbar spine/lower back: normal to inspection and pain with ROM Extremity Common normals: no clubbing, cyanosis or edema Neuro Common normals: oriented x3, moves all extremities and no focal motor deficits Psych Common normals: mental status grossly normal, denies hallucinations, denies homicidal ideation and denies suicidal ideation Results Labs Labs: Short CBC 04/23/24 Range/Units 12:35 WBC 6.5 (4.0-11.0) 10^3/uL Hgb 10.7 L (12.0-16.0) g/dL Hct 33.8 L (36.0-48.0) % Plt Count 219 (150-450) 10^3/uL BMP 04/23/24 12:35 Sodium 132 L Potassium 3.6 Chloride 98 Carbon Dioxide 28.2 BUN 17.0 Creatinine 1.03 H Glucose 203 H Calcium 8.5 Liver Function 04/23/24 Range/Units 12:35 Total Bilirubin 0.5 (0.2-1.0) mg/dL AST 19 (15-37) U/L ALT 21 (14-59) U/L Alkaline Phosphatase 116 (46-116) U/L Albumin 2.4 L (3.4-5.0) g/dL Urine 04/23/24 Range/Units 13:40 Urine Color Dk. yellow (YELLOW) Urine Clarity Clear (CLEAR) Urine pH 6.0 (5.0-9.0) Ur Specific [place] 1.020 (1.005-1.025) Urine Protein Trace (NEG/TRACE) mg/dL Urine Glucose (UA) Negative (NEGATIVE) mg/dL Assessment and Plan Assessment and Plan (1) Serratia marcescens infection: Assessment and Plan: Initially started on rocephin. Changed to IV Fortaz with gentamycin. Repeat Blood cx ordered. (2) Bacteremia due to Gram-negative bacteria: Assessment and Plan: Repeat blood cx ordered. Started on Fortaz/gentamycin (3) Intractable back pain: Assessment and Plan: No midline tenderness. No acute finding on CT. No neurological deficit. Patient complaints of intractable back pain. PT/OT eval. C/w supportive care. (4) Kidney calculi: Assessment and Plan: Small, non obs in right kidney. Monitor. (5) HTN (hypertension): Assessment and Plan: at goal. c/w losartan. Qualifiers: Hypertension type: primary hypertension Qualified Code(s): I10 - Essential (primary) hypertension
[2024-04-23] MEDS: BACLOFEN 10 MG TABLET PO ×2 (17:14→21:14)
[2024-04-23] MEDS: CEFTRIAXONE 1,000 MG in 0.9 % SODIUM CHLORIDE 50 ML 100 MG IV (17:15)
[2024-04-23] MEDS: LACTATED RINGER'S SOLUTION 1,000 ML 100 ML IV (17:15)
[2024-04-23] MEDS: GENTAMICIN SULFATE 120 MG in 0.9 % SODIUM CHLORIDE 100 ML 206 MG IV (18:05)
[2024-04-23] MEDS: DOCUSATE SODIUM 100 MG CAPSULE PO (21:14)
[2024-04-23] MEDS: OXYCODONE HCL 5 MG TABLET PO (21:14)
[2024-04-23] MEDS: ACETAMINOPHEN 325 MG TABLET 650 MG PO (21:15)
[2024-04-24] VITALS (11 sets, daily range): BP systolic 115–134; BP diastolic 70–75; PULSE 69–105; TEMP 36.4–37.2; O2SAT 85–95
[2024-04-24] MEDS: HYDROMORPHONE HCL 0.5 MG/0.5 ML SYRINGE IV ×2 (00:15→05:35)
[2024-04-24] MEDS: GENTAMICIN SULFATE 120 MG in 0.9 % SODIUM CHLORIDE 100 ML 206 MG IV ×3 (02:47→18:00)
[2024-04-24] MEDS: LACTATED RINGER'S SOLUTION 1,000 ML 100 ML IV ×2 (05:35→16:36)
[2024-04-24] MEDS: BACLOFEN 10 MG TABLET PO ×3 (05:36→21:15)
[2024-04-24] MEDS: CEFTAZIDIME 1,000 MG in 0.9 % SODIUM CHLORIDE 50 ML 100 MG IV ×2 (05:43→16:36)
[2024-04-24 06:00] LABS: Basophils Percent Auto 0.4 % (0.2-2.0); Eosinophils Percent Auto 0.6 % (0.9-7.0); Hematocrit 31.5 % (36.0-48.0); Hemoglobin 9.9 g/dL (12.0-16.0); Immature Granulocytes Abs Auto 0.05 10^3/uL (0.00-0.03); Immature Granulocytes Pct Auto 0.7 % (0.0-0.5); Lymphocytes Absolute Auto 1.1 10^3/uL (1.2-3.8); Lymphocytes Percent Auto 16.1 % (20.5-60.0); Mean Corpuscular HGB Conc 31.4 g/dL (29.9-35.2); Mean Corpuscular Hemoglobin 28.1 pg (26.7-34.0); Mean Corpuscular Volume 89.5 fL (81.0-99.0); Mean Platelet Volume 10.3 fL (9.5-13.5); Monocytes Absolute Auto 0.7 10^3/uL (0.3-0.8); Monocytes Percent Auto 9.6 % (1.7-12.0); Neutrophils Absolute Auto 5.1 10^3/uL (1.4-6.5); Neutrophils Percent Auto 72.6 % (43.0-75.0); Platelet Count 217 10^3/uL (150-450); Red Blood Count 3.52 10^6/uL (4.20-5.40); Red Cell Distribution Width 14.1 % (11.0-15.0); White Blood Count 7.1 10^3/uL (4.0-11.0)
[2024-04-24 06:19] LABS: Alanine Aminotransferase 28 U/L (14-59); Albumin Globulin Ratio 0.6; Albumin Level 2.2 g/dL (3.4-5.0); Alkaline Phosphatase 118 U/L (46-116); Aspartate Amino Transferase 26 U/L (15-37); BUN Creatinine Ratio 21.8; Bilirubin Total 0.4 mg/dL (0.2-1.0); Calcium 8.2 mg/dL (8.5-10.1); Carbon Dioxide 28.4 mmol/L (21.0-32.0); Chloride 100 mmol/L (98-107); Estimated GFR (African America >60 (>=60); Estimated GFR (Non-African Ame >60 (>=60); Globulin 3.8 g/dL; Glucose 136 mg/dL (74-106); Potassium 4.4 mmol/L (3.5-5.1); Sodium 134 mmol/L (136-145)
[2024-04-24] MEDS: LOSARTAN POTASSIUM 50 MG TABLET 100 MG PO (08:45)
[2024-04-24] MEDS: OXYCODONE HCL 5 MG TABLET PO ×3 (08:45→23:22)
[2024-04-24] MEDS: ENOXAPARIN SODIUM 40 MG/0.4 ML SYRINGE SUBQ (08:45)
[2024-04-24] MEDS: ACETAMINOPHEN 325 MG TABLET 650 MG PO ×3 (08:45→23:24)
[2024-04-24] MEDS: OMEPRAZOLE 20 MG CAPSULE.DR PO (08:45)
[2024-04-24] MEDS: CETIRIZINE HCL 10 MG TABLET PO (08:45)
[2024-04-24] MEDS: DOCUSATE SODIUM 100 MG CAPSULE PO ×2 (08:45→21:15)
--- NOTE | 2024-04-24 12:34 | PM.IMPN1 ---
Progress Note: A&P Assessment and Plan (1) Serratia marcescens infection: Assessment and Plan: On IV Fortaz/gentamycin. Repeat blood cx are pending. (2) Bacteremia due to Gram-negative bacteria: Assessment and Plan: Repeat blood cx pending. C/w IV fortaz/gentamycin. (3) Intractable back pain: Assessment and Plan: Slightly improved. C/w supportive measures. PT/OT eval. (4) Kidney calculi: Assessment and Plan: Non obs renal stones. No intervention needed. (5) HTN (hypertension): Assessment and Plan: BP stable. C/w losartan. Qualifiers: Hypertension type: primary hypertension Qualified Code(s): I10 - Essential (primary) hypertension Internal Medicine - PN: Subj Subjective Interval history: Seen and examined. Pain is slightly better but patient still feels overall weak/tired. She was diaphoretic when I walked in to evaluate her. Exam Constitutional Vital Signs, click to edit/add: Last Vital Signs Temp 97.5 F L 04/24/24 08:48 Pulse 83 04/24/24 08:48 Resp 22 H 04/24/24 08:48 BP 122/70 04/24/24 08:48 Pulse Ox 91 L 04/24/24 11:23 O2 Del Method Room Air 04/24/24 11:23 O2 Flow Rate 2 04/24/24 04:00 Documenting provider has reviewed patient's vital signs: yes Common normals: oriented x3 General appearance: cooperative Other: diaphoretic. Respiratory Common normals: normal respiratory effort and clear to auscultation bilaterally Effort & inspection: able to speak in complete sentences Auscultation: clear to auscultation bilaterally Cardio Common normals: regular rate, S1 normal heart sound and S2 normal heart sound Rate: regular rate Heart sounds: S1 normal and S2 normal GI Common normals: Normal to inspection, nondistended, normoactive bowel sounds present, soft to palpation, non-tender and no hepatosplenomegaly Palpation: soft and no hepatosplenomegaly Back & Pelvis Common normals: thoracic and lumbar spine normal to inspection Thoracic spine/upper back: normal to inspection, pain with ROM, paraspinal muscle tenderness Thoracic paraspinal muscle tenderness: left and paraspinal muscle spasm Thoracic paraspinal muscle spasm: left Lumbar spine/lower back: normal to inspection and pain with ROM Extremity Common normals: no clubbing, cyanosis or edema Neuro Common normals: oriented x3, moves all extremities and no focal motor deficits Psych Common normals: mental status grossly normal, denies hallucinations, denies homicidal ideation and denies suicidal ideation Internal Medicine - PN: Obj Da Labs Labs: Laboratory Results - last 24 hr 04/23/24 04/23/24 04/24/24 12:35 13:40 05:32 WBC 6.5 7.1 RBC 3.81 L 3.52 L Hgb 10.7 L 9.9 L Hct 33.8 L 31.5 L MCV 88.7 89.5 MCH 28.1 28.1 MCHC 31.7 31.4 RDW 13.6 14.1 Plt Count 219 217 MPV 10.5 10.3 Neut % (Auto) 72.6 Lymph % (Auto) 16.1 L [place] % (Auto) 9.6 Eos % (Auto) 0.6 L Baso % (Auto) 0.4 Neut # (Auto) 5.1 Lymph # (Auto) 1.1 L [place] # (Auto) 0.7 Eos # (Auto) 0.0 Baso # (Auto) 0.0 Abs Immat Gran (auto) 0.05 H Seg Neuts % (Manual) 82.0 H Lymphocytes % (Manual) 9.0 L Monocytes % (Manual) 9.0 Eosinophils % (Manual) 0.0 L Basophils % (Manual) 0.0 L Imm/Tot Granulo (auto) 0.7 H Neutrophils # (Manual) 5.33 Lymphocytes # (Manual) 0.58 L Monocytes # (Manual) 0.58 Eosinophils # (Manual) 0.00 Basophils # (Manual) 0.00 Sodium 132 L 134 L Potassium 3.6 4.4 Chloride 98 100 Carbon Dioxide 28.2 28.4 Anion Gap 9.4 10.0 BUN 17.0 17.0 Creatinine 1.03 H 0.78 Est GFR ( Amer) >60 >60 Est GFR (Non-Af Amer) 53 L >60 BUN/Creatinine Ratio 16.5 21.8 Glucose 203 H 136 H Lactate 1.3 Calcium 8.5 8.2 L Total Bilirubin 0.5 0.4 AST 19 26 ALT 21 28 Alkaline Phosphatase 116 118 H Troponin I High Sens 12.9 Total Protein 6.5 6.0 L Albumin 2.4 L 2.2 L Globulin 4.1 3.8 Albumin/Globulin Ratio 0.6 0.6 Urine Color Dk. yellow Urine Clarity Clear Urine pH 6.0 Ur Specific [place] 1.020 Urine Protein Trace Urine Glucose (UA) Negative Urine Ketones 15 A Urine Occult Blood Negative Urine Nitrite Negative Urine Bilirubin Negative Urine Urobilinogen 0.2 Ur Leukocyte Esterase Negative
[2024-04-24] MEDS: POLYETHYLENE GLYCOL 3350 17 GM POWDER PACKET PO (13:54)
[2024-04-24] MEDS: GABAPENTIN 300 MG CAPSULE PO ×2 (13:54→21:15)
[2024-04-25] MEDS: GENTAMICIN SULFATE 120 MG in 0.9 % SODIUM CHLORIDE 100 ML 150 MG IV (03:05)
[2024-04-25] MEDS: LACTATED RINGER'S SOLUTION 1,000 ML 100 ML IV (04:04)
[2024-04-25] MEDS: CEFTAZIDIME 1,000 MG in 0.9 % SODIUM CHLORIDE 50 ML 100 MG IV (04:04)
[2024-04-25 04:06] VITALS: O2SAT 91
[2024-04-25] MEDS: GABAPENTIN 300 MG CAPSULE PO ×2 (05:21→15:36)
[2024-04-25] MEDS: BACLOFEN 10 MG TABLET PO ×2 (05:21→11:53)
[2024-04-25 05:23] VITALS: BP 119/73; PULSE 76; TEMP 36.8; O2SAT 92
[2024-04-25 05:52] LABS: Basophils Percent Auto 0.2 % (0.2-2.0); Eosinophils Absolute Auto 0.1 10^3/uL (0.0-0.7); Hemoglobin 9.6 g/dL (12.0-16.0); Immature Granulocytes Abs Auto 0.04 10^3/uL (0.00-0.03); Immature Granulocytes Pct Auto 0.7 % (0.0-0.5); Lymphocytes Percent Auto 16.9 % (20.5-60.0); Mean Corpuscular Hemoglobin 28.2 pg (26.7-34.0); Mean Corpuscular Volume 91.2 fL (81.0-99.0); Mean Platelet Volume 9.8 fL (9.5-13.5); Monocytes Absolute Auto 0.7 10^3/uL (0.3-0.8); Neutrophils Absolute Auto 4.2 10^3/uL (1.4-6.5); Neutrophils Percent Auto 70.2 % (43.0-75.0); Platelet Count 236 10^3/uL (150-450); Red Cell Distribution Width 14.2 % (11.0-15.0); White Blood Count 5.9 10^3/uL (4.0-11.0)
[2024-04-25 06:03] LABS: Alanine Aminotransferase 37 U/L (14-59); Albumin Globulin Ratio 0.5; Albumin Level 1.9 g/dL (3.4-5.0); Alkaline Phosphatase 126 U/L (46-116); Aspartate Amino Transferase 40 U/L (15-37); BUN Creatinine Ratio 16.4; Bilirubin Total 0.3 mg/dL (0.2-1.0); Calcium 8.4 mg/dL (8.5-10.1); Carbon Dioxide 31.7 mmol/L (21.0-32.0); Chloride 102 mmol/L (98-107); Estimated GFR (African America >60 (>=60); Estimated GFR (Non-African Ame >60 (>=60); Globulin 3.8 g/dL; Glucose 128 mg/dL (74-106); Potassium 4.7 mmol/L (3.5-5.1); Sodium 136 mmol/L (136-145); Total Protein 5.7 g/dL (6.4-8.2)
[2024-04-25] MEDS: OXYCODONE HCL 5 MG TABLET PO ×2 (06:21→15:36)
[2024-04-25] MEDS: ACETAMINOPHEN 325 MG TABLET 650 MG PO (06:21)
[2024-04-25 07:32] VITALS: BP 128/74; PULSE 70; TEMP 36.8; O2SAT 94
--- NOTE | 2024-04-25 08:57 | MR_ITS ---
The [address] [address] Patient Name: JAMES AYALA MRN: [facility]:[id number] date: 1955 Sex: F Assigned Patient Location: [place] Current Patient Location: .MAIN Accession/Order Number: [id number] Exam Date: 04/25/2024 11:10 Report Date: 04/25/2024 13:16 At the request of: SHAIKH FRANDY Procedure: MR lumbar spine wo con EXAM: MR lumbar spine wo con HISTORY: Intractable back pain/positive blood culture COMPARISON: CT abdomen pelvis 04/17/2024. TECHNIQUE: Multiplanar multisequence MR imaging of the lumbar spine was performed without intravenous contrast. FINDINGS: Alignment: Trace anterolisthesis of L3 on L4. Straightening of the normal lumbar lordosis. Vertebrae: Subacute chronic compression fracture of L1 with approximately 70% central height loss with minimal marrow edema which is stable from 04/17/2024 but new from 2020. No marrow signal abnormalities to suggest neoplasm. Iliac changes are present spanning L3-L5 with associated fixation hardware resulting in susceptibility artifact. Conus medullaris: Conus medullaris terminates in normal position at L2. Normal signal and contour. Degenerative changes: T12-L1: No substantial canal or foraminal stenosis. L1-L2: No substantial canal or foraminal stenosis. L2-L3: Mild Disc Bulge. Mild left greater right facet arthropathy. Mild to moderate canal stenosis. Moderate bilateral foraminal stenosis. L3-L4: Minimal disc bulge. Mild facet arthropathy. Postsurgical change of the facet joints. No substantial canal stenosis. Moderate left and mild right foraminal stenosis. L4-L5: Mild height 1 Modic change mild type II Modic change surrounds the disc space. Diffuse disc bulge with left central/diverticular protrusion. Post surgical change of the facet joints. Mild canal stenosis with narrowing of the subarticular recess. Moderate left greater than right foraminal stenosis. L5-S1: Small central protrusion. Minimal facet arthropathy. Query prior right laminectomy. No substantial canal stenosis. Moderate left and minimal right foraminal stenosis. Upper Sacrum: No focal lesion identified. Additional comments: Too small to characterize subcentimeter T2 hyperintense cystic lesion involving the posterior cortical margin of the left kidney. MR/MR lumbar spine wo con IMPRESSION: 1. Subacute to chronic compression fracture of L1 with 70% central height loss and minimal marrow edema stable from 04/17/2024 but new from 2020. 2. Moderate degenerative change of the lumbar spine proposed on PLIF change as detailed above. Electronically authenticated by: GLADYS KERNS Date: 04/25/2024 13:16
--- NOTE | 2024-04-25 09:10 | CM.NOTE ---
Rounds made with Dr. Quiñonez, pt very tearful from back pain. Dr. Quiñonez ordering MRI d/t continued back pain. Possible discharge this afternoon if MRI negative.
[2024-04-25] MEDS: POLYETHYLENE GLYCOL 3350 17 GM POWDER PACKET PO (09:14)
[2024-04-25] MEDS: ENOXAPARIN SODIUM 40 MG/0.4 ML SYRINGE SUBQ (09:14)
[2024-04-25] MEDS: LOSARTAN POTASSIUM 50 MG TABLET 100 MG PO (09:14)
[2024-04-25] MEDS: OMEPRAZOLE 20 MG CAPSULE.DR PO (09:14)
[2024-04-25] MEDS: DOCUSATE SODIUM 100 MG CAPSULE PO (09:14)
[2024-04-25] MEDS: CETIRIZINE HCL 10 MG TABLET PO (09:14)
--- NOTE | 2024-04-25 09:24 | PM.IMPN1 ---
Progress Note: A&P Assessment and Plan (1) Serratia marcescens infection: Assessment and Plan: On IV Fortaz/gentamycin. Repeat blood cx are pending. (2) Bacteremia due to Gram-negative bacteria: Assessment and Plan: Repeat blood cx pending. C/w IV fortaz/gentamycin. (3) Intractable back pain: Assessment and Plan: Worse, persistent and no improvement. Midline and left sided tenderness in lumbar region. In the context of bacteremia, prior hx of lumbar fusion, persistent lumbar pain, concern is for epidural abscess/discitis due to bacteremia. While serratia bacteremia is not typically implicated in spinal cord/vertebral column, it can certainly do so and have been reported in the past. Will order an MRI L spine to r/o vertebral/spinal involvement. Patient also had PT/OT and was recommended that she will benefit from using a Roller Walker to help improve her pain/ability to ambulate safely and steady her balance/gait. (4) Kidney calculi: Assessment and Plan: Non obs renal stones. No intervention needed. (5) HTN (hypertension): Assessment and Plan: BP stable. C/w losartan. Qualifiers: Hypertension type: primary hypertension Qualified Code(s): I10 - Essential (primary) hypertension Internal Medicine - PN: Subj Subjective Interval history: Seen and examined. Patient tearful and crying because of her back pain. She is extremely worried about her back pain and feels that the screws from lumbar fusion may have gotten loose. No new neurological signs or symptoms but pain is throughout thoracolumbar region, worse on the left side with midline and left sided tenderness in the lumbar region Exam Constitutional Vital Signs, click to edit/add: Last Vital Signs Temp 98.2 F 04/25/24 07:32 Pulse 70 04/25/24 07:32 Resp 18 04/25/24 07:33 BP 128/74 04/25/24 07:32 Pulse Ox 94 L 04/25/24 07:32 O2 Del Method Nasal Cannula 04/25/24 07:32 O2 Flow Rate 2 04/25/24 07:32 Documenting provider has reviewed patient's vital signs: yes Common normals: oriented x3 General appearance: cooperative and anxious Other: Tearful and crying. Respiratory Common normals: normal respiratory effort and clear to auscultation bilaterally Effort & inspection: able to speak in complete sentences Auscultation: clear to auscultation bilaterally Cardio Common normals: regular rate, S1 normal heart sound and S2 normal heart sound Rate: regular rate Heart sounds: S1 normal and S2 normal Back & Pelvis Common normals: thoracic and lumbar spine normal to inspection Thoracic spine/upper back: normal to inspection and pain with ROM Lumbar spine/lower back: normal to inspection, pain with ROM, lumbar spinal tenderness, paraspinal muscle tenderness Lumbar paraspinal muscle tenderness: left and paraspinal muscle spasm Lumbar paraspinal muscle spasm: left Extremity Common normals: no clubbing, cyanosis or edema Neuro Common normals: oriented x3, moves all extremities and no focal motor deficits Psych Common normals: mental status grossly normal, denies hallucinations, denies homicidal ideation and denies suicidal ideation Internal Medicine - PN: Obj Da Labs Labs: Laboratory Results - last 24 hr 04/25/24 05:31 WBC 5.9 RBC 3.40 L Hgb 9.6 L Hct 31.0 L MCV 91.2 MCH 28.2 MCHC 31.0 RDW 14.2 Plt Count 236 MPV 9.8 Neut % (Auto) 70.2 Lymph % (Auto) 16.9 L [place] % (Auto) 11.0 Eos % (Auto) 1.0 Baso % (Auto) 0.2 Neut # (Auto) 4.2 Lymph # (Auto) 1.0 L [place] # (Auto) 0.7 Eos # (Auto) 0.1 Baso # (Auto) 0.0 Abs Immat Gran (auto) 0.04 H Imm/Tot Granulo (auto) 0.7 H Sodium 136 Potassium 4.7 Chloride 102 Carbon Dioxide 31.7 Anion Gap 7.0 BUN 10.0 Creatinine 0.61 Est GFR ( Amer) >60 Est GFR (Non-Af Amer) >60 BUN/Creatinine Ratio 16.4 Glucose 128 H Calcium 8.4 L Total Bilirubin 0.3 AST 40 H ALT 37 Alkaline Phosphatase 126 H Total Protein 5.7 L Albumin 1.9 L Globulin 3.8 Albumin/Globulin Ratio 0.5
[2024-04-25] MEDS: HYDROMORPHONE HCL 0.5 MG/0.5 ML SYRINGE IV (11:53)
[2024-04-25] MEDS: GENTAMICIN SULFATE 120 MG in 0.9 % SODIUM CHLORIDE 100 ML 206 MG IV (11:53)
--- NOTE | 2024-04-25 12:01 | CM.NOTE ---
Medicare Outpatient Observation Notice discussed with pt, pt verbalizes understanding and signs paper. Original given to pt and copy placed on pt's chart.
--- NOTE | 2024-04-25 13:12 | SWNOTE1 ---
SW met with pt and in room. Pt lives at home with . Pt uses a walker or wheelchair at home. Pt has hand rails that she uses in the bathroom. Pt denies having any needs at this time. Pt had MRI and waiting on results. Pt is wearing oxygen at the hospital, but does not wear it at home. At this time no anticipated discharge needs.
[2024-04-25 16:09] VITALS: O2SAT 92
[2024-04-26 13:08] LABS: A. calcoaceticus-baumannii Cpx NOT DETECTED (NOT DETECTE); Bacteroides fragilis NOT DETECTED (NOT DETECTE); Candida albicans NOT DETECTED (NOT DETECTE); Candida auris NOT DETECTED (NOT DETECTE); Candida glabrata NOT DETECTED (NOT DETECTE); Candida krusei NOT DETECTED (NOT DETECTE); Candida parapsilosis NOT DETECTED (NOT DETECTE); Candida tropicalis NOT DETECTED (NOT DETECTE); Cryptococcus neoformans/gattii NOT DETECTED (NOT DETECTE); Enterobacter cloacae complex NOT DETECTED (NOT DETECTE); Enterococcus faecalis NOT DETECTED (NOT DETECTE); Enterococcus faecium NOT DETECTED (NOT DETECTE); Haemophilus influenzae NOT DETECTED (NOT DETECTE); Klebsiella aerogenes NOT DETECTED (NOT DETECTE); Klebsiella pneumoniae group NOT DETECTED (NOT DETECTE); Listeria monocytogenes NOT DETECTED (NOT DETECTE); Neisseria meningitidis NOT DETECTED (NOT DETECTE); Proteus spp. NOT DETECTED (NOT DETECTE); Pseudomonas aeruginosa NOT DETECTED (NOT DETECTE); Salmonella spp. NOT DETECTED (NOT DETECTE); Staphylococcus epidermidis NOT DETECTED (NOT DETECTE); Staphylococcus lugdunensis NOT DETECTED (NOT DETECTE); Staphylococcus spp. NOT DETECTED (NOT DETECTE); Stenotrophomonas maltophilia NOT DETECTED (NOT DETECTE); Streptococcus agalactiae NOT DETECTED (NOT DETECTE); Streptococcus pneumoniae NOT DETECTED (NOT DETECTE); Streptococcus pyogenes NOT DETECTED (NOT DETECTE); Streptococcus spp. NOT DETECTED (NOT DETECTE)
[2024-04-26 16:27] LABS: CTX-M NOT DETECTED (NOT DETECTE); IMP NOT DETECTED (NOT DETECTE); KPC NOT DETECTED (NOT DETECTE); NDM NOT DETECTED (NOT DETECTE); OXA-48-like NOT DETECTED (NOT DETECTE); Source BLOOD; VIM NOT DETECTED (NOT DETECTE)
[2024-04-26 16:28] LABS: Enterobacterales DETECTED (NOT DETECTE); Serratia marcescens DETECTED (NOT DETECTE)
--- NOTE | 2024-04-27 14:43 | CM.DCFOLLOWU ---
Person spoke with:patient How are you feeling? not doing well, pain How is your pain? in a lot of pain Did you understand your discharge instructions?yes Do you have any questions about your discharge instructions?no Were you given any prescriptions at discharge? yes Were you able to get your prescriptions filled?yes Do you understand how to take your medications as ordered? yes Do you have any questions about your follow up appointment and do you plan to keep your follow up appointment? no questions, had follow up today with orthopedic surgeon, they are requesting imaging from stay. Advised pt that she will have to call or stop in to medical records. Provided her with extension for medical records Is there anything else that you would like to discuss?no Questions/Comments/Concerns/Other:none
== END 2024-04-25 16:20 | disposition home or self-care (01) ==
LOC: ER 16:11 → MS 16:57
PROVIDERS: Admitting Provider Internal Medicine; Emergency Provider Emergency Medicine; Visit Provider Internal Medicine
DX: R78.81 Bacteremia (principal); B96.89 Other specified bacterial agents as the cause of diseases classified elsewhere; E86.0 Dehydration; I10 Essential (primary) hypertension; Z79.899 Other long term (current) drug therapy; N20.0 Calculus of kidney; M54.9 Dorsalgia, unspecified; Z98.1 Arthrodesis status
CPT/HCPCS: 36415; 72148; 74177; 80053; 81003; 83605; 84484; 85007; 85025; 85027; 87040; 87150; 93005; 94761; 96361; 96365; 96366; 96367; 96368; 96372; 96375; 96376; 97162; 97165; 97530; 99285; G0378; J0696; J0713; J1170; J1580; J1650; J1885; J2270; J2405; Q9967